=== PATIENT | female | born 1960 | race Caucasian/White ===

== ENCOUNTER 2021-04-11 20:21 | Inpatient (IN) | payer BC, SELFPAY ==
[2021-04-11] VITALS (7 sets, daily range): BP systolic 135–146; BP diastolic 85–90; PULSE 70–82; RESP 16–22; TEMP 37; O2SAT 97–98; BMI 22.7
--- NOTE | 2021-04-11 | ECG_ITS ---
Test Reason : BEHAVIROL Blood Pressure : / mmHG Vent. Rate : 076 BPM Atrial Rate : 076 BPM P-R Int : 172 ms QRS Dur : 066 ms QT Int : 392 ms P-R-T Axes : 068 -28 040 degrees QTc Int : 441 ms Normal sinus rhythm Minimal voltage criteria for LVH, may be normal variant Borderline ECG No previous ECGs available Referred By: Christian Jimenez Electronically Signed By:KEIRY MCKINNON
--- NOTE | ~2021-04-11 | XR_ITS ---
EXAMINATION: XR CHEST CLINICAL INFORMATION: Covid COMPARISON: None TECHNIQUE: Frontal view of the chest was obtained. FINDINGS: The right hemidiaphragm is mildly elevated and the lungs are hypoinflated. Degenerative changes present in the spine. No other significant abnormality is noted involving the heart, lungs, mediastinum, bony thorax or soft tissues. XR/XR chest 1V IMPRESSION: No acute intrathoracic disease
--- NOTE | ~2021-04-11 | XR_ITS ---
EXAMINATION: XR CHEST CLINICAL INFORMATION: Syncope COMPARISON: Chest x-ray 04/11/2021 TECHNIQUE: Frontal view of the chest was obtained. FINDINGS: No significant abnormality is noted involving the heart, lungs, mediastinum, bony thorax or soft tissues. XR/XR chest 1V IMPRESSION: Unremarkable chest exam.
--- NOTE | ~2021-04-11 | CT_ITS ---
EXAMINATION: CT BRAIN AND CT CERVICAL SPINE WITHOUT CONTRAST. CLINICAL INFORMATION: Fall. COMPARISON: None TECHNIQUE: 5 mm thin axial and reformatted 2 mm thin sagittal and coronal images of brain were obtained. Subsequently 3 mm thin axial and reformatted 2 mm thin sagittal and coronal images of cervical spine were obtained. DLP 1033. FINDINGS: Brain: There is no acute intra-axial, extra-axial bleed, masses, collection or midline shift. There is no acute infarction evolution. The lateral ventricles are symmetrical in size but enlarged. Bone windows reveal no calvarial abnormality. There is focal air collection the right frontoparietal scalp likely from fall. Minimal scalp hematoma with no underlying calvarial fracture seen. The paranasal sinuses and mastoid air cells are well-aerated. Cervical spine: There is normal cervical lordosis. The vertebral heights and alignment is normal. There is loss of C5-C6 disc height with moderate ventral and posterior spondylosis. There is mild ventral C6-C7 spondylosis well. The craniovertebral junction and the C1-C2 alignment is normal. There is mild C1-C2 superior spurring. The prevertebral soft tissues are normal. CT/CT head/brain wo con IMPRESSION: No acute intracranial process seen. Right frontal parietal scalp air collection likely overlying laceration and contusion. Minimal soft tissue swelling. No calvarial fracture. Mild degenerative disc changes C5-C6 disc level with mild ventral and posterior spondylosis. No visible acute fracture or dislocation seen.
--- NOTE | ~2021-04-11 | CT_ITS ---
EXAMINATION: NONCONTRAST HEAD CT NONCONTRAST CERVICAL SPINE CT INDICATION INFORMATION: Fall, seizure COMPARISON: 04/16/2021 TECHNIQUE: Separate noncontrast CT examinations of the head and cervical spine were performed. Coronal head CT images and coronal and sagittal cervical spine images were created at the technologist workstation. DLP: 929 mGy-cm DOSE LOWERING TECHNIQUES: This CT examination was performed using dose optimization techniques as appropriate, variously including the following: - Automated exposure control - Adjustment of mA and/or kV according to patient size (this includes techniques or standardized protocols for targeted exams were dose is matched to indication/reason for exam; i.e. extremities or head) - Use of iterative reconstruction technique FINDINGS: Head: Small focus of extra-axial hemorrhage is noted along the lateral right frontal lobe measuring 2 mm in thickness on image 84/172, likely subdural. There is no evidence of acute intracranial territorial infarction. No abnormal mass-effect or midline shift is seen. [place] to white matter differentiation is well preserved. The ventricles are normal in size. Mild volume loss is noted. No acute fracture is seen. There is a lateral left scalp soft tissue edema towards the vertex. Posterior right parietal skin marylu noted. The mastoid air cells and visualized portions of the paranasal sinuses are well-aerated. Cervical spine: There is anatomic alignment of the vertebral bodies and posterior elements. Vertebral body heights are maintained. There is mild disc space narrowing at C5-C6 with associated endplate osteophytes. No evidence of acute fracture. No prevertebral soft tissue swelling. Visualized portions of the lung apices are unremarkable. The thyroid gland is unremarkable. CT/CT cervical spine wo con IMPRESSION: 1. Small focus of subdural hematoma adjacent to the lateral right frontal lobe. 2. Mild lateral left scalp edema. Posterior parietal skin marylu. 3. No acute findings identified in the cervical spine. This critical result was discussed with Dr. Torres on 04/19/2021 5:52 AM, and it was ascertained that the content and urgency of the report was understood at the time of direct communication.
--- NOTE | ~2021-04-11 | CT_ITS ---
EXAMINATION: CT BRAIN AND CT CERVICAL SPINE WITHOUT CONTRAST. CLINICAL INFORMATION: Fall. COMPARISON: None TECHNIQUE: 5 mm thin axial and reformatted 2 mm thin sagittal and coronal images of brain were obtained. Subsequently 3 mm thin axial and reformatted 2 mm thin sagittal and coronal images of cervical spine were obtained. DLP 1033. FINDINGS: Brain: There is no acute intra-axial, extra-axial bleed, masses, collection or midline shift. There is no acute infarction evolution. The lateral ventricles are symmetrical in size but enlarged. Bone windows reveal no calvarial abnormality. There is focal air collection the right frontoparietal scalp likely from fall. Minimal scalp hematoma with no underlying calvarial fracture seen. The paranasal sinuses and mastoid air cells are well-aerated. Cervical spine: There is normal cervical lordosis. The vertebral heights and alignment is normal. There is loss of C5-C6 disc height with moderate ventral and posterior spondylosis. There is mild ventral C6-C7 spondylosis well. The craniovertebral junction and the C1-C2 alignment is normal. There is mild C1-C2 superior spurring. The prevertebral soft tissues are normal. CT/CT cervical spine wo con IMPRESSION: No acute intracranial process seen. Right frontal parietal scalp air collection likely overlying laceration and contusion. Minimal soft tissue swelling. No calvarial fracture. Mild degenerative disc changes C5-C6 disc level with mild ventral and posterior spondylosis. No visible acute fracture or dislocation seen.
--- NOTE | ~2021-04-11 | CT_ITS ---
EXAMINATION: CT HEAD WITHOUT CONTRAST CLINICAL INFORMATION: Head injury. Repeat seizure activity. COMPARISON: None TECHNIQUE: Contiguous axial imaging was performed from the skull base to vertex without intravenous administration of contrast. This CT examination was performed using dose optimization techniques as appropriate, variously including the following: *Automated exposure control *Adjustment of mA and/or kV according to patient size (this includes techniques or standardized protocols for targeted exams where dose is matched to indication/reason for exam; i.e. extremities or head) *Use of iterative reconstruction technique DLP: 653 mGy-cm FINDINGS: There is no evidence of acute intracranial hemorrhage or territorial infarction. No abnormal mass effect or midline shift is seen. [place] to white matter differentiation is well preserved. No extra-axial fluid collections are identified. The ventricles are normal in size. There is no abnormal attenuation within the brain parenchyma. The osseous structures and soft tissues are normal. The mastoid air cells and visualized portions of the paranasal sinuses are well aerated. CT/CT head/brain wo con IMPRESSION: No acute intracranial process seen.
--- NOTE | ~2021-04-11 | XR_ITS ---
EXAMINATION: XR WRIST, RIGHT CLINICAL INFORMATION: Pain. Fall. COMPARISON: None TECHNIQUE: PA, lateral, and oblique views of the right wrist. FINDINGS: Bone alignment is normal. No fracture or dislocation is seen. There is arthritis at the first ALF joint. Joint spaces are otherwise normal. Soft tissues are normal. XR/XR wrist RT 2V IMPRESSION: No fracture or dislocation seen.
--- NOTE | 2021-04-11 20:44 | ED.GENADULT ---
HPI - General Adult General Chief complaint: General Medical Stated complaint: AMS Time Seen by Provider: 04/11/21 20:44 Source: EMS and old records reviewed Mode of arrival: EMS History of Present Illness HPI narrative: Patient COVID positive 14 days ago came from senior care for increased agitation patient does have history of TBI, for last 2 days patient has been more agitated no fever no chills when she arrived she was saturating 97% on room air afebrile patient received 1 mg Ativan at nursing Related Data Allergies Allergy/AdvReac Type Severity Reaction Status Date / Time No Known Allergies Allergy Verified 04/11/21 20:47 Review of Systems Review of Systems: Yes Unobtainable due to mental status PMFSH Past Medical History Medical History TBI (traumatic brain injury) Social History Social History Advance Directives: No Advance Directives Information Provided: No Patient : No Physical Exam Vital Signs: Vital Signs: Last Vital Signs Temp 98.6 F 04/11/21 22:00 Pulse 65 04/12/21 00:08 Resp 15 04/12/21 00:08 BP 119/69 04/12/21 00:08 Pulse Ox 97 04/12/21 00:08 Body Mass Index 22.7 Appearance: Alert. Oriented X1-2. No acute distress. Agitated Eyes: PERRLA, no pallor icterus ENT: Pharynx normal. Oral Mucosa moist Neck: Normal inspection. Neck supple. CVS: Normal heart rate and rhythm. Pulses normal. Respiratory: No respiratory distress. Equal air entry bilateral, no wheezing/rales/rhonchi Abdomen: Soft and nontender. Bowel sounds are present, no mass palpable, no CVA tenderness Skin: Skin warm and dry. Normal skin color. Normal skin turgor. Extremities: No lower extremity edema. No calf tenderness Neuro: Oriented X1-2. No motor deficit. No sensory deficit.No cerebellar signs , cranial nerves II-XII intact Medical Decision Making MDM Narrative Medical decision making narrative: Patient workup negative for any acute symptoms from TBI with psychotic behavior no signs of COVID infection at this time saturating 97 % on room air repeat COVID test is negative patient was very agitated when arrived trying to tangle Otoscope cord over staff , [place] unable to manage , plan to place her in [facility] , case management and care team were consulted Lab Data Lab results reviewed: Yes I reviewed the patient's lab results. Result diagrams: 04/11/21 22:32 04/11/21 22:32 Labs: Lab Results 04/11/21 04/11/21 04/11/21 Range/Units 22:32 22:32 22:43 WBC 5.4 (4.8-10.8) X10*3/uL RBC 4.36 (4.20-5.50) X10*6/uL Hgb 13.1 (12.0-16.0) g/dl Hct 38.7 (37-47) % MCV 88.8 (80-98) fL MCH 30.0 (27.0-33.0) pg MCHC 33.9 (31.0-35.0) g/dl RDW 13.1 (11.0-16.0) % Plt Count 172 (160-400) X10*3/uL MPV 11.8 (9.4-12.3) fL Immature Gran % (Auto) 0.4 (0.0-0.4) % Neut % (Auto) 46.6 (45-73) % Lymph % (Auto) 43.9 H (20-40) % [place] % (Auto) 8.0 (2-11) % Eos % (Auto) 0.7 (0-4) % Baso % (Auto) 0.4 (0-2) % Lymph # (Auto) 2.4 (1.2-4.9) X10*3/uL [place] # (Auto) 0.4 (0.1-1.2) X10*3/uL Eos # (Auto) 0.0 (0.0-0.4) X10*3/uL Baso # (Auto) 0.0 (0.0-0.2) X10*3/uL Abs Immat Gran (auto) 0.02 (0.00-0.03) X10*3/uL Absolute Neuts (auto) 2.5 (2.0-8.3) X10*3/uL Absolute Nucleated RBC 0.000 (0.0-0.012) X10*3/uL Nucleated RBC % (auto) 0.0 (0.0-0.2) /100WBC Sodium 139 (135-145) mmol/L Potassium 4.5 (3.3-5.1) mmol/L Chloride 105 (96-108) mmol/L Carbon Dioxide 29 (22-29) mmol/L Anion Gap 10 L (12-20) BUN 8 L (9-16) mg/dL Creatinine 0.87 (0.5-1.4) mg/dL Estim Creat Clear Calc 65.2 Estimated GFR > 60 Random Glucose 102 (60-115) mg/dL Calcium 9.9 (8.4-10.2) mg/dL Total Bilirubin 0.9 (0.0-1.0) mg/dL AST 15 (5-31) U/L ALT 7 (0-31) U/L Alkaline Phosphatase 53 (39-117) U/L Total Protein 6.5 (6.5-8.0) g/dL Albumin 4.0 (3.5-5.0) g/dL Urine Color Urine Appearance Urine pH (5.0-8.0) Ur Specific [place] (1.005-1.025) Urine Protein (NEG-TRACE) MG/DL Urine Glucose (UA) (NEG) MG/DL Urine Ketones (NEG) MG/DL Urine Blood (NEG) Urine Nitrite (NEG) Ur Leukocyte Esterase (NEG) COVID-19 (ASAD) Negative (Negative) COVID-19 Clin Com See Note 04/11/21 Range/Units 22:43 WBC (4.8-10.8) X10*3/uL RBC (4.20-5.50) X10*6/uL Hgb (12.0-16.0) g/dl Hct (37-47) % MCV (80-98) fL MCH (27.0-33.0) pg MCHC (31.0-35.0) g/dl RDW (11.0-16.0) % Plt Count (160-400) X10*3/uL MPV (9.4-12.3) fL Immature Gran % (Auto) (0.0-0.4) % Neut % (Auto) (45-73) % Lymph % (Auto) (20-40) % [place] % (Auto) (2-11) % Eos % (Auto) (0-4) % Baso % (Auto) (0-2) % Lymph # (Auto) (1.2-4.9) X10*3/uL [place] # (Auto) (0.1-1.2) X10*3/uL Eos # (Auto) (0.0-0.4) X10*3/uL Baso # (Auto) (0.0-0.2) X10*3/uL Abs Immat Gran (auto) (0.00-0.03) X10*3/uL Absolute Neuts (auto) (2.0-8.3) X10*3/uL Absolute Nucleated RBC (0.0-0.012) X10*3/uL Nucleated RBC % (auto) (0.0-0.2) /100WBC Sodium (135-145) mmol/L Potassium (3.3-5.1) mmol/L Chloride (96-108) mmol/L Carbon Dioxide (22-29) mmol/L Anion Gap (12-20) BUN (9-16) mg/dL Creatinine (0.5-1.4) mg/dL Estim Creat Clear Calc Estimated GFR Random Glucose (60-115) mg/dL Calcium (8.4-10.2) mg/dL Total Bilirubin (0.0-1.0) mg/dL AST (5-31) U/L ALT (0-31) U/L Alkaline Phosphatase (39-117) U/L Total Protein (6.5-8.0) g/dL Albumin (3.5-5.0) g/dL Urine Color YELLOW Urine Appearance CLEAR Urine pH 6.5 (5.0-8.0) Ur Specific [place] <= 1.005 (1.005-1.025) Urine Protein NEG (NEG-TRACE) MG/DL Urine Glucose (UA) NEG (NEG) MG/DL Urine Ketones NEG (NEG) MG/DL Urine Blood NEG (NEG) Urine Nitrite NEG (NEG) Ur Leukocyte Esterase NEG (NEG) COVID-19 (ASAD) (Negative) COVID-19 Clin Com Discharge Plan Discharge Clinical Impression: Restlessness and agitation Instructions: Conduct Disorder (ED)
[2021-04-11] MEDS: Haloperidol Lactate 5 MG/ML VIAL 2 MG IM (21:12)
[2021-04-11] MEDS: LORazepam 2 MG/ML VIAL IM (21:13)
--- NOTE | 2021-04-11 21:45 | PC.NURSE ---
PATIENT IS AGITATED ON ARRIVAL, TAKING MEDICAL EQUIPMENT OFF THE WALL AND TARGETING STAFF MEMBERS ATTEMPTING TO HURT THEM. SWEARING AND YELLING AT STAFF MEMBERS. KICKING, SEVERLY AGITATED. MD ORDERS TO IM MEDIATIONS FOR BEHAVIORA SNA TO HELP GET PATIENT IN BEHAVIORAL CONTROL. PATIENTS DAUGHTER INT HE WAITING ROOM, INFORMING DAUGHTER OF PLAN OF CARE ONCE PATIENT IS ABLE TO FURTHER EXPRESS HERSELF. MEDICATED TO HAVE PATIENT BETTER PARTICIPATE IN HER PLAN OF CARE. PATIENT BECOMING MORE CALM AND TIRED, NOT FALLING ASLEEP BUT ABLE TO TALK CALMLY TO STAFF.
--- NOTE | 2021-04-11 22:03 | PC.NURSE ---
DAUGHTER'S NUMBER IS [phone]. DAUGHTER WOULD LIKE TO BE CONTACTED PRIOR TO ANY MEDICATION ADMINISTRATION AND WITH RESULTS.
[2021-04-11 22:38] LABS: MANUAL DIFF FLAG NO
[2021-04-11 22:39] LABS: Basophils Percent Auto 0.4 % (0-2); Eosinophils Percent Auto 0.7 % (0-4); Hematocrit 38.7 % (37-47); Hemoglobin 13.1 g/dl (12.0-16.0); Imm Gran Abs Auto 0.02 X10*3/uL (0.00-0.03); Imm Gran Pct Auto 0.4 % (0.0-0.4); Lymphocytes Absolute Auto 2.4 X10*3/uL (1.2-4.9); Lymphocytes Percent Auto 43.9 % (20-40); Mean Corpuscular HGB Conc 33.9 g/dl (31.0-35.0); Mean Corpuscular Volume 88.8 fL (80-98); Mean Platelet Volume 11.8 fL (9.4-12.3); Monocytes Absolute Auto 0.4 X10*3/uL (0.1-1.2); Neutrophils Absolute Auto 2.5 X10*3/uL (2.0-8.3); Neutrophils Percent Auto 46.6 % (45-73); Platelet Count 172 X10*3/uL (160-400); Red Blood Count 4.36 X10*6/uL (4.20-5.50); Red Cell Distribution Width 13.1 % (11.0-16.0); White Blood Count 5.4 X10*3/uL (4.8-10.8)
[2021-04-11 22:51] LABS: Appearance Urine CLEAR; Color Urine YELLOW; Glucose Urine UA NEG (NEG); Leukocyte Esterase Urine NEG (NEG); Nitrite Urine NEG (NEG); PH 6.5 (5.0-8.0); Specific Gravity - Urine <= 1.005 (1.005-1.025); Urine Blood NEG (NEG); Urine Ketones NEG (NEG); Urine Protein NEG (NEG-TRACE)
[2021-04-11 22:55] LABS: Alanine Aminotransferase 7 U/L (0-31); Alkaline Phosphatase 53 U/L (39-117); Anion Gap 10 (12-20); Aspartate Amino Transferase 15 U/L (5-31); Bilirubin Total 0.9 mg/dL (0.0-1.0); Blood Urea Nitrogen 8 mg/dL (9-16); Calcium 9.9 mg/dL (8.4-10.2); Carbon Dioxide 29 mmol/L (22-29); Chloride 105 mmol/L (96-108); Creatinine Clr Calc Pharmacy 65.2; Estimated Glomerular Filt Rate > 60; Glucose Random 102 mg/dL (60-115); Potassium 4.5 mmol/L (3.3-5.1); Sodium 139 mmol/L (135-145); Total Protein 6.5 g/dL (6.5-8.0)
[2021-04-11 23:05] LABS: COVID-19 Test Negative (Negative); IDNOW Serial# 9DD0AD1C
[2021-04-12] VITALS (11 sets, daily range): BP systolic 119–138; BP diastolic 69–86; PULSE 60–71; RESP 14–20; TEMP 36.4; O2SAT 95–98
--- NOTE | 2021-04-12 00:18 | PC.NURSE ---
This RN first encounter with pt. Pt is resting with eyes closed on stretcher, arousable to voice. Pt repositioning independently. Pt with sitter 1:1. Pt denies pain/discomfort. Pt without nonverbal indicators of pain/discomfort. Pt RR even and unlabored on RA, skin warm dry and normal in appearance for age and race. Dr Wilson made aware that pt has no PIV access and that NS bolus as ordered has not been administered. Per Dr Wilson she doesn't need it. Pt stretcher in low locked position, rails raised, call chiang within reach. Pt NSR on registered nurse cardiac telemetry, vss.
--- NOTE | 2021-04-12 00:25 | PC.NURSE ---
attempted a call to the [facility] in [place]. staff member on the phone stating that there will be no nurse in the building to discuss the patient at 8am in the morning. discussing plan of care with the provider, plan will be for care team consult and case management. patient was very confused and agitated on arrival which differs from patients baseline according to the daughter.
--- NOTE | 2021-04-12 01:29 | PC.NURSE ---
Med Rec performed by this RN with MAR sent by facility. Dr Kiser made aware, this RN requested that Dr Kiser continue home meds. Pt dispo is CM and CARE team stan/marni. Sitter remains at bedside. Pt stretcher low locked, rails raised, call chiang within reach.
--- NOTE | 2021-04-12 02:12 | MHC.CARE ---
T/W spoke with RN making her aware that pt will be seen in the morning. Pt was reportedly medicated and ED staff were unable to communicate plan of care with nursing facility. Pt will be seen by CARE team.
--- NOTE | 2021-04-12 06:12 | PC.NURSE ---
Cherri, daughter and HCP, wants to be updated before any medications or decisions are made regarding pt's care. [phone]
--- NOTE | 2021-04-12 09:05 | MHC.CM.ED ---
Per Ama of Care Team, looking for information about what assisted living facility to requesting before patient return to their facility. Patient is from the [facility] in [place]. T/W spoke with ROGERIO Mccormick. Patient has only been there for about a month. She has been exhibiting increased combative behavior. She is seen by Antonia Carrasquillo NP for psych. T/W left a voicemail at [phone] requesting Antonia call back. Continue to monitor for d/c needs.
--- NOTE | 2021-04-12 09:26 | PC.NURSE ---
Pt has been ambulatory to BR, steady with sitter. unlabored resp. oriented to person only. thinks this RN is a relative. pt unable to follow thread of conversation but can follow commands. skin pwd. crying at times. daughter has been on phone to advocate for a geripsych assessment.
[2021-04-12] MEDS: polyethylene glycoL 3350 17 GM POWD.PACK PO (09:30)
[2021-04-12] MEDS: Divalproex Sodium 250 MG TABLET.DR PO ×2 (09:30→20:34)
[2021-04-12] MEDS: LORazepam 0.5 MG TABLET PO ×3 (09:30→15:35)
--- NOTE | 2021-04-12 10:38 | PC.NURSE ---
pt taking sheets off bed, pacing, crying and asking that her father come visit. difficult to redirect. sitter in room with patient to maintain safety.
--- NOTE | 2021-04-12 11:36 | PC.NURSE ---
resting quietly in bed.
--- NOTE | 2021-04-12 14:17 | MHC.CM.ED ---
Spoke with patient's outpatient psych nurse, Antonia Carrasquillo via telephone at [phone].Antonia treated patient's mother for early dementia in the past. Antonia has been treating patient since move to the [facility] psych. Patient has a seizure disorder, early onsite dementia, ADD, and multiple TBI from falling off horses. Antonia has been adjusting medication as situations have come up. Antonia recommends starting Phenobarbital 10mg PO TID. If started today and patient's behaviors are improved, she can return to the [facility] tomorrow, Friday 04/13. Dr Jones aware. Continue to monitor for d/c needs.
--- NOTE | 2021-04-12 14:40 | ED_ITS ---
HPI - General Adult General Chief complaint: General Medical Stated complaint: AMS Time Seen by Provider: 04/11/21 20:44 Source: EMS and old records reviewed Mode of arrival: EMS Related Data Home Medications Medication Instructions Recorded Confirmed acetaminophen 325 mg tablet 650 mg PO Q6H PRN 04/12/21 04/12/21 (Tylenol) atomoxetine 10 mg capsule 10 mg PO DAILY 04/12/21 04/12/21 divalproex 125 mg tablet,delayed 1 tab PO BEDTIME 04/12/21 04/12/21 release divalproex 250 mg tablet,delayed 1 tab PO BID 04/12/21 04/12/21 release dronabinol 2.5 mg capsule 1 cap PO BID 04/12/21 04/12/21 lidocaine 5 % topical ointment 1 appl TOPICAL BID PRN 04/12/21 04/12/21 lorazepam 0.5 mg tablet (Ativan) 0.5 mg PO BID PRN 04/12/21 04/12/21 lorazepam 0.5 mg tablet (Ativan) 0.5 mg PO TID 04/12/21 04/12/21 lorazepam 1 mg tablet (Ativan) 0.5 mg PO BID PRN 04/12/21 04/12/21 polyethylene glycol 3350 17 17 g PO DAILY 04/12/21 04/12/21 gram/dose oral powder (Miralax) sennosides 8.6 mg tablet (senna) 8.6 mg PO BEDTIME 04/12/21 04/12/21 Allergies Allergy/AdvReac Type Severity Reaction Status Date / Time No Known Allergies Allergy Verified 04/11/21 20:47 [facility] Past Medical History Medical History TBI (traumatic brain injury) Social History Social History Advance Directives: No Advance Directives Information Provided: No Patient : No Physical Exam Vital Signs: Vital Signs: Last Vital Signs Temp 97.5 F 04/12/21 06:00 Pulse 71 04/12/21 13:56 Resp 18 04/12/21 13:56 BP 138/86 04/12/21 13:56 Pulse Ox 98 04/12/21 13:56 Body Mass Index 22.7 Medical Decision Making Lab Data Result diagrams: 04/11/21 22:32 04/11/21 22:32 Labs: Lab Results 04/11/21 04/11/21 04/11/21 Range/Units 22:32 22:32 22:43 WBC 5.4 (4.8-10.8) X10*3/uL RBC 4.36 (4.20-5.50) X10*6/uL Hgb 13.1 (12.0-16.0) g/dl Hct 38.7 (37-47) % MCV 88.8 (80-98) fL MCH 30.0 (27.0-33.0) pg MCHC 33.9 (31.0-35.0) g/dl RDW 13.1 (11.0-16.0) % Plt Count 172 (160-400) X10*3/uL MPV 11.8 (9.4-12.3) fL Immature Gran % (Auto) 0.4 (0.0-0.4) % Neut % (Auto) 46.6 (45-73) % Lymph % (Auto) 43.9 H (20-40) % [place] % (Auto) 8.0 (2-11) % Eos % (Auto) 0.7 (0-4) % Baso % (Auto) 0.4 (0-2) % Lymph # (Auto) 2.4 (1.2-4.9) X10*3/uL [place] # (Auto) 0.4 (0.1-1.2) X10*3/uL Eos # (Auto) 0.0 (0.0-0.4) X10*3/uL Baso # (Auto) 0.0 (0.0-0.2) X10*3/uL Abs Immat Gran (auto) 0.02 (0.00-0.03) X10*3/uL Absolute Neuts (auto) 2.5 (2.0-8.3) X10*3/uL Absolute Nucleated RBC 0.000 (0.0-0.012) X10*3/uL Nucleated RBC % (auto) 0.0 (0.0-0.2) /100WBC Sodium 139 (135-145) mmol/L Potassium 4.5 (3.3-5.1) mmol/L Chloride 105 (96-108) mmol/L Carbon Dioxide 29 (22-29) mmol/L Anion Gap 10 L (12-20) BUN 8 L (9-16) mg/dL Creatinine 0.87 (0.5-1.4) mg/dL Estim Creat Clear Calc 65.2 Estimated GFR > 60 Random Glucose 102 (60-115) mg/dL Calcium 9.9 (8.4-10.2) mg/dL Total Bilirubin 0.9 (0.0-1.0) mg/dL AST 15 (5-31) U/L ALT 7 (0-31) U/L Alkaline Phosphatase 53 (39-117) U/L Total Protein 6.5 (6.5-8.0) g/dL Albumin 4.0 (3.5-5.0) g/dL Urine Color Urine Appearance Urine pH (5.0-8.0) Ur Specific [place] (1.005-1.025) Urine Protein (NEG-TRACE) MG/DL Urine Glucose (UA) (NEG) MG/DL Urine Ketones (NEG) MG/DL Urine Blood (NEG) Urine Nitrite (NEG) Ur Leukocyte Esterase (NEG) COVID-19 (ASAD) Negative (Negative) COVID-19 Clin Com See Note 04/11/21 Range/Units 22:43 WBC (4.8-10.8) X10*3/uL RBC (4.20-5.50) X10*6/uL Hgb (12.0-16.0) g/dl Hct (37-47) % MCV (80-98) fL MCH (27.0-33.0) pg MCHC (31.0-35.0) g/dl RDW (11.0-16.0) % Plt Count (160-400) X10*3/uL MPV (9.4-12.3) fL Immature Gran % (Auto) (0.0-0.4) % Neut % (Auto) (45-73) % Lymph % (Auto) (20-40) % [place] % (Auto) (2-11) % Eos % (Auto) (0-4) % Baso % (Auto) (0-2) % Lymph # (Auto) (1.2-4.9) X10*3/uL [place] # (Auto) (0.1-1.2) X10*3/uL Eos # (Auto) (0.0-0.4) X10*3/uL Baso # (Auto) (0.0-0.2) X10*3/uL Abs Immat Gran (auto) (0.00-0.03) X10*3/uL Absolute Neuts (auto) (2.0-8.3) X10*3/uL Absolute Nucleated RBC (0.0-0.012) X10*3/uL Nucleated RBC % (auto) (0.0-0.2) /100WBC Sodium (135-145) mmol/L Potassium (3.3-5.1) mmol/L Chloride (96-108) mmol/L Carbon Dioxide (22-29) mmol/L Anion Gap (12-20) BUN (9-16) mg/dL Creatinine (0.5-1.4) mg/dL Estim Creat Clear Calc Estimated GFR Random Glucose (60-115) mg/dL Calcium (8.4-10.2) mg/dL Total Bilirubin (0.0-1.0) mg/dL AST (5-31) U/L ALT (0-31) U/L Alkaline Phosphatase (39-117) U/L Total Protein (6.5-8.0) g/dL Albumin (3.5-5.0) g/dL Urine Color YELLOW Urine Appearance CLEAR Urine pH 6.5 (5.0-8.0) Ur Specific [place] <= 1.005 (1.005-1.025) Urine Protein NEG (NEG-TRACE) MG/DL Urine Glucose (UA) NEG (NEG) MG/DL Urine Ketones NEG (NEG) MG/DL Urine Blood NEG (NEG) Urine Nitrite NEG (NEG) Ur Leukocyte Esterase NEG (NEG) COVID-19 (ASAD) (Negative) COVID-19 Clin Com Discharge Plan Discharge Clinical Impression: Restlessness and agitation Instructions: Conduct Disorder (ED) Prescriptions: No Action divalproex 250 mg tablet,delayed release (DR/EC) 1 tab PO BID RF: 0 divalproex 125 mg tablet,delayed release (DR/EC) 1 tab PO BEDTIME RF: 0 polyethylene glycol 3350 [Miralax] 17 gram/dose Powder 17 g PO DAILY RF: 0 sennosides [senna] 8.6 mg Tablet 8.6 mg PO BEDTIME RF: 0 dronabinol 2.5 mg capsule 1 cap PO BID RF: 0 lorazepam [Ativan] 0.5 mg Tablet 0.5 mg PO TID RF: 0 acetaminophen [Tylenol] 325 mg Tablet 650 mg PO Q6H PRN (Reason: Pain) RF: 0 lidocaine 5 % ointment 1 appl topical BID PRN (Reason: Pain) RF: 0 lorazepam [Ativan] 0.5 mg Tablet 0.5 mg PO BID PRN (Reason: Anxiety) RF: 0 lorazepam [Ativan] 1 mg Tablet 0.5 mg PO BID PRN (Reason: Seizures) RF: 0 atomoxetine 10 mg Capsule 10 mg PO DAILY RF: 0
--- NOTE | 2021-04-12 15:08 | PC.NURSE ---
Rn to RN benjamín Gibbons. Pt will be moved to the Pod.
--- NOTE | 2021-04-12 15:24 | MHC.CARE ---
CARE Team spoke with Pts HCP and POA who provided information regarding Pts psych history . CARE Team relayed information to CM and health care technician. CARE Team available as needed.
[2021-04-12] MEDS: PHENobarbitaL 15 MG TABLET 7.5 MG PO ×2 (15:34→19:53)
--- NOTE | 2021-04-12 16:33 | MHC.CM.ED ---
Elinor Psych N.P. spoke with Cm in regards to patients medication adjustments, stating that patient is now on phenobarbital. Pt has had one does. Elinor feels pt will need tomorrow for observation for medication effects (04/13) and then should be ready for d/c back to the [facility] on Friday, 04/14. Elinor also spoke with pt RN. CM will continue to follow for d/c needs.
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
--- NOTE | 2021-04-12 18:26 | PC.NURSE ---
pt remains needing 1:1 supervision. pt is very touchy, and needs constant redirection. pt pacing up and down the unit trying to enter other rooms. pt going between episodes of happiness and crying.
[2021-04-12] MEDS: Divalproex Sodium 250 MG TABLET.DR 125 MG PO (19:52)
[2021-04-12] MEDS: Sennosides 8.6 MG TABLET PO (19:52)
[2021-04-12] MEDS: OLANZapine 10 MG VIAL 5 MG IM (20:33)
[2021-04-12] MEDS: OLANZapine 10 MG TABLET PO (20:33)
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
--- NOTE | 2021-04-13 06:27 | PC.NURSE ---
Patient slept through the night, no distress observed/reported, patient is being watch on close observation, VSS, med compliant, elimination intact, will continue to monitor.
[2021-04-13 06:41] VITALS: BP 139/100; PULSE 70; RESP 14; O2SAT 100
--- NOTE | 2021-04-13 07:40 | PC.NURSE ---
pt active in department. in and out of room repeatedly, unable to maintain orientation to unit as far as bedroom, bathroom. attempts to enter other patient's rooms. MHTs keeping a close eye to maintain safety and privacy for unit. Pt is steady on her feet. oriented only to self.
[2021-04-13 07:53] VITALS: BP 124/81; PULSE 84; RESP 15
[2021-04-13] MEDS: OLANZapine 5 MG TABLET PO ×3 (08:04→20:03)
[2021-04-13] MEDS: polyethylene glycoL 3350 17 GM POWD.PACK PO (08:05)
[2021-04-13] MEDS: Divalproex Sodium 250 MG TABLET.DR PO ×2 (08:05→20:04)
[2021-04-13] MEDS: OLANZapine 10 MG VIAL 5 MG IM (08:35)
--- NOTE | 2021-04-13 08:52 | PC.NURSE ---
Pt given PO PRN olanzapine for escalating behaviors and increased difficulty redirecting. PO med had no notable effect. Pt was too disorganized to eat breakfast. Aproc 0815 pt began swinging at staff, unable to redirect to room, pushing against both pod doors. Security was unavailable at the time but Pod staff were able to pyscially escort pt back to bed and administer IM med. Pt continues to walk around in room, throwing linens etc but with less energy. Skin PWD. remains steady on feet.
--- NOTE | 2021-04-13 09:44 | PC.NURSE ---
Pt is starting to calm. MHT remains outside of bedroom.
[2021-04-13 10:31] LABS: Glucose, Whole Blood 97 mg/dL (60-115)
[2021-04-13 10:47] LABS: Ammonia 39 umol/L (13-55)
--- NOTE | 2021-04-13 10:59 | PC.NURSE ---
Remains awake, ambulating in department. Redirectable with some difficulty.
--- NOTE | 2021-04-13 12:13 | PC.NURSE ---
Cecilia from [facility] on [address], Juan Manuel calling for update.
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
[2021-04-13 14:00] VITALS: RESP 18
--- NOTE | 2021-04-13 14:59 | PC.NURSE ---
walking back and forth to bathroom, attempting to enter patient rooms, difficult to redirect. aggressive and aggitated at times.
--- NOTE | 2021-04-13 15:04 | PC.NURSE ---
offered lunch again. hasn't eaten all day.
[2021-04-13] MEDS: Haloperidol Lactate 5 MG/ML VIAL IM (15:52)
[2021-04-13 15:56] LABS: Glucose, Whole Blood 134 mg/dL (60-115)
--- NOTE | 2021-04-13 16:14 | PC.NURSE ---
late entry 1530 pt had been ambulatory back and forth to bathroom repeatedly. increasing aggitation then when being redirected from other patient rooms began to swing at staff. was physically guided into her room and attempts to calm patient didn't work. offered pudding with zyprexa which was not accepted. IM haldol administered with security presence for physical hold.
[2021-04-13] MEDS: LORazepam 1 MG TABLET 2 MG PO (17:06)
[2021-04-13 17:38] VITALS: RESP 16
--- NOTE | 2021-04-13 17:38 | MHC.CARE ---
CARE Team conducted an exhaustive bed-search for patient for today. CARE Team called all appropriate sha psych units including [facility], [facility], [facility], [facility], [facility], [facility], [facility] for [facility], [facility], [facility], [facility], [facility], [place], and [place] and no beds were available. CARE Team will continue bedsearch tomorrow.
--- NOTE | 2021-04-13 18:10 | PC.NURSE ---
resting quietly in back room
[2021-04-13] MEDS: Sennosides 8.6 MG TABLET PO (20:02)
[2021-04-13] MEDS: Lithium Carbonate 300 MG CAPSULE PO (20:03)
[2021-04-13] MEDS: Divalproex Sodium 250 MG TABLET.DR 125 MG PO (20:03)
--- NOTE | 2021-04-13 23:19 | MHC.CM.ED ---
Pt came to [facility] for medication stabilization for behaviors from the [facility]. Pt had been hospitalized at [facility] for 3 months for behaviors and medication management. Pt is highy manic, confused, and throwing feces in the pod. Elinor Oconnor has been caring for pt. Tried phenobarbital, but pt is having ;reactions and now they will try lithium. Return to [facility] is on hold. [facility] offered the family ECT, but they refused. Both Elinor Oconnor and [facility] are concerned this may be her baseline behavior. The family does not want the patient to return to the [facility] and the [facility] will not accept pt with these behaviors. Pt will need placement. Care team is conducting bed search. They are unsure if patient is appropriate patient for [facility] sha psych because she is only 61 and not appropriate for M3. Finding placement for patient with these behaviors will be very difficult. Emeli Santiago and Carolina Rascon aware of situation. Care team and Elinor Oconnor are following pt presently. CM will follow if services are needed.
--- NOTE | 2021-04-13 23:30 | MHC.CM.ED ---
Pt will remain in [facility] pod over the weekend and CARE team, Yu JESUS and Elinor Oconnor will follow up on Friday.
--- NOTE | 2021-04-14 06:49 | PC.NURSE ---
Patient slept through the night, no distress observed/reported during overnight shift, medication compliant, behavior unpredictable, mood labile, will continue to monitor.
[2021-04-14] MEDS: OLANZapine 5 MG TABLET PO ×3 (07:15→23:39)
[2021-04-14] MEDS: LORazepam 0.5 MG TABLET PO ×3 (07:15→16:35)
[2021-04-14] MEDS: Divalproex Sodium 250 MG TABLET.DR PO ×2 (08:01→21:09)
[2021-04-14] MEDS: Lithium Carbonate 300 MG CAPSULE PO ×2 (08:02→21:10)
--- NOTE | 2021-04-14 08:07 | PC.NURSE ---
patient in nearly constant motion, took prn medications easily, complaints of rudeness of people wanting to check in with job talk with her sister or friend takes liquids when offered most times, restless.
[2021-04-14] MEDS: polyethylene glycoL 3350 17 GM POWD.PACK PO (10:14)
--- NOTE | 2021-04-14 13:49 | PC.NURSE ---
awoke from nap about 1315 and became immediately exit seeking ands striking at staff, changing targets, going into peers rooms, needing constant attendance to keep her safe, going into peers rooms and swinging at staff.
--- NOTE | 2021-04-14 14:52 | PC.NURSE ---
staff from [facility] called to check in with staff. they report to t/w client is a vegetarian
[2021-04-14] MEDS: Divalproex Sodium 250 MG TABLET.DR 125 MG PO (21:09)
[2021-04-14] MEDS: Sennosides 8.6 MG TABLET PO (21:10)
--- NOTE | 2021-04-14 22:50 | PC.NURSE ---
Patient is currently in bed, was earlier pacing aimlessly in the POD, requires constant re-direction and observation, requires lot of prompting to take her medication, will continue to monitor
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
[2021-04-15] MEDS: LORazepam 0.5 MG TABLET PO ×3 (02:48→13:55)
--- NOTE | 2021-04-15 03:02 | PC.NURSE ---
Patient still pacing in the hallway, hitting staff member, patient combative when asked to have her hospital attire on however with staff help and support she had her attire finally on after struggle, staff reported patient had some redness on her wrist, ROM intact, prn Ativan 0.5 mg offered/refused first but eventually with ice cream, pending effect will continue to monitor.
--- NOTE | 2021-04-15 06:24 | PC.NURSE ---
Patient was mostly up whole night, pacing, restless, combative, physically abusive towards staff, minimally re-directable, patient is case management bed search, no update on bed search, will continue to monitor.
--- NOTE | 2021-04-15 07:14 | PC.NURSE ---
patient appears to remain at rest at present, appears in no distress
[2021-04-15] MEDS: Divalproex Sodium 250 MG TABLET.DR PO ×2 (09:22→20:33)
[2021-04-15] MEDS: Lithium Carbonate 300 MG CAPSULE PO ×2 (09:23→20:05)
[2021-04-15] MEDS: OLANZapine 5 MG TABLET PO ×2 (09:23→13:56)
--- NOTE | 2021-04-15 10:08 | PC.NURSE ---
patient appears to have been awake about one hour seemingly confused but less agitated than yesterday so far.
[2021-04-15] MEDS: polyethylene glycoL 3350 17 GM POWD.PACK PO (11:22)
--- NOTE | 2021-04-15 12:26 | PC.NURSE ---
patient who only slept 2 hours last night just settling down now for a nap
--- NOTE | 2021-04-15 13:21 | PC.NURSE ---
patient with only moderate prompting eating aaron de paz, and in talking to this program writer stated i havent eaten in days and also recalled an ice cream she had eaten earlier in day
[2021-04-15] MEDS: Acetaminophen 325 MG TABLET 650 MG PO (13:56)
--- NOTE | 2021-04-15 14:11 | PC.NURSE ---
patient brushed teeth with minimal prompting, also recognized that lockers were where her clothing was.
--- NOTE | 2021-04-15 14:12 | PC.NURSE ---
Addendum entered by Deborah Gutierrez 04/15/21 14:16: name and number for brother: Sid Costa [phone] Original Note: patients bother also in to visit
--- NOTE | 2021-04-15 15:42 | MHC.CARE ---
Spoke with Brother, Sid Costa and provided more history in regards to his sister. He stated that she lived in [place] from [id number] where she and had two children. Upon her divorce in 1999, she moved back to the [facility] with her two children. He continues to report that she has two Master's degree's and worked as a physical science teacher since 1999. He continues to report that she had to leave her position due to her declining mental faculties. He states that the family has noticed a decline since the Pt was 54, and that she was able to manage until recently. He also reported that 7-8 years ago she stopped taking her Depakote, as she thought she no longer needed it. She then had a seizure and has been on it since.
[2021-04-15] MEDS: Lithium Carbonate 300 MG TABLET 150 MG PO (20:05)
[2021-04-15] MEDS: Sennosides 8.6 MG TABLET PO (20:21)
[2021-04-15] MEDS: Divalproex Sodium 250 MG TABLET.DR 125 MG PO (20:21)
[2021-04-16] MEDS: OLANZapine 5 MG TABLET PO (00:41)
--- NOTE | 2021-04-16 06:07 | PC.NURSE ---
Patient slept through the night, no distress observed/reported, out of room for bathroom use and back, required redirection and prompting, patient needs lot prompting for medication administration/took all her medication, patient is case management bed search, behavior at base line, will continue to monitor.
--- NOTE | 2021-04-16 07:11 | PC.NURSE ---
patient appears to remains asleep at present with even regular respirations, patient appears in no distress.
[2021-04-16 09:02] VITALS: BP 176/135; PULSE 105; RESP 13; O2SAT 98
--- NOTE | 2021-04-16 09:02 | PC.NURSE ---
pt transfered from the pod s/p fall, pt has c-collar and boarded. moderate of blood noted from the back of pt's head. dr. lomeli at bedside.
--- NOTE | 2021-04-16 09:04 | PC.NURSE ---
in delivering clients medications patient seemed to want to be selective with meds, singled out one lithium pill, gave other meds to staff, dropped water which seemed to alarm and confuse her reached down for fallen water and client appeared to lose her balance fell over and hit rear of head on wall. patient seemed to respond to injury and assistance was called.
[2021-04-16 09:26] VITALS: BP 159/83; PULSE 91; RESP 18; O2SAT 98
--- NOTE | 2021-04-16 09:27 | PC.NURSE ---
pt's l pupil has a pear shape leaning to the right side and l pupil 2mm in size, md aware.
--- NOTE | 2021-04-16 09:29 | MHC.CM.ED ---
Patient remains in ER. Was in pod. Transferred to main ER after a fall. Work up pending. Continue to monitor for d/c needs.
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
--- NOTE | 2021-04-16 10:10 | PC.NURSE ---
pt's brother bertha raymond ([phone]) called [facility] ad was updaated.
[2021-04-16 10:39] LABS: Lithium 0.76 mmol/L (0.60-1.20)
[2021-04-16 10:55] VITALS: BP 138/72; PULSE 83; RESP 13; O2SAT 100
[2021-04-16 12:25] LABS: Basophils Percent Auto 0.3 % (0-2); Eosinophils Absolute Auto 0.2 X10*3/uL (0.0-0.4); Eosinophils Percent Auto 2.1 % (0-4); Hematocrit 45.9 % (37-47); Hemoglobin 14.6 g/dl (12.0-16.0); Imm Gran Abs Auto 0.04 X10*3/uL (0.00-0.03); Imm Gran Pct Auto 0.4 % (0.0-0.4); Lymphocytes Absolute Auto 5.9 X10*3/uL (1.2-4.9); Lymphocytes Percent Auto 62.6 % (20-40); MANUAL DIFF FLAG SCAN; Mean Corpuscular HGB Conc 31.8 g/dl (31.0-35.0); Mean Corpuscular Hemoglobin 30.2 pg (27.0-33.0); Mean Corpuscular Volume 94.8 fL (80-98); Mean Platelet Volume 12.6 fL (9.4-12.3); Monocytes Absolute Auto 0.6 X10*3/uL (0.1-1.2); Monocytes Percent Auto 6.3 % (2-11); Neutrophils Absolute Auto 2.7 X10*3/uL (2.0-8.3); Neutrophils Percent Auto 28.3 % (45-73); Platelet Count 237 X10*3/uL (160-400); Red Blood Count 4.84 X10*6/uL (4.20-5.50); Red Cell Distribution Width 13.8 % (11.0-16.0); SCAN SMEAR FLAG 1; White Blood Count 9.5 X10*3/uL (4.8-10.8)
[2021-04-16 12:39] LABS: Alanine Aminotransferase 9 U/L (0-31); Albumin Level 4.4 g/dL (3.5-5.0); Alkaline Phosphatase 49 U/L (39-117); Anion Gap 23 (12-20); Aspartate Amino Transferase 20 U/L (5-31); Bilirubin Direct 0.5 mg/dL (0.0-0.5); Bilirubin Total 1.5 mg/dL (0.0-1.0); Blood Urea Nitrogen 9 mg/dL (9-16); Calcium 10.2 mg/dL (8.4-10.2); Carbon Dioxide 20 mmol/L (22-29); Chloride 106 mmol/L (96-108); Estimated Glomerular Filt Rate 51; Glucose Random 116 mg/dL (60-115); Potassium 4.2 mmol/L (3.3-5.1); Sodium 145 mmol/L (135-145); Total Protein 7.1 g/dL (6.5-8.0)
[2021-04-16 13:09] LABS: SLIDE REVIEW VERIFIED
[2021-04-16] MEDS: LORazepam 2 MG/ML VIAL 1 MG IM (14:00)
--- NOTE | 2021-04-16 14:28 | PC.NURSE ---
liliane moseley) from the [facility] called [facility] and was updated on pt's status.
[2021-04-16 14:45] VITALS: BP 168/100; PULSE 101; RESP 14; TEMP 36.6; O2SAT 95
--- NOTE | 2021-04-16 14:59 | MHC.CM.ED ---
Copy of MLOST emailed from [facility] to T/W. Printed and put in chart.
--- NOTE | 2021-04-16 17:49 | MHC.CM.ED ---
Addendum entered by Charlene Horton 04/16/21 21:15: Correction:HCP/daughter Cherri Abdul [phone] Addendum entered by Charlene Horton 04/16/21 19:03: E-mail sent by Ania Hearn regarding MD conversations with brother, Sid and with CM to hospital administration. Message left with Terri Knight HCP to return call to discuss pt care. Original Note: CM met with Sid, pt brother, who is agreeable to psychiatric medications to control behaviors and is willing to consider ECT if offered to control behaviors if necessary. Sid does not want to treat pt if she develops a UTI or Pneumonia with antibiotics. Sid wants his sister kept comfortable, but he does not want to prolong her life. CM explained that [facility]ING MACHINE [employer]PER[employer] care is offered at the end of life, but that his sister is not at the end of life presently. Sid states he wants to work with hospital staff and is willing to sign any documents necessary. CM explained to Sid that I did not believe there was a document for him to sign that prohibits treatment for UTI or Pneumonia. At this point, the plan moving forward is to medicate as needed with psychiatric medications and transfer this??patient to [facility] at [facility] tomorrow when bed becomes available. Sid is agreeable and understands that pt will remain in the ED overnight. Dr. Jones is aware of the CM discussion and spoke to Sid regarding the above. Sid is adamant that he completed such a form for his mother. Sid is aware that hospital administration is aware of his concerns. CM contact card given. CM to follow for d/c needs.
[2021-04-16] MEDS: Divalproex Sodium 250 MG TABLET.DR PO (21:40)
[2021-04-16] MEDS: Divalproex Sodium 250 MG TABLET.DR 125 MG PO (21:46)
[2021-04-16] MEDS: Lithium Carbonate 300 MG TABLET 150 MG PO (21:47)
[2021-04-16] MEDS: Sennosides 8.6 MG TABLET PO (21:47)
--- NOTE | 2021-04-16 21:58 | MHC.CM.ED ---
CM spoke with Cherri Abdul, HCP and Daughter ([phone]), who tells CM that she and her family want the least amount of suffering for her mother. Cherri tells CM that she wants her mothers psych medications to continue in hopes of finding medication or medications that will decrease her mother's unmanageable behaviors and aggression so she can ideally return to the [facility]. Cherri is agreeable to pt being admitted to [facility] for medication management, as she feels her mother may be better in a quieter environment. Cherri is aware that admission to [facility] is the physicians/psychiatrist decision. Cherri is interested in exploring palliative care for her mother. Cherri states her mother is in end stage Alzheimer's and has had major declines in the past month. Cherri would like to be informed regarding her mother's care. CM to follow for d/c needs.
[2021-04-16 22:00] VITALS: BP 142/84; RESP 15; O2SAT 95
[2021-04-16] MEDS: Lithium Carbonate 300 MG CAPSULE PO (22:15)
[2021-04-16] MEDS: LORazepam 0.5 MG TABLET PO (22:15)
[2021-04-17] MEDS: LORazepam 2 MG/ML VIAL 0.5 MG IM (04:22)
--- NOTE | 2021-04-17 04:22 | PC.NURSE ---
Patient received 0.5 mg IM to enable patient to participate in her care plan.
[2021-04-17] MEDS: Divalproex Sodium 250 MG TABLET.DR PO ×2 (09:04→20:23)
[2021-04-17] MEDS: Lithium Carbonate 300 MG CAPSULE PO ×2 (09:04→20:22)
[2021-04-17] MEDS: polyethylene glycoL 3350 17 GM POWD.PACK PO (09:04)
[2021-04-17 09:06] VITALS: RESP 14
--- NOTE | 2021-04-17 09:06 | PC.NURSE ---
brother at bedside, pt took am meds with no issue. plan for [facility] today.
[2021-04-17] MEDS: OLANZapine 10 MG VIAL IM (12:40)
--- NOTE | 2021-04-17 12:55 | HO.PSYADMNOT ---
HPI Chief Complaint: PSYCHOSIS HPI Subjective Notes: Section 12B Healthcare Proxy: Yes Guardianship: No Medical Problems Affecting Mental Status: Yes (seizures) Narrative: The patient is a 61-year-old female, resident of an assisted living facility with a past history of seizure disorder, cognitive deterioration, referred from the [facility] for increased agitation and disorganized behavior. The patient was admitted in November to [facility] and later transferred to [facility] for nearly 3 months sayings her condition was deteriorated and her level agitation was worsen it in the last months. She was stabilized and later transferred to [facility] and she stayed there for over a month but she was referred to the emergency room due to unmanageable symptoms elicited by disorganized behavior, violence against caregivers and peers and inability to take care of herself. She was in the emergency room for several days but there were no beds available and finally she was admitted into this facility. During that intake, the patient was grossly agitated that she needed to be medicated IM with apex at 10 mg with limited improvement. We gather collateral information and her healthcare proxies will come tomorrow for a meeting. The patient does not have capacity to sign conditional voluntary paperwork and she was seen in the unit agitated and grossly disorganized, with poor ADL and knocking in all the doors. I signed a Section 12 B. Past Psychiatric History: Hx of being diagnosed with ADD -Recently discharged from [facility] after sustained admission (admitted 11/25/20-02/08/21) for concerns of worsening cognitive function/ decline, agitation, and delusional thinking. Per discharge summary, on admission Johanna was very confused, disoriented. Her daughter (Cherri) reported that the last several years she had noticed minor memory problems in her mom but earlier in the week there was a dramatic decline in her cognitive abilities, ?like night and day.? Sx included delusional thoughts, talking to the [place], seeing people, worsening memory.? Precipitating factors included that she had some new, abnormal signs on her EEG and her neurologist, Dr. Ortega Enriquez at [facility], added lamictal to her existing valproic acid (Depakote ER 500 mg QD and 250 mg QHS) on 11/13/20. Lamictal was discontinued and Johanna was brought to [facility] on 11/21-11/24/20 where she had an MRI, EEG, and lacosamide was initiated. She was also put on olanzapine 5 mg QHS for agitation and wandering with good effect. During the course of her hospitalization at [facility], she had a brief send out due to unwitnessed fall, sustained tibial fx. There was concern for overlying delirium due to fracture, pain. She had periods of mood lability, quick switches from euphoria to anger to tearfulness. She dad paranoid ideation towards staff, thought they were trying to hurt her. -Past med trials: During hospitalization at [facility], olanzapine was titrated off due to concerns of anticholinergic burden. Lacosamide 100 mg BID was also discontinued due to concerns for worsening behavioral sx. She was trialed on ativan 0.5 mg TID but this was discontinued due to concerns for disinhibition and continued as a PRN for agitation. Gabapentin was trialed at 400 mg TID but discontinued due to confusion, unclear benefit. She was trialed on risperidone 1.5 mg but discontinued due to lack of benefit, restlessness. She was trialed on seroquel 150 mg but discontinued due to similar reasons. She was then trialed on remeron 7.5 mg but discontinued quickly due to worsening sleep, activation. Ultimately, she was discharged on titration of depakote to DR formulation 500 mg BID and dronabinol 2.5 mg BID. She was sent to [facility] for assisted living/ memory care unit with VNA and PT/OT services. However, she eventually required 1:1 care at the facility due to worsening behaviors. [facility] VPA level of [address] 125 mg QHS and 250 mg BID. She was recently trialed on strattera 10 mg but per her prescriber, she got ?progressively worse? on this medication. Medical Evaluation Reviewed: Hospitalist Armen Pending [facility] Medical History TBI (traumatic brain injury) Family History: Unable to obtain by the patient. Her brother reported that their father had dementia. Social History: Living with her autistic son who is highly functional, she has adult children. The patient have neurocognitive symptoms issues and early 50s Substance History: . Denies Trauma History: Denies Diagnostics Vital Signs (24Hr): Vital Signs - 24 hr 04/16/21 14:45 04/16/21 22:00 04/17/21 09:06 Temperature 97.9 F Pulse Rate 101 H Respiratory Rate 14 15 14 Blood Pressure 168/100 H 142/84 H Pulse Oximetry 95 95 Body Mass Index 22.7 Labs Results: 04/16/21 09:05 04/16/21 09:05 Labs: Laboratory Results - last 48 hr 04/15/21 04/16/21 04/16/21 19:02 09:05 09:05 WBC 9.5 RBC 4.84 Hgb 14.6 Hct 45.9 MCV 94.8 D MCH 30.2 MCHC 31.8 RDW 13.8 Plt Count 237 D MPV 12.6 H Immature Gran % (Auto) 0.4 Neut % (Auto) 28.3 L Lymph % (Auto) 62.6 H [place] % (Auto) 6.3 Eos % (Auto) 2.1 Baso % (Auto) 0.3 Lymph # (Auto) 5.9 H [place] # (Auto) 0.6 Eos # (Auto) 0.2 Baso # (Auto) 0.0 Abs Immat Gran (auto) 0.04 H Absolute Neuts (auto) 2.7 Absolute Nucleated RBC 0.000 Nucleated RBC % (auto) 0.0 Smear Tech's Comments VERIFIED Sodium Potassium Chloride Carbon Dioxide Anion Gap BUN Creatinine Estim Creat Clear Calc Estimated GFR Random Glucose Calcium Total Bilirubin Direct Bilirubin AST ALT Alkaline Phosphatase Total Protein Albumin [place] Cancelled 0.76 04/16/21 09:05 WBC RBC Hgb Hct MCV MCH MCHC RDW Plt Count MPV Immature Gran % (Auto) Neut % (Auto) Lymph % (Auto) [place] % (Auto) Eos % (Auto) Baso % (Auto) Lymph # (Auto) [place] # (Auto) Eos # (Auto) Baso # (Auto) Abs Immat Gran (auto) Absolute Neuts (auto) Absolute Nucleated RBC Nucleated RBC % (auto) Smear Tech's Comments Sodium 145 Potassium 4.2 Chloride 106 Carbon Dioxide 20 L Anion Gap 23 H BUN 9 Creatinine 1.09 Estim Creat Clear Calc 52.0 Estimated GFR 51 Random Glucose 116 H Calcium 10.2 Total Bilirubin 1.5 H Direct Bilirubin 0.5 AST 20 ALT 9 Alkaline Phosphatase 49 Total Protein 7.1 Albumin 4.4 [place] Imaging Radiology Impressions: ITS Impressions Chest X-Ray 04/11/21 22:38 IMPRESSION: No acute intrathoracic disease Cervical Spine CT 04/16/21 09:27 IMPRESSION: No acute intracranial process seen. Right frontal parietal scalp air collection likely overlying laceration and contusion. Minimal soft tissue swelling. No calvarial fracture. Mild degenerative disc changes C5-C6 disc level with mild ventral and posterior spondylosis. No visible acute fracture or dislocation seen. Head CT 04/16/21 09:27 IMPRESSION: No acute intracranial process seen. Right frontal parietal scalp air collection likely overlying laceration and contusion. Minimal soft tissue swelling. No calvarial fracture. Mild degenerative disc changes C5-C6 disc level with mild ventral and posterior spondylosis. No visible acute fracture or dislocation seen. Wrist X-Ray 04/16/21 11:06 IMPRESSION: No fracture or dislocation seen. Head CT 04/16/21 13:34 IMPRESSION: No acute intracranial process seen. Meds/Allergies Meds Home Medications Acetaminophen (Acetaminophen 325 Mg Tablet) 650 mg PO Q6H PRN PRN Reason: Pain Last Admin: 04/15/21 13:56 Dose: 325 mg Documented by: Al Hydroxide/Mg Hydroxide (Magnesium Hydrox/Alum Hydrox 30 Ml Oral.Susp) 30 ml PO Q6H PRN PRN Reason: Heartburn/Nausea Divalproex Sodium (Divalproex Sodium 250 Mg Tablet.) 125 mg PO BEDTIME [facility] Last Admin: 04/17/21 20:23 Dose: 125 mg Documented by: Divalproex Sodium (Divalproex Sodium 250 Mg Tablet.) 250 mg PO BID [facility] Last Admin: 04/18/21 09:23 Dose: 250 mg Documented by: Lidocaine (Lidocaine 5 % Ointment 35 Gm) 1 appl TOPICAL BID PRN; Protocol PRN Reason: Pain [place] Carbonate ([place] Carbonate 300 Mg Capsule) 450 mg PO BID [facility] Magnesium Hydroxide (Milk Of Magnesia 30 Ml Oral.Susp) 30 ml PO DAILY PRN PRN Reason: Constipation Non-Formulary Medication (Dronabinol) 1 cap PO BID [facility] Olanzapine (Olanzapine 5 Mg Tablet) 5 mg PO TID PRN PRN Reason: agitation Last Admin: 04/18/21 09:24 Dose: 5 mg Documented by: Olanzapine (Olanzapine 2.5 Mg Tablet) 2.5 mg PO TID [facility] Polyethylene Glycol (Polyethylene Glycol 3350 17 Gm Powd.Pack) 17 gm PO DAILY [facility] Last Admin: 04/18/21 09:26 Dose: 17 gm Documented by: Senna (Sennosides 8.6 Mg Tablet) 8.6 mg PO BEDTIME VIKTORIYA Last Admin: 04/17/21 20:19 Dose: 8.6 mg Documented by: Trazodone HCl (Trazodone Hcl 50 Mg Tablet) 50 mg PO BEDTIME PRN PRN Reason: Insomnia Last Admin: 04/18/21 01:43 Dose: 50 mg Documented by: Allergies Allergies Allergy/AdvReac Type Severity Reaction Status Date / Time No Known Allergies Allergy Verified 04/11/21 20:47 Mental Status Exam Mental Status Exam Patient Appearance: Disheveled and Unkempt Patient Orientation: Person Level of Consciousness: Disoriented, Restless and Combative Patient Behavior: Aggressive and Restless Mood Description: Labile Affect Description: Constricted and Angry Patient Cognition Impaired: Yes Ability to Follow Directions: Poor Speech Pattern: Clear Hallucinations: None Delusions: Paranoid Ideation Thought Process: Slowed Thinking Thought Content: positive for Poverty of Content and positive for Thought Blocking Abnormal Motor Activity Signs and Symptoms: Restlessness Judgement: Poor Assessment & Plan Assessment & Plan (1) Seizure disorder: Status: Acute Code(s): G40.909 - Epilepsy, unspecified, not intractable, without status epilepticus (2) Major neurocognitive disorder as late effect of traumatic brain injury without behavioral disturbance: Status: Acute Code(s): S06.9X9S - Unspecified intracranial injury with loss of consciousness of unspecified duration, sequela; F02.80 - Dementia in other diseases classified elsewhere without behavioral disturbance (3) TBI (traumatic brain injury): Status: Acute Code(s): S06.9X9A - Unspecified intracranial injury with loss of consciousness of unspecified duration, initial encounter Assessment and Plan: The patient is a 61-year-old female with a long history of dementia vascular type, readmitted for aggressive behavior and very disorganized behavior. Plan 1. Start Zyprexa 2.5 mg p.o. t.i.d.. 2. Increase lithium up to 450 mg p.o. b.i.d.. 3. Family meeting as soon as possible. Reason for continued inpatient stay Substantial Risk for: harm to self, harm to others, inability to function, rapid decompensation and med/psych decompensation
--- NOTE | 2021-04-17 18:11 | P.CNNE_ITS ---
History of Present Illness Data of Consult Service Date: 04/17/21 Primary Care Provider: Dimitrios Munguia MD [facility] Reason for consult: Possible seizures, TBI This is a 61-year-old woman admitted from a care home where she resides because of traumatic brain injury. Limited cognitive abilities and possible seizures. She is on the divalproex twice a day, unknown dose, and appaarently may have had a seizure in the ER and fell and had a scalp laceration. However, the other version is that she dropped something and was getting out of her bed and fell. She is now admitted for agitation and psychosis to the psych [facility] and has been sedated with Zyprexa and is a relatively pleasant and cooperative but unable to give any meaningful history. Review of Systems Review of Systems: Yes Unobtainable due to mental status PMFSH Past Medical History Medical History (Updated 04/17/21 @ 18:13 by Sravan Najera MD) TBI (traumatic brain injury) Social History Social History Household Members: Other Housing: [facility] Do you presently have visiting nurse or other home services: No Unable to assess alcohol history related to: Unable to respond and Unknown Patient Tobacco Use Status: Never used Tobacco Use of substances other than those prescribed or required for medical reasons: Unable to respond Advance Directives: Yes Advance Directives Information Provided: No Advance Directives on File: Yes Healthcare Proxy: No Guardian: No Recently lost weight without trying: Unsure Nutrition Risks: No Nutritional Risk Patient : No : No service: No Sexual orientation: Straight/Heterosexual Meds Allergies Allergy/AdvReac Type Severity Reaction Status Date / Time No Known Allergies Allergy Verified 04/11/21 20:47 Active Medications: Current Medications Generic Name Dose Route Start Last Admin Trade Name Freq PRN Reason Stop Dose Admin Acetaminophen 650 mg 04/12/21 01:29 04/15/21 13:56 Acetaminophen 325 Mg Tablet PO 325 mg Q6H PRN Administration Pain Al Hydroxide/Mg Hydroxide 30 ml 04/17/21 11:35 Magnesium Hydrox/Alum Hydrox 30 Ml Oral.Susp PO Q6H PRN Heartburn/Nausea Divalproex Sodium 125 mg 04/12/21 21:00 04/16/21 21:46 Divalproex Sodium 250 Mg Tablet.Dr PO 125 mg BEDTIME VIKTORIYA Administration Divalproex Sodium 250 mg 04/12/21 09:00 04/17/21 09:04 Divalproex Sodium 250 Mg Tablet. PO 250 mg BID VIKTORIYA Administration Lidocaine 1 appl 04/12/21 01:29 Lidocaine 5 % Ointment 35 Gm TOPICAL BID PRN Pain Protocol [place] Carbonate 300 mg 04/13/21 21:00 04/17/21 09:04 [place] Carbonate 300 Mg Capsule PO 300 mg BID VIKTORIYA Administration [place] Carbonate 150 mg 04/15/21 21:00 04/16/21 21:47 [place] Carbonate 300 Mg Tablet PO 150 mg BEDTIME VIKTORIYA Administration Magnesium Hydroxide 30 ml 04/17/21 11:35 Milk Of Magnesia 30 Ml Oral.Susp PO DAILY PRN Constipation Non-Formulary Medication 1 cap 04/17/21 11:30 Dronabinol PO BID VIKTORIYA Olanzapine 5 mg 04/12/21 21:02 04/16/21 00:41 Olanzapine 5 Mg Tablet PO 5 mg TID PRN Administration agitation Polyethylene Glycol 17 gm 04/12/21 09:00 04/17/21 09:04 Polyethylene Glycol 3350 17 Gm Powd.Pack PO 17 gm DAILY VIKTORIYA Administration Senna 8.6 mg 04/12/21 21:00 04/16/21 21:47 Sennosides 8.6 Mg Tablet PO 8.6 mg BEDTIME VIKTORIYA Administration Trazodone HCl 50 mg 04/17/21 11:35 Trazodone Hcl 50 Mg Tablet PO BEDTIME PRN Insomnia Home Medications Medication Instructions Recorded Confirmed Last Taken Type acetaminophen 325 mg tablet 650 mg PO Q6H PRN 04/12/21 04/12/21 Unknown History (Tylenol) atomoxetine 10 mg capsule 10 mg PO DAILY 04/12/21 04/12/21 Unknown History divalproex 125 mg tablet,delayed 1 tab PO BEDTIME 04/12/21 04/12/21 Unknown History release divalproex 250 mg tablet,delayed 1 tab PO BID 04/12/21 04/12/21 Unknown History release dronabinol 2.5 mg capsule 1 cap PO BID 04/12/21 04/12/21 Unknown History lidocaine 5 % topical ointment 1 appl TOPICAL BID PRN 04/12/21 04/12/21 Unknown History lorazepam 0.5 mg tablet (Ativan) 0.5 mg PO BID PRN 04/12/21 04/12/21 Unknown History lorazepam 0.5 mg tablet (Ativan) 0.5 mg PO TID 04/12/21 04/12/21 Unknown History lorazepam 1 mg tablet (Ativan) 0.5 mg PO BID PRN 04/12/21 04/12/21 Unknown History polyethylene glycol 3350 17 17 g PO DAILY 04/12/21 04/12/21 Unknown History gram/dose oral powder (Miralax) sennosides 8.6 mg tablet (senna) 8.6 mg PO BEDTIME 04/12/21 04/12/21 Unknown History Physical Exam Vital Signs: Vital Signs: Last Vital Signs Temp 97.9 F 04/16/21 14:45 Pulse 101 H 04/16/21 14:45 Resp 14 04/17/21 09:06 BP 142/84 H 04/16/21 22:00 Pulse Ox 95 04/16/21 22:00 Body Mass Index 22.7 Neuro: Other: She is awake, smiling and pleasantly cooperative unable to provide any information. She will follow simple commands. Cranial nerves appear intact. She moves all 4 extremitiess with a nonfocal exam and her neck is supple. She has a scalp laceration. Results Labs CBC & Chem 7: 04/16/21 09:05 04/16/21 09:05 Assessment and Plan (1) Major neurocognitive disorder as late effect of traumatic brain injury without behavioral disturbance: Status: Acute (2) TBI (traumatic brain injury): Status: Acute CT sscan of the brain (3) Seizure disorder: Status: Acute Unable to obtain any information from the patient. There is some question of whether she has seizures. Recommend EEG when she is cooperative. Check valproic acid level. Patient is presenting with confusion, disorientation, combative behaviors, and is difficult to re-direct. Staff report she appears to have worsening behavi ors after initially responding to phenobarbital 7.5 mg QHS (helpful for about 2 hours). Recommend utilizing zyprexa, as per [facility] discharge this was helpful for behavioral control in the past. Plan: 1. start zyprexa 5 mg TID PRN 2. -Continue monitoring medically. Patient is currently medically cleared. -Patient cannot leave AGAINST MEDICAL ADVICE. -Care Team re-evaluation in the morning initial treatments ordered collateral history needed ? Procedures Date of Service Date of Service: 04/17/21
--- NOTE | 2021-04-17 18:21 | PC.NURSE ---
Pt given medication restraint at 1250 today, Zyprexa 10mg IM to left deltoid. Security was present to assist. Pt agitated for about 30-45 minutes afterwards, and then fell asleep.
[2021-04-17] MEDS: Sennosides 8.6 MG TABLET PO (20:19)
[2021-04-17] MEDS: Lithium Carbonate 300 MG TABLET 150 MG PO (20:22)
[2021-04-17] MEDS: Divalproex Sodium 250 MG TABLET.DR 125 MG PO (20:23)
[2021-04-17 20:39] VITALS: BP 119/87; PULSE 99; RESP 16; TEMP 36.1; O2SAT 99
[2021-04-18] MEDS: traZODone HCL 50 MG TABLET PO (01:43)
[2021-04-18] MEDS: OLANZapine 5 MG TABLET PO ×4 (01:44→20:32)
[2021-04-18 06:00] VITALS: BP 150/99; PULSE 92; RESP 18; TEMP 36.9; O2SAT 95
[2021-04-18] MEDS: Divalproex Sodium 250 MG TABLET.DR PO ×2 (09:23→20:28)
[2021-04-18] MEDS: Lithium Carbonate 300 MG CAPSULE PO (09:23)
[2021-04-18] MEDS: polyethylene glycoL 3350 17 GM POWD.PACK PO (09:26)
--- NOTE | 2021-04-18 12:00 | HO.PSYCHPN ---
Subjective Subjective Date of Service: 04/18/21 Reason For Visit: PSYCHOSIS Interim History: The nursing staff reported that the patient could not sleep last night even though that she was medicated with Zyprexa and trazodone. She remains grossly disorganized wandering in the unit, and she has tried to elope from the unit. The patient is still on one-to-one very confused. Review of Systems Acute medical concerns: No Medical Review of Systems: unchanged Mental Status Exam Mental Status Exam Patient Appearance: Disheveled and Unkempt Patient Orientation: Person Level of Consciousness: Disoriented and Restless Patient Behavior: Suspicious, Restless and Resistive to Care Mood Description: Fearful, Hostile, Anxious and Apprehensive Affect Description: Labile Patient Cognition Impaired: Yes Ability to Follow Directions: Poor Speech Pattern: Clear Hallucinations: None Delusions: Paranoid Ideation Thought Process: Illogical, Distracted and Confusion Thought Content: positive for Poverty of Content, positive for Loose Associations and positive for Thought Blocking Judgement: Poor Diagnostics Vital Signs (24Hr): Vital Signs - 24 hr 04/17/21 20:39 04/18/21 06:00 Temperature 97.0 F 98.5 F Pulse Rate 99 92 Respiratory Rate 16 18 Blood Pressure 119/87 150/99 H Pulse Oximetry 99 95 Body Mass Index 22.7 Labs Results: 04/16/21 09:05 04/16/21 09:05 Labs: Laboratory Results - last 48 hr 04/16/21 04/16/21 09:05 09:05 WBC 9.5 RBC 4.84 Hgb 14.6 Hct 45.9 MCV 94.8 D MCH 30.2 MCHC 31.8 RDW 13.8 Plt Count 237 D MPV 12.6 H Immature Gran % (Auto) 0.4 Neut % (Auto) 28.3 L Lymph % (Auto) 62.6 H Greene % (Auto) 6.3 Eos % (Auto) 2.1 Baso % (Auto) 0.3 Lymph # (Auto) 5.9 H Greene # (Auto) 0.6 Eos # (Auto) 0.2 Baso # (Auto) 0.0 Abs Immat Gran (auto) 0.04 H Absolute Neuts (auto) 2.7 Absolute Nucleated RBC 0.000 Nucleated RBC % (auto) 0.0 Smear Tech's Comments VERIFIED Sodium 145 Potassium 4.2 Chloride 106 Carbon Dioxide 20 L Anion Gap 23 H BUN 9 Creatinine 1.09 Estim Creat Clear Calc 52.0 Estimated GFR 51 Random Glucose 116 H Calcium 10.2 Total Bilirubin 1.5 H Direct Bilirubin 0.5 AST 20 ALT 9 Alkaline Phosphatase 49 Total Protein 7.1 Albumin 4.4 Imaging Radiology Impressions: ITS Impressions Chest X-Ray 04/11/21 22:38 IMPRESSION: No acute intrathoracic disease Cervical Spine CT 04/16/21 09:27 IMPRESSION: No acute intracranial process seen. Right frontal parietal scalp air collection likely overlying laceration and contusion. Minimal soft tissue swelling. No calvarial fracture. Mild degenerative disc changes C5-C6 disc level with mild ventral and posterior spondylosis. No visible acute fracture or dislocation seen. Head CT 04/16/21 09:27 IMPRESSION: No acute intracranial process seen. Right frontal parietal scalp air collection likely overlying laceration and contusion. Minimal soft tissue swelling. No calvarial fracture. Mild degenerative disc changes C5-C6 disc level with mild ventral and posterior spondylosis. No visible acute fracture or dislocation seen. Wrist X-Ray 04/16/21 11:06 IMPRESSION: No fracture or dislocation seen. Head CT 04/16/21 13:34 IMPRESSION: No acute intracranial process seen. Medications Medications Current Medications Generic Name Dose Route Start Last Admin Trade Name Freq PRN Reason Stop Dose Admin Acetaminophen 650 mg 04/12/21 01:29 04/15/21 13:56 Acetaminophen 325 Mg Tablet PO 325 mg Q6H PRN Administration Pain Al Hydroxide/Mg Hydroxide 30 ml 04/17/21 11:35 Magnesium Hydrox/Alum Hydrox 30 Ml Oral.Susp PO Q6H PRN Heartburn/Nausea Divalproex Sodium 125 mg 04/12/21 21:00 04/17/21 20:23 Divalproex Sodium 250 Mg Tablet. PO 125 mg BEDTIME VIKTORIYA Administration Divalproex Sodium 250 mg 04/12/21 09:00 04/18/21 09:23 Divalproex Sodium 250 Mg Tablet. PO 250 mg BID VIKTORIYA Administration Lidocaine 1 appl 04/12/21 01:29 Lidocaine 5 % Ointment 35 Gm TOPICAL BID PRN Pain Protocol Draper Carbonate 300 mg 04/13/21 21:00 04/18/21 09:23 Draper Carbonate 300 Mg Capsule PO 300 mg BID VIKTORIYA Administration Draper Carbonate 150 mg 04/15/21 21:00 04/17/21 20:22 Draper Carbonate 300 Mg Tablet PO 150 mg BEDTIME VIKTORIYA Administration Magnesium Hydroxide 30 ml 04/17/21 11:35 Milk Of Magnesia 30 Ml Oral.Susp PO DAILY PRN Constipation Non-Formulary Medication 1 cap 04/17/21 11:30 Dronabinol PO BID VIKTORIYA Olanzapine 5 mg 04/12/21 21:02 04/18/21 09:24 Olanzapine 5 Mg Tablet PO 5 mg TID PRN Administration agitation Polyethylene Glycol 17 gm 04/12/21 09:00 04/18/21 09:26 Polyethylene Glycol 3350 17 Gm Powd.Pack PO 17 gm DAILY VIKTORIYA Administration Senna 8.6 mg 04/12/21 21:00 04/17/21 20:19 Sennosides 8.6 Mg Tablet PO 8.6 mg BEDTIME VIKTORIYA Administration Trazodone HCl 50 mg 04/17/21 11:35 04/18/21 01:43 Trazodone Hcl 50 Mg Tablet PO 50 mg BEDTIME PRN Administration Insomnia Allergies Allergies Allergy/AdvReac Type Severity Reaction Status Date / Time No Known Allergies Allergy Verified 04/11/21 20:47 Assessment & Plan Assessment & Plan (1) Major neurocognitive disorder as late effect of traumatic brain injury without behavioral disturbance: Status: Acute Code(s): S06.9X9S - Unspecified intracranial injury with loss of consciousness of unspecified duration, sequela; F02.80 - Dementia in other diseases classified elsewhere without behavioral disturbance (2) TBI (traumatic brain injury): Status: Acute Code(s): S06.9X9A - Unspecified intracranial injury with loss of consciousness of unspecified duration, initial encounter Assessment and Plan: CT sscan of the brain (3) Seizure disorder: Status: Acute Code(s): G40.909 - Epilepsy, unspecified, not intractable, without status epilepticus Assessment and Plan: Unable to obtain any information from the patient. There is some question of whether she has seizures. Recommend EEG when she is cooperative. Check valproic acid level. Assessment and Plan: Patient is presenting with confusion, disorientation, combative behaviors, and is difficult to re-direct. Staff report she appears to have worsening behaviors after initially responding to phenobarbital 7.5 mg QHS (helpful for about 2 hours). Recommend utilizing zyprexa, as per [facility] discharge this was helpful for behavioral control in the past. Plan: 1. start zyprexa 5 mg TID PRN 2. -Continue monitoring medically. Patient is currently medically cleared. -Patient cannot leave AGAINST MEDICAL ADVICE. -Care Team re-evaluation in the morning initial treatments ordered collateral history needed 3. Start Zyprexa 2.5 mg p.o. t.i.d. scheduled. 4. Increase lithium up to 400 mg p.o. b.i.d.. 5. Family meeting today at 12:13 ? Greater than 50% of the session was spent on counseling and/or coordination of care Reason for contiued inpatient stay Substantial Risk for: harm to self, harm to others and inability to function
[2021-04-18 18:00] VITALS: BP 151/65; PULSE 79; RESP 20; TEMP 36.4; O2SAT 99
[2021-04-18] MEDS: Divalproex Sodium 250 MG TABLET.DR 125 MG PO (20:29)
[2021-04-18] MEDS: Sennosides 8.6 MG TABLET PO (20:30)
[2021-04-18] MEDS: traZODone HCL 100 MG TABLET PO (21:26)
--- NOTE | 2021-04-19 | ECG_ITS ---
Test Reason : SYNCOPE Blood Pressure : / mmHG Vent. Rate : 067 BPM Atrial Rate : 067 BPM P-R Int : 104 ms QRS Dur : 072 ms QT Int : 438 ms P-R-T Axes : -13 -21 174 degrees QTc Int : 462 ms Sinus rhythm with short NE Minimal voltage criteria for LVH, may be normal variant ( R in aVL ) Nonspecific T wave abnormality Abnormal ECG When compared with ECG of 11-APR-2021 22:24, NE interval has decreased Nonspecific T wave abnormality, worse in Inferior leads Nonspecific T wave abnormality, worse in Anterolateral leads Referred By: Pedro Pablo Torres Electronically Signed By:KEIRY MCKINNON
--- NOTE | 2021-04-19 05:14 | P.EN_ITS ---
Event Note Date of Service: 04/19/21 Event Note: Seizure: BINDING CEMENTER FRENCH CORD was called neural 5:00 a.m. mentioned that patient had a seizure episode. As reported by the nurse and 1 on 1 observation staff-patient wandered around the hallway came back to the bed; subsequently she stood up and wanted to go to the bathroom; when she stood up he suddenly felt dizzy lightheaded and tried to hold on to something and subsequently fell down on the floor, hitting her head; and then she had a seizure with whole body shaking and fainted followed by noted to have urinary, stool incontinence and drooling from the mouth; I saw the patient patient is already on the floor; drowsy lethargic-postictal. Patient's pupils noted to be asymmetric with left pupil bigger and open into the medial side of the sclera-patient's RN mentioned that that is her baseline from prior TBI. Patient sent for stat CT head and CT C-spine; and requested transfer to the medical floors on tele bed for further management. Brief history patient has prior history of seizures and on Depakote. Patient currently presented to the hospital after a fall with head strike and sutures on the scalp and admitted to the [facility] psych unit.
[2021-04-19 05:46] LABS: MANUAL DIFF FLAG NO
[2021-04-19 05:51] LABS: Basophils Percent Auto 0.4 % (0-2); Eosinophils Absolute Auto 0.1 X10*3/uL (0.0-0.4); Eosinophils Percent Auto 1.5 % (0-4); Hematocrit 35.6 % (37-47); Hemoglobin 11.7 g/dl (12.0-16.0); Imm Gran Abs Auto 0.01 X10*3/uL (0.00-0.03); Imm Gran Pct Auto 0.2 % (0.0-0.4); Lymphocytes Absolute Auto 1.6 X10*3/uL (1.2-4.9); Lymphocytes Percent Auto 33.8 % (20-40); Mean Corpuscular HGB Conc 32.9 g/dl (31.0-35.0); Mean Corpuscular Hemoglobin 29.8 pg (27.0-33.0); Mean Corpuscular Volume 90.6 fL (80-98); Mean Platelet Volume 12.4 fL (9.4-12.3); Monocytes Absolute Auto 0.4 X10*3/uL (0.1-1.2); Neutrophils Absolute Auto 2.6 X10*3/uL (2.0-8.3); Neutrophils Percent Auto 55.1 % (45-73); Platelet Count 152 X10*3/uL (160-400); Red Blood Count 3.93 X10*6/uL (4.20-5.50); Red Cell Distribution Width 13.3 % (11.0-16.0); White Blood Count 4.7 X10*3/uL (4.8-10.8)
--- NOTE | 2021-04-19 05:57 | PC.NURSE ---
Patient walking with one to one at 0430 in [place] went into another patients room, Patient escorted back to her room to bathroom to void. Patient disoriented and was standing with her one to one staff and started to seize and hit her head had tonic clonic seizure for 30 seconds and was incontinent of urine. BP 130/78. MAINTENANCE PERSON called neck collar placed on patient and pt transferred to CT scan. Text to MD for notification and to discharge pt to [facility] [place].
[2021-04-19 06:10] VITALS: BP 133/71
[2021-04-19 06:15] LABS: Lactic Acid 3.7 mmol/L (0.5-2.0)
[2021-04-19 06:19] LABS: Troponin-I High Sensitivity 4.3 ng/L (<3.5-17.0)
[2021-04-19 06:24] LABS: Anion Gap 14 (12-20); Blood Urea Nitrogen 20 mg/dL (9-16); Calcium 9.5 mg/dL (8.4-10.2); Carbon Dioxide 25 mmol/L (22-29); Chloride 102 mmol/L (96-108); Creatinine Clr Calc Pharmacy 42.3; Estimated Glomerular Filt Rate 40; Glucose Random 108 mg/dL (60-115); Potassium 4.7 mmol/L (3.3-5.1); Sodium 136 mmol/L (135-145)
[2021-04-19 07:42] LABS: Reflex Lactate? Lactic Acid Added
[2021-04-19 09:06] LABS: ~Lactic Acid-LAB USE ONLY 0.9 mmol/L (0.5-2.0)
--- NOTE | 2021-04-19 09:52 | P.DS_ITS ---
DS: Providers Provider Date of Service: 04/19/21 Date of admission: 04/17/21 11:24 Date of discharge: 04/19/21 Primary care physician: Dimitrios Munguia MD Consults: 04/14/21 21:25 Consult to Neurology Stat Consulting Provider: Sravan Najera Reason for consultation: AMS 04/17/21 15:37 Consult to Neurology Routine Consulting Provider: [facility] Reason for consultation: seizure disorder, very unusual dementia Has provider been notified: No Attending physician on discharge: Graeme Ly DS: Diagnosis Discharge Diagnosis (1) Subdural hematoma: Status: Acute (2) Major neurocognitive disorder as late effect of traumatic brain injury without behavioral disturbance: Status: Acute (3) Seizure disorder: Status: Acute (4) TBI (traumatic brain injury): Status: Acute DS: Medications Discharge Medications Home Medications: Home Medications Medication Instructions Recorded Confirmed divalproex 125 mg tablet,delayed 1 tab PO BEDTIME 04/12/21 04/12/21 release divalproex 250 mg tablet,delayed 1 tab PO BID 04/12/21 04/12/21 release lidocaine 5 % topical ointment 1 appl TOPICAL BID PRN 04/12/21 04/12/21 Previous Rx's Medication Instructions Recorded divalproex 250 mg tablet,delayed 250 mg PO BID 10 Days #20 tab 04/19/21 release lithium carbonate 300 mg tablet 450 mg PO BID 10 Days #30 tab 04/19/21 olanzapine 5 mg tablet 5 mg PO TID PRN 10 Days tab 04/19/21 Mental Status Exam Mental Status Exam Narrative: The patient was on medical grounds, she was unconscious, sedated. Thought process and thought content unable to assess due to change in mental status. Insight judgment impulse control unable to assess Data Data Completed and Pending Completed studies during hospitalization [Text1]: 04/13/21 04/13/21 04/13/21 10:26 10:28 10:28 WBC RBC Hgb Hct MCV MCH MCHC RDW Plt Count MPV Immature Gran % (Auto) Neut % (Auto) Lymph % (Auto) [place] % (Auto) Eos % (Auto) Baso % (Auto) Lymph # (Auto) [place] # (Auto) Eos # (Auto) Baso # (Auto) Abs Immat Gran (auto) Absolute Neuts (auto) Absolute Nucleated RBC Nucleated RBC % (auto) Smear Tech's Comments Sodium Potassium Chloride Carbon Dioxide Anion Gap BUN Creatinine Estim Creat Clear Calc Estimated GFR POC Glucose 97 Random Glucose Lactic Acid Lactic Acid Fup @ 2Hr Calcium Total Bilirubin Direct Bilirubin AST ALT Alkaline Phosphatase Ammonia 39 Total Creatine Kinase Troponin I High Sens Total Protein Albumin Valproic Acid 79.0 [place] 04/13/21 04/15/21 04/16/21 15:35 19:02 09:05 WBC RBC Hgb Hct MCV MCH MCHC RDW Plt Count MPV Immature Gran % (Auto) Neut % (Auto) Lymph % (Auto) [place] % (Auto) Eos % (Auto) Baso % (Auto) Lymph # (Auto) [place] # (Auto) Eos # (Auto) Baso # (Auto) Abs Immat Gran (auto) Absolute Neuts (auto) Absolute Nucleated RBC Nucleated RBC % (auto) Smear Tech's Comments Sodium Potassium Chloride Carbon Dioxide Anion Gap BUN Creatinine Estim Creat Clear Calc Estimated GFR POC Glucose 134 H Random Glucose Lactic Acid Lactic Acid Fup @ 2Hr Calcium Total Bilirubin Direct Bilirubin AST ALT Alkaline Phosphatase Ammonia Total Creatine Kinase Troponin I High Sens Total Protein Albumin Valproic Acid [place] Cancelled 0.76 04/16/21 04/16/21 04/19/21 09:05 09:05 05:35 WBC 9.5 4.7 L RBC 4.84 3.93 L Hgb 14.6 11.7 L Hct 45.9 35.6 L D MCV 94.8 D 90.6 MCH 30.2 29.8 MCHC 31.8 32.9 RDW 13.8 13.3 Plt Count 237 D 152 L D MPV 12.6 H 12.4 H Immature Gran % (Auto) 0.4 0.2 Neut % (Auto) 28.3 L 55.1 Lymph % (Auto) 62.6 H 33.8 [place] % (Auto) 6.3 9.0 Eos % (Auto) 2.1 1.5 Baso % (Auto) 0.3 0.4 Lymph # (Auto) 5.9 H 1.6 [place] # (Auto) 0.6 0.4 Eos # (Auto) 0.2 0.1 Baso # (Auto) 0.0 0.0 Abs Immat Gran (auto) 0.04 H 0.01 Absolute Neuts (auto) 2.7 2.6 Absolute Nucleated RBC 0.000 0.000 Nucleated RBC % (auto) 0.0 0.0 Smear Tech's Comments VERIFIED Sodium 145 Potassium 4.2 Chloride 106 Carbon Dioxide 20 L Anion Gap 23 H BUN 9 Creatinine 1.09 Estim Creat Clear Calc 52.0 Estimated GFR 51 POC Glucose Random Glucose 116 H Lactic Acid Lactic Acid Fup @ 2Hr Calcium 10.2 Total Bilirubin 1.5 H Direct Bilirubin 0.5 AST 20 ALT 9 Alkaline Phosphatase 49 Ammonia Total Creatine Kinase Troponin I High Sens Total Protein 7.1 Albumin 4.4 Valproic Acid [place] 04/19/21 04/19/21 04/19/21 05:35 05:35 05:35 WBC RBC Hgb Hct MCV MCH MCHC RDW Plt Count MPV Immature Gran % (Auto) Neut % (Auto) Lymph % (Auto) [place] % (Auto) Eos % (Auto) Baso % (Auto) Lymph # (Auto) [place] # (Auto) Eos # (Auto) Baso # (Auto) Abs Immat Gran (auto) Absolute Neuts (auto) Absolute Nucleated RBC Nucleated RBC % (auto) Smear Tech's Comments Sodium 136 Potassium 4.7 Chloride 102 Carbon Dioxide 25 Anion Gap 14 BUN 20 H D Creatinine 1.34 Estim Creat Clear Calc 42.3 Estimated GFR 40 POC Glucose Random Glucose 108 Lactic Acid 3.7 H* Lactic Acid Fup @ 2Hr Calcium 9.5 D Total Bilirubin Direct Bilirubin AST ALT Alkaline Phosphatase Ammonia Total Creatine Kinase 128 Troponin I High Sens 4.3 Total Protein Albumin Valproic Acid [place] 04/19/21 08:34 WBC RBC Hgb Hct MCV MCH MCHC RDW Plt Count MPV Immature Gran % (Auto) Neut % (Auto) Lymph % (Auto) [place] % (Auto) Eos % (Auto) Baso % (Auto) Lymph # (Auto) [place] # (Auto) Eos # (Auto) Baso # (Auto) Abs Immat Gran (auto) Absolute Neuts (auto) Absolute Nucleated RBC Nucleated RBC % (auto) Smear Tech's Comments Sodium Potassium Chloride Carbon Dioxide Anion Gap BUN Creatinine Estim Creat Clear Calc Estimated GFR POC Glucose Random Glucose Lactic Acid Lactic Acid Fup @ 2Hr 0.9 Calcium Total Bilirubin Direct Bilirubin AST ALT Alkaline Phosphatase [place] Total Creatine Kinase Troponin I High Sens Total Protein Albumin Valproic Acid [place] Imaging Diagnostic Imaging Impressions Chest X-Ray 04/11/21 22:38 IMPRESSION: No acute intrathoracic disease Cervical Spine CT 04/16/21 09:27 IMPRESSION: No acute intracranial process seen. Right frontal parietal scalp air collection likely overlying laceration and contusion. Minimal soft tissue swelling. No calvarial fracture. Mild degenerative disc changes C5-C6 disc level with mild ventral and posterior spondylosis. No visible acute fracture or dislocation seen. Head CT 04/16/21 09:27 IMPRESSION: No acute intracranial process seen. Right frontal parietal scalp air collection likely overlying laceration and contusion. Minimal soft tissue swelling. No calvarial fracture. Mild degenerative disc changes C5-C6 disc level with mild ventral and posterior spondylosis. No visible acute fracture or dislocation seen. Wrist X-Ray 04/16/21 11:06 IMPRESSION: No fracture or dislocation seen. Head CT 04/16/21 13:34 IMPRESSION: No acute intracranial process seen. Cervical Spine CT 04/19/21 05:23 IMPRESSION: 1. Small focus of subdural hematoma adjacent to the lateral right frontal lobe. 2. Mild lateral left scalp edema. Posterior parietal skin marylu. 3. No acute findings identified in the cervical spine. This critical result was discussed with Dr. Torres on 04/19/2021 5:52 AM, and it was ascertained that the content and urgency of the report was understood at the time of direct communication. Head CT 04/19/21 05:23 IMPRESSION: 1. Small focus of subdural hematoma adjacent to the lateral right frontal lobe. 2. Mild lateral left scalp edema. Posterior parietal skin marylu. 3. No acute findings identified in the cervical spine. This critical result was discussed with Dr. Torres on 04/19/2021 5:52 AM, and it was ascertained that the content and urgency of the report was understood at the time of direct communication. Chest X-Ray 04/19/21 07:50 IMPRESSION: Unremarkable chest exam. DS: Summary Hospital Course Hospital Course: Please see admission note for more details. Yesterday, we had a family meeting with her healthcare proxy (daughter and sibling) and the family reported that the patient's anus her care proxy with the wishes of being DNR DNI if her psychiatric condition worsened and her condition was very impaired. Yesterday, the patient was disorganized and pleasant in the community, she was on one-to-one observation for safety. To the in the facilities maintenance supervisor, the patient had a seizure, she fell and hit her head and had a subdural hematoma with change of her mental status so she was rushed out of the unit to the medical floor. The discharge summary was dictated since the patient is not under our current EMR Time spent discussing smoking cessation with patient: 3 to 10 minutes Status at Discharge Cognitive/behavioral status at discharge: Unconscious Overall status at discharge: other (The patient is medically compromised) Time Spent with Patient Time attestation: Total time spent providing and/or coordinating discharge services: Time spent: Less than 30 minutes Discharge Plan Discharge Patient Disposition: [facility] Discharge Diagnosis: Seizure. Hx fall. Neurocognitive disorder Referrals: Dimitrios Munguia MD [Primary Care Provider] - 1 Week Discharge Medications: New divalproex 250 mg Tablet,Delayed Release (Dr/Ec) 250 mg PO BID 10 Days Qty: 20 RF: 0 olanzapine 5 mg Tablet 5 mg PO TID PRN (Reason: agitation) 10 Days RF: 0 lithium carbonate 300 mg Tablet 450 mg PO BID 10 Days Qty: 30 RF: 0 Continued divalproex 250 mg tablet,delayed release (DR/EC) 1 tab PO BID RF: 0 divalproex 125 mg tablet,delayed release (DR/EC) 1 tab PO BEDTIME RF: 0 lidocaine 5 % ointment 1 appl topical BID PRN (Reason: Pain) RF: 0 Discontinued lorazepam [Ativan] 0.5 mg Tablet 0.5 mg PO TID RF: 0 lorazepam [Ativan] 0.5 mg Tablet 0.5 mg PO BID PRN (Reason: Anxiety) RF: 0 lorazepam [Ativan] 1 mg Tablet 0.5 mg PO BID PRN (Reason: Seizures) RF: 0 atomoxetine 10 mg Capsule 10 mg PO DAILY RF: 0 Discharge Orders: Discharge Order (Routine); Ordered 04/19/21 Ordered By: Rosas Lopes Diet: regular diet Activity on Discharge: As tolerated Stand Alone Forms: Patient Portal Discharge page Care Plan Goals: Transfer to [facility] [place] after fall Health Concerns: Fall Dementia Plan of Treatment: Transfer to [facility] [place] Assessment: Evaluate TBI after fall Patient Instructions: Conduct Disorder (ED) Discharge Date/Time: 04/19/21 06:35
== END 2021-04-19 06:35 | disposition short-term general hospital (02) | DRG 55 ==
LOC: HO.ED 04-17 11:25 → HO.PGERI 04-17 11:35 → HO.IMC 04-19 05:56 → HO.PGERI 04-19 07:13
PROVIDERS: Hospitalist; Internal Medicine; Admitting Provider Psychiatry & Neurology Psychiatry; Emergency Provider Emergency Medicine; PCP Internal Medicine; Visit Provider Psychiatry & Neurology Psychiatry
DX: S06.5X9A Traumatic subdural hemorrhage with loss of consciousness of unspecified duration, initial encounter (principal); F03.91 Unspecified dementia, unspecified severity, with behavioral disturbance; G40.909 Epilepsy, unspecified, not intractable, without status epilepticus; S01.01XA Laceration without foreign body of scalp, initial encounter; W18.30XA Fall on same level, unspecified, initial encounter; Y93.9 Activity, unspecified; Y92.230 Patient room in hospital as the place of occurrence of the external cause; Z87.820 Personal history of traumatic brain injury; Z20.822 Contact with and (suspected) exposure to COVID-19; Z79.899 Other long term (current) drug therapy
CPT/HCPCS: 36415; 70450; 70551; 71045; 72125; 73100; 80048; 80053; 80076; 80164; 80178; 81001; 81003; 82140; 82550; 82947; 83605; 84484; 85025; 87635; 93005; 96361; 96372; 96374; 99285; J0515; J2060; J2270

== ENCOUNTER 2021-04-19 06:45 | Inpatient (IN) | payer BC, SELFPAY ==
--- NOTE | ~2021-04-19 | CT_ITS ---
EXAMINATION: CT HEAD WITHOUT CONTRAST CLINICAL INFORMATION: Follow-up SDH. COMPARISON: Head CT performed earlier today. TECHNIQUE: Contiguous axial imaging was performed from the skull base to vertex without intravenous administration of contrast. This CT examination was performed using dose optimization techniques as appropriate, variously including the following: *Automated exposure control *Adjustment of mA and/or kV according to patient size (this includes techniques or standardized protocols for targeted exams where dose is matched to indication/reason for exam; i.e. extremities or head) *Use of iterative reconstruction technique DLP: 711 mGy-cm. FINDINGS: A small predominantly low attenuating subdural hematoma is seen along the right cerebral convexity. A small hyperdense component is unchanged from prior. No midline shift is seen. No new areas of hemorrhage. The ventricles are stable in size without hydrocephalus. There is no evidence of acute infarction. The calvarium is intact. The extracranial structures are within normal limits. Small amount of stranding is seen at the high right parietal scalp with skin marylu in place. CT/CT head/brain wo con IMPRESSION: Stable exam. Stable small right-sided low attenuating subdural hematoma with small hyperdense component. No significant mass effect.
--- NOTE | 2021-04-19 06:54 | P.HPHOSP_ITS ---
History of Present Illness Date of Service: 04/19/21 Chief Complaint: Seizure 61-year-old female with a past medical history of dementia, traumatic brain injury, history of seizures presented to the hospital after a fall; subsequently admitted to the [facility] psych unit. On 04/19/2021 around 5:00 a.m. STOPPERER ASSEMBLER was called in because patient had a seizure and fall; the follow-up CT head showed small subdural hematoma. Subsequently transferred to the medical floors for further management. Patient had a generalized tonic-clonic seizure; had drooling from his mouth; also noted stool and urinary incontinence. Patient was postictal and drowsy. Gradually becoming more alert. Spoke to the patient's daughter Cherri who is the healthcare proxy who mentioned the does not want any aggressive intervention as patient was willing to keep her comfortable. Review of the system is limited as the patient is drowsy. [facility] Medical History TBI (traumatic brain injury) Social History Household Members: Other Housing: Shelter Do you presently have visiting nurse or other home services: No Unable to assess alcohol history related to: Unable to respond and Unknown Patient Tobacco Use Status: Never used Tobacco Advance Directives: No Advance Directives Information Provided: No service: No Sexual orientation: Straight/Heterosexual Meds Allergies Allergy/AdvReac Type Severity Reaction Status Date / Time No Known Allergies Allergy Verified 04/11/21 20:47 Active Medications: Current Medications Generic Name Dose Route Start Last Admin Trade Name Freq PRN Reason Stop Dose Admin Acetaminophen 650 mg 04/19/21 06:51 Acetaminophen Supp 650 Mg Supp.Rect FL Q6H PRN Pain, Mild (Pain Scale 1-3) Dextrose/Sodium Chloride 1,000 mls @ 50 mls/hr 04/19/21 07:00 D51/2ns IVCONT .Q20H VIKTORIYA Sodium Chloride 3 ml 04/19/21 08:00 0.9 % Sodium Chloride Flush 3 Ml Syringe IVFLUSH QSHIFT [facility] Home Medications Medication Instructions Recorded Confirmed Last Taken Type acetaminophen 325 mg tablet 650 mg PO Q6H PRN 04/12/21 04/12/21 Unknown History (Tylenol) divalproex 125 mg tablet,delayed 1 tab PO BEDTIME 04/12/21 04/12/21 Unknown History release divalproex 250 mg tablet,delayed 1 tab PO BID 04/12/21 04/12/21 Unknown History release dronabinol 2.5 mg capsule 1 cap PO BID 04/12/21 04/12/21 Unknown History lidocaine 5 % topical ointment 1 appl TOPICAL BID PRN 04/12/21 04/12/21 Unknown History polyethylene glycol 3350 17 17 g PO DAILY 04/12/21 04/12/21 Unknown History gram/dose oral powder (Miralax) sennosides 8.6 mg tablet (senna) 8.6 mg PO BEDTIME 04/12/21 04/12/21 Unknown History Physical Exam Vital Signs and Narrative: Gen: Appears be in no acute distress HEENT: NCAT, Moist mucosa. Pupils are asymmetric-reportedly chronic. Pulmonary: Vesicular breath sounds, fair air entry CVS: Normal S1-S2 Abdomen: BS+, Soft, Nontender Extremities: Warm well perfused Neuro: Patient was in lethargic; postictal; gradually becoming more alert; Assessment and Plan (1) Seizure disorder: Status: Acute (2) Major neurocognitive disorder as late effect of traumatic brain injury without behavioral disturbance: Status: Acute (3) Subdural hematoma: Status: Acute (4) Fall: Status: Acute 61-year-old female with a past medical history of dementia, TBI, seizure disorder, presented to the hospital after a fall and subsequently attended to the surgery psych unit. Patient transferred to [address] today after a seizure and fall. Seizure episode: Patient was on Depakote at baseline. Patient still had another episode of seizure this morning. Tonic-clonic, generalized. Seizure precautions Aspiration precautions Neurology consult. Will hold the p.o. Depakote. Will keep the patient on valproic acid 250 mg IV t.i.d.. History of bipolar/dementia/history of TBI: Continue home lithium and tolerate d. Subdural hematoma: Patient noted to have 2 mm subdural hematoma on the CT head which is new from the CT scan from 04/16. Discussed with at [facility] who accepted the patient. Spoke to the patient's healthcare proxy line who mentioned that patient which showed to have no aggressive interventions and wanted to keep her comfortable if clinically deteriorates. Willing to observe the patient as DNR DNI and if the patient is not improving clinically inclined towards comfort measures only. Patient's healthcare proxy denied transfer to the [facility]. Patient be monitored on telemetry. Supportive care. Lactic acidosis: Likely in the setting of seizure episode. Supportive care. Code status: DNR/DNI Quality Stroke Does the patient have a stroke diagnosis?: No VTE Prior VTE?: No VTE Risk Level:: Medical - moderate - high VTE Device Contraindication: N/A - Device Ordered VTE Drug Contraindication: Treatment Not Indicated
[2021-04-19 07:23] VITALS: BP 130/78; PULSE 73; RESP 20; TEMP 36.6; O2SAT 100
[2021-04-19] MEDS: 0.9 % Sodium Chloride Flush 3 ML SYRINGE IVFLUSH ×3 (09:08→19:59)
[2021-04-19] MEDS: Valproic Acid (as Sodium Salt) 250 MG in Dextrose 5 % 50 ML 52.5 MG IV ×2 (09:08→16:36)
--- NOTE | 2021-04-19 09:10 | MHC.CM.PN ---
CM met with Patient and Daughter/HCP/Cherri @ [phone] at bedside. Patient originally lived alone in a condo in [place]. Patient has been at [facility] in [place], on a Memory Care Unit. From the [facility], Patient was admitted to [facility] Psych Unit and the goal is for Patient to return to when medically cleared for dc. Patient presently has a 1:1 Sitter. Patient is functionally independent and her PCP is from [facility]. [facility] has initiated and will follow for dc planning.
--- NOTE | 2021-04-19 09:25 | PM.PSYDC ---
DS: Providers Provider Date of Service: 04/19/21 Date of admission: 04/19/21 06:45 Date of discharge: 04/19/21 Primary care physician: Unknown Physician Consults: 04/19/21 06:53 Consult to Neurology Routine Consulting Provider: [facility] Reason for consultation: seizure; subdural hematoma Attending physician on discharge: Graeme Ly DS: Diagnosis Discharge Diagnosis (1) Subdural hematoma: Status: Acute (2) Fall: Status: Acute (3) Seizure disorder: Status: Acute (4) Major neurocognitive disorder as late effect of traumatic brain injury without behavioral disturbance: Status: Acute DS: Medications Discharge Medications Home Medications: Home Medications Medication Instructions Recorded Confirmed acetaminophen 325 mg tablet 650 mg PO Q6H PRN 04/12/21 04/12/21 (Tylenol) divalproex 125 mg tablet,delayed 1 tab PO BEDTIME 04/12/21 04/12/21 release divalproex 250 mg tablet,delayed 1 tab PO BID 04/12/21 04/12/21 release dronabinol 2.5 mg capsule 1 cap PO BID 04/12/21 04/12/21 lidocaine 5 % topical ointment 1 appl TOPICAL BID PRN 04/12/21 04/12/21 polyethylene glycol 3350 17 17 g PO DAILY 04/12/21 04/12/21 gram/dose oral powder (Miralax) sennosides 8.6 mg tablet (senna) 8.6 mg PO BEDTIME 04/12/21 04/12/21 Previous Rx's Medication Instructions Recorded Dronabinol 1 cap PO BID 10 Days 04/19/21 acetaminophen 325 mg tablet 650 mg PO Q6H PRN 10 Days tab 04/19/21 divalproex 250 mg tablet,delayed 250 mg PO BID 10 Days #20 tab 04/19/21 release lidocaine 5 % topical ointment 1 appl TOPICAL BID PRN 10 Days g 04/19/21 lithium carbonate 300 mg tablet 450 mg PO BID 10 Days #30 tab 04/19/21 olanzapine 5 mg tablet 5 mg PO TID 10 Days #30 tab 04/19/21 olanzapine 5 mg tablet 5 mg PO TID PRN 10 Days tab 04/19/21 polyethylene glycol 3350 17 gram 17 g PO DAILY 10 Days ea 04/19/21 oral powder packet sennosides 8.6 mg tablet (Senna 8.6 mg PO BEDTIME 10 Days #10 tab 04/19/21 Lax) trazodone 100 mg tablet 100 mg PO BEDTIME PRN 10 Days tab 04/19/21 Mental Status Exam Mental Status Exam Narrative: On hospital gowns, she is fairly groomed, sedated and drowsy, unable to respond to verbal stimuli. Thought process and thought content unable to assess. Insight judgment and impulse control unable to assess due to change of mental status DS: Summary Hospital Course Hospital Course: See admission note for details. The patient was admitted into the facility and we had a family meeting with her daughter, brother and sister over the phone and the family was very clear to the patient has DNR and DNI and her wishes, in case that her cognition would be deteriorated, would be comfort care. During the family meeting we discussed treatment options and the family agreed to go in an aggressive titration of Zyprexa to control her behavior. The patient was on one-to-one observation for safety and apparently in the early childhood education coordinator of today she was up and awake and she had a seizure. She fell and hit her head and had a tonic clonic seizure. CT scan was ordered and he showed a subdural hematoma so she was transferred to Medicine. Time spent discussing smoking cessation with patient: 3 to 10 minutes Status at Discharge Cognitive/behavioral status at discharge: The patient was unconscious when she was transferred Overall status at discharge: other (The patient is medically compromised) Time Spent with Patient Time attestation: Total time spent providing and/or coordinating discharge services: Time spent: Less than 30 minutes Discharge Plan Discharge Patient Disposition: Xfer Critical Access Hosp Discharge Diagnosis: Subdural hematoma Referrals: Physician,Unknown [Primary Care Provider] - 1 Week Discharge Medications: Continued divalproex 250 mg tablet,delayed release (DR/EC) 1 tab PO BID RF: 0 divalproex 125 mg tablet,delayed release (DR/EC) 1 tab PO BEDTIME RF: 0 lidocaine 5 % ointment 1 appl topical BID PRN (Reason: Pain) RF: 0 divalproex 250 mg Tablet,Delayed Release (Dr/Ec) 250 mg PO BID 10 Days Qty: 20 RF: 0 olanzapine 5 mg Tablet 5 mg PO TID PRN (Reason: agitation) 10 Days RF: 0 lithium carbonate 300 mg Tablet 450 mg PO BID 10 Days Qty: 30 RF: 0 Discontinued polyethylene glycol 3350 [Miralax] 17 gram/dose Powder 17 g PO DAILY RF: 0 sennosides [senna] 8.6 mg Tablet 8.6 mg PO BEDTIME RF: 0 dronabinol 2.5 mg capsule 1 cap PO BID RF: 0 acetaminophen [Tylenol] 325 mg Tablet 650 mg PO Q6H PRN (Reason: Pain) RF: 0 Hold Instructions: Resume on 04/21/21. sennosides [Senna Lax] 8.6 mg Tablet 8.6 mg PO BEDTIME 10 Days Qty: 10 RF: 0 polyethylene glycol 3350 17 gram Powder In Packet 17 g PO DAILY 10 Days RF: 0 olanzapine 5 mg Tablet 5 mg PO TID 10 Days Qty: 30 RF: 0 trazodone 100 mg Tablet 100 mg PO BEDTIME PRN (Reason: Insomnia) 10 Days RF: 0 Dronabinol 1 cap PO BID 10 Days RF: 0 acetaminophen 325 mg Tablet 650 mg PO Q6H PRN (Reason: Pain) 10 Days RF: 0 lidocaine 5 % Ointment 1 appl topical BID PRN (Reason: Pain) 10 Days RF: 0 Stand Alone Forms: Patient Portal Discharge page
--- NOTE | 2021-04-19 10:35 | MHC.SL.SWA ---
Speech Pathologist Impression: Within Functional Limits Dysphasia Diet Status: Upgrade Liquid Consistency and Strategies for Safe Swallow: Liquid Intake Recommendation: Thin Liquid Intake Strategies: Small Sips Solid Food Consistency: Dietary Recommendations: Regular Additional Modifications to Solid Foods: No overt s/s of aspiration. Recommend regular solids, thin liquids, and pills whole in liquid or puree depending on patient's tolerance. 1:1 assistance. Patient is confused and may need assistance during meals. Recommend continue aspiration precautions. Further ST intervention is no longer warranted as swallow function is deemed WFL. Please re-refer if there are any changes or if LEAD DATABASE DEVELOPER can be of further assistance. Oral Medication Intake: Whole with Puree Compensatory Strategies and Precautions to be Taken for Safe Swallow: Sitting Upright (90 deg) Small Bites and Sips Alternate Liquids/Solids Rate of Ingestion Change Oral Check Supervision While Eating and Drinking for Safe Swallow: Total Assistance Recommendation for Speech: NA:Typical Evaluation Charge Account Identification Clerk Clinican/Clinical Fellow: No Supervisory Statement: I have reviewed and agree with the student/clinical fellow's documentation: N/A Speech Language Pathologist: Jaylin Villasenor M.A., CCC-LEAD DATABASE DEVELOPER
[2021-04-19 11:37] VITALS: BP 125/65; PULSE 68; RESP 20; TEMP 36; O2SAT 99
--- NOTE | 2021-04-19 13:19 | P.CNNE_ITS ---
History of Present Illness Data of Consult Service Date: 04/19/21 Primary Care Provider: Unknown Physician HPI Reason for consult: Subdural hemorrhage 61 years old woman with underlying history of dementia and epilepsy who was on psychiatric floor when she fell and hit her head. She was taken to emergency room last night had a head CT that revealed a small subdural hemorrhage and then she was admitted on the floor. She was not having any seizures or any distress or pain or any focal weakness. [facility] Past Medical History Medical History TBI (traumatic brain injury) Social History Social History Household Members: Unknown / Unable to assess Housing: Unknown / Unable to assess Do you presently have visiting nurse or other home services: No Unable to assess alcohol history related to: Unknown Patient Tobacco Use Status: Never used Tobacco Use of substances other than those prescribed or required for medical reasons: Unknown Currently Displaying Signs/Symptoms of Drug Intoxication Withdrawal: No Advance Directives: No Advance Directives Information Provided: No Do you have thoughts of harming others: None Do you have a plan to hurt others: No Plan Recently lost weight without trying: Unsure How much weight loss: Unsure service: No Current occupational status: disabled Sexual orientation: Straight/Heterosexual Meds Allergies Allergy/AdvReac Type Severity Reaction Status Date / Time No Known Allergies Allergy Verified 04/11/21 20:47 Active Medications: Current Medications Generic Name Dose Route Start Last Admin Trade Name Freq PRN Reason Stop Dose Admin Acetaminophen 650 mg 04/19/21 06:51 Acetaminophen Supp 650 Mg Supp.Rect [place] Q6H PRN Pain, Mild (Pain Scale 1-3) Valproic Acid 250 mg/ Dextrose 52.5 mls @ 52.5 mls/hr 04/19/21 08:00 04/19/21 10:57 IV Infused Q8H VIKTORIYA Infusion Lorazepam 2 mg 04/19/21 08:15 Lorazepam 2 Mg/Ml Vial IVPUSH Q6H PRN seizure Sodium Chloride 3 ml 04/19/21 08:00 04/19/21 09:08 0.9 % Sodium Chloride Flush 3 Ml Syringe IVFLUSH 3 ml QSHIFT VIKTORIYA Administration Home Medications Medication Instructions Recorded Confirmed Last Taken Type divalproex 125 mg tablet,delayed 1 tab PO BEDTIME 04/12/21 04/12/21 Unknown History release divalproex 250 mg tablet,delayed 1 tab PO BID 04/12/21 04/12/21 Unknown History release lidocaine 5 % topical ointment 1 appl TOPICAL BID PRN 04/12/21 04/12/21 Unknown History Physical Exam Vital Signs: Vital Signs: Last Vital Signs Temp 96.8 F 04/19/21 11:37 Pulse 68 04/19/21 11:37 Resp 20 04/19/21 11:37 BP 125/65 04/19/21 11:37 Pulse Ox 99 04/19/21 11:37 Neuro: Other: She was alert and awake with wake affect. Sometime she would follow commands. There was no focal arm or leg weakness. Face was symmetrical. Visual marquez seem to be full. Results Labs Labs: Her head CT revealed moderate to severe diffuse cerebral atrophy involving frontoparietal temporal areas more than others and a right frontal tiny subdural bleed. Assessment and Plan (1) Subdural hematoma: Status: Acute 61 years old woman with significant underlying degenerative brain disease resulting in multiple areas of atrophy with clinical diagnosis of dementia and epilepsy had a fall. After that she was noted to have a tiny right frontal area subdural bleed on CT scan of brain. It was asymptomatic and I do not suspected to get worsen. At this time other than caution no significant intervention was needed. Procedures Date of Service Date of Service: 04/19/21
--- NOTE | 2021-04-19 18:15 | HO.PM.IMPN ---
Subjective Subjective Date of Service: 04/19/21 Interval History: History obtained from pt's daughter/HCP Cherri due to pt's confusion/disorganized thought. Pt appears medically well/stable and passed ELECTRONICS DESIGN ENGINEER evaluation. Per Cherri, the pt is DNR/DNI and no artificial hydration is desired, either. If CTH is stable and she is likely to survive this SDH, plan is for discharge back to inpt psychiatry Review of Systems Review of Systems: Yes Unobtainable due to mental status Physical Exam Vital Signs: Vital Signs: Last Vital Signs Temp 96.8 F 04/19/21 11:37 Pulse 68 04/19/21 11:37 Resp 20 04/19/21 11:37 BP 125/65 04/19/21 11:37 Pulse Ox 99 04/19/21 11:37 Gen: in no acute distress HEENT: sclera anicteric, moist mucus membranes Neck: supple Lungs: clear to auscultation bilaterally Heart: regular rate and rhythm, no murmurs Abd: soft, non-tender, non-distended Ext: no edema Skin: warm/well-perfused Neuro: disorganized thought, uncooperative with exam Psych: labile affect Objective Data Active Medications Acetaminophen (Acetaminophen Supp 650 Mg Supp.Rect) 650 mg [place] Q6H PRN PRN Reason: Pain, Mild (Pain Scale 1-3) Valproic Acid 250 mg/ Dextrose 52.5 mls @ 52.5 mls/hr IV Q8H [facility] Last Infusion: 04/19/21 17:54 Dose: 0 mls/hr Documented by: ANNA Lorazepam (Lorazepam 2 Mg/Ml Vial) 2 mg IVPUSH Q6H PRN PRN Reason: seizure Sodium Chloride (0.9 % Sodium Chloride Flush 3 Ml Syringe) 3 ml IVFLUSH QSHIFT [facility] Last Admin: 04/19/21 16:37 Dose: 3 ml Documented by: ANNA Labs Labs: Impressions Head CT 04/19/21 14:00 IMPRESSION: Stable exam. Stable small right-sided low attenuating subdural hematoma with small hyperdense component. No significant mass effect. Assessment and Plan (1) Subdural hematoma: Status: Acute (2) Seizure disorder: Status: Acute Assessment and Plan: hospital d#1 61yo F with vascular dementia, TBI, epilepsy admitted to [facility] psych 9/14/21 for management of behavioral disturbance had grand mal seizure/fall and was found to have small SDH, so was transferred to [facility] [place] # SDH - stable, small; per Neuro, unlikely to cause any symptoms and prognosis is good; stable for transfer back to psych # seizure disorder - switch IV to PO VPA # dementia with behavioral disturbance - continue lithium, prn olanzapine as per psychiatry # VTE ppx - SCDs Quality Stroke Does the patient have a stroke diagnosis?: No VTE Prior VTE?: No VTE Risk Level:: Medical - moderate - high VTE Device Contraindication: N/A - Device Ordered VTE Drug Contraindication: Treatment Not Indicated
--- NOTE | 2021-04-19 18:19 | PC.NURSE ---
At 1630 in to see pt. Assisted 1:1 sitter Vanna walk pt to bathroom. Pt requires an assist of 2 as requires a significant amount of redirection to complete simple tasks. Pt able to communicate needs but pauses mid sentence and loses track of what she is trying to say. Report given to Vanna and patient observers in camera room as pt can be very impulsive and unpredictable with movements. Advised staff use gait belt as a matter of routine when ambulating patient. Vanna verbalized (+) understanding. Pt voided. Required assistance to use toilet paper. When handed paper pt put it back on roll instead of using it to wipe. Needed direction to wipe self. Pt assisted back to bed with assist of 2. Pt pleasant.
--- NOTE | 2021-04-19 18:44 | MHC.CARE ---
CARE Team receives a consult, siting that patient is medically cleared and able to return to [facility]. There are no beds available on S[facility] this evening. CARE Team will coordinate with [facility] and will coordinate assessment and admission as needed tomorrow.
[2021-04-19] MEDS: Lithium Carbonate 300 MG TABLET 450 MG PO (19:58)
[2021-04-19] MEDS: Divalproex Sodium ER 250 MG TAB.ER.24H 125 MG PO (19:58)
[2021-04-19] MEDS: Divalproex Sodium ER 250 MG TAB.ER.24H PO (19:58)
[2021-04-19 23:51] VITALS: BP 152/78; PULSE 59; RESP 18; TEMP 36.1; O2SAT 98
[2021-04-20 04:00] VITALS: BP 146/81; PULSE 72; RESP 18; TEMP 36.1; O2SAT 98
[2021-04-20 07:32] VITALS: BP 131/66; PULSE 57; RESP 18; TEMP 36.1; O2SAT 99
[2021-04-20 08:36] VITALS: BP 130/79; PULSE 98; RESP 20; TEMP 36.5; O2SAT 20
[2021-04-20] MEDS: Lithium Carbonate 300 MG TABLET 450 MG PO (09:02)
[2021-04-20] MEDS: Divalproex Sodium ER 250 MG TAB.ER.24H 125 MG PO (09:03)
[2021-04-20] MEDS: 0.9 % Sodium Chloride Flush 3 ML SYRINGE IVFLUSH (09:04)
[2021-04-20] MEDS: Divalproex Sodium ER 250 MG TAB.ER.24H PO (09:05)
[2021-04-20 09:30] VITALS: BMI 26.6
--- NOTE | 2021-04-20 10:14 | PM.DS ---
DS: Providers Provider Date of Service: 04/20/21 Date of admission: 04/19/21 06:45 Date of discharge: 04/20/21 Primary care physician: Unknown Physician Admitting clinician: Pedro Pablo Torres Attending physician on admission: Pedro Pablo Torres Consults: 04/19/21 06:53 Consult to Neurology Routine Consulting Provider: [facility] Reason for consultation: seizure; subdural hematoma 04/19/21 18:18 Consult to Care Team Routine Comment: Reason for consultation: medically cleared for d/c back to [facility] psych Attending physician on discharge: Teresa Mcmahon Discharging clinician: Teresa Mcmahon DS: Diagnosis Discharge Diagnosis (1) Subdural hematoma: Status: Acute (2) Seizure disorder: Status: Acute (3) Major neurocognitive disorder as late effect of traumatic brain injury without behavioral disturbance: Status: Acute (4) Fall: Status: Acute DS: Summary Hospital Course Hospital Course: From H+P by admitting hospitalist Pedro Pablo Torres, 04/19/21: 61-year-old female with a past medical history of dementia, traumatic brain injury, history of seizures presented to the hospital after a fall; subsequently admitted to the [facility] unit. On 04/19/2021 around 5:00 a.m. TRIPLE VALVE TESTER was called in because patient had a seizure and fall; the follow-up CT head showed small subdural hematoma.? Subsequently transferred to the medical floors for further management. Patient had a generalized tonic-clonic seizure; had drooling from his mouth; also noted stool and urinary incontinence. Patient was postictal and drowsy.? Gradually becoming more alert. Spoke to the patient's daughter Cherri who is the healthcare proxy who mentioned the does not want any aggressive intervention as patient was willing to keep her comfortable. Review of the system is limited as the patient is drowsy. This 61yo F with vascular dementia, TBI, and epilepsy was admitted to [facility] 04/17/21 for management of behavioral disturbance. She had a grand mal seizure/fall and was found to have small SDH, so was transferred [place] [facility] Neurology was consulted. The SDH was small and did not change on repeat imaging. Per the neurologist, this SDH was unlikely to cause any symptoms and her prognosis is good. Per her daughter/healthcare proxy, the patient is DNR/DNI and is not to receive IV hydration, but laboratory monitoring is fine. She was seen by GLASS DEPOSITION TENDER and cleared for regular diet consistencies. She was switched from IV to PO valproate and lithium was continued, with as-needed olanzapine. She is stable for transfer back to psych Time Spent with Patient Time attestation: Total time spent providing and/or coordinating discharge services: Discharge coordination time: Greater than 30 minutes Quality: Stroke Does the patient have a stroke diagnosis?: No Physical Exam Vital Signs: Vital Signs: Last Vital Signs Temp 97.7 F 04/20/21 08:36 Pulse 98 04/20/21 08:36 Resp 20 04/20/21 08:36 BP 130/79 04/20/21 08:36 Pulse Ox 20 L 04/20/21 08:36 Body Mass Index 26.6 Gen: in no acute distress HEENT: sclera anicteric, moist mucus membranes Neck: supple Lungs: clear to auscultation bilaterally Heart: regular rate and rhythm, no murmurs Abd: soft, non-tender, non-distended Ext: no edema Skin: warm/well-perfused Neuro: disorganized thought, uncooperative with exam Psych: labile affect, no insight DS: Data Data Completed and Pending Completed studies during hospitalization [Text1]: Impressions Head CT 04/19/21 14:00 IMPRESSION: Stable exam. Stable small right-sided low attenuating subdural hematoma with small hyperdense component. No significant mass effect. Discharge Plan Discharge Patient Disposition: Xfer Psychiatric Hosp Discharge Diagnosis: Subdural hematoma Referrals: Physician,Unknown [Primary Care Provider] - 1 Week Discharge Medications: Continued divalproex 250 mg tablet,delayed release (DR/EC) 1 tab PO BID RF: 0 divalproex 125 mg tablet,delayed release (DR/EC) 1 tab PO BEDTIME RF: 0 lidocaine 5 % ointment 1 appl topical BID PRN (Reason: Pain) RF: 0 divalproex 250 mg Tablet,Delayed Release (Dr/Ec) 250 mg PO BID 10 Days Qty: 20 RF: 0 olanzapine 5 mg Tablet 5 mg PO TID PRN (Reason: agitation) 10 Days RF: 0 lithium carbonate 300 mg Tablet 450 mg PO BID 10 Days Qty: 30 RF: 0 Discontinued polyethylene glycol 3350 [Miralax] 17 gram/dose Powder 17 g PO DAILY RF: 0 sennosides [senna] 8.6 mg Tablet 8.6 mg PO BEDTIME RF: 0 dronabinol 2.5 mg capsule 1 cap PO BID RF: 0 acetaminophen [Tylenol] 325 mg Tablet 650 mg PO Q6H PRN (Reason: Pain) RF: 0 Hold Instructions: Resume on 04/21/21. sennosides [Senna Lax] 8.6 mg Tablet 8.6 mg PO BEDTIME 10 Days Qty: 10 RF: 0 polyethylene glycol 3350 17 gram Powder In Packet 17 g PO DAILY 10 Days RF: 0 olanzapine 5 mg Tablet 5 mg PO TID 10 Days Qty: 30 RF: 0 trazodone 100 mg Tablet 100 mg PO BEDTIME PRN (Reason: Insomnia) 10 Days RF: 0 Dronabinol 1 cap PO BID 10 Days RF: 0 acetaminophen 325 mg Tablet 650 mg PO Q6H PRN (Reason: Pain) 10 Days RF: 0 lidocaine 5 % Ointment 1 appl topical BID PRN (Reason: Pain) 10 Days RF: 0 Discharge Orders: Discharge Order (Routine); Ordered 04/20/21 Ordered By: Teresa Mcmahon Diet: advance to usual diet Activity on Discharge: As tolerated Stand Alone Forms: Patient Portal Discharge page Care Plan Goals: behavioral control Health Concerns: dementia with behavioral disturbance subdural hematoma, asymptomatic Plan of Treatment: transfer to psychiatry Assessment: as above Patient Instructions: Epilepsy (IP)
[2021-04-20 11:51] VITALS: BP 118/65; PULSE 70; RESP 18; TEMP 36.4; O2SAT 96
== END 2021-04-20 14:09 | DRG 55 ==
PROVIDERS: Admitting Provider Hospitalist; PCP Internal Medicine; Visit Provider Family Medicine
DX: S06.5X9A Traumatic subdural hemorrhage with loss of consciousness of unspecified duration, initial encounter (principal); F03.91 Unspecified dementia, unspecified severity, with behavioral disturbance; F31.9 Bipolar disorder, unspecified; W18.30XA Fall on same level, unspecified, initial encounter; Z87.820 Personal history of traumatic brain injury; G40.909 Epilepsy, unspecified, not intractable, without status epilepticus; R29.6 Repeated falls; Z91.81 History of falling; Z79.899 Other long term (current) drug therapy; Z66 Do not resuscitate
CPT/HCPCS: 70450; 92610; 99219

== ENCOUNTER 2021-04-20 13:47 | Inpatient (IN) | payer BC, SELFPAY ==
[2021-04-20] VITALS (7 sets, daily range): BP systolic 144–190; BP diastolic 69–95; PULSE 63–120; RESP 14–24; TEMP 36.6–36.8; O2SAT 96–100
--- NOTE | ~2021-04-20 | CT_ITS ---
EXAMINATION: CT HEAD WITHOUT CONTRAST CLINICAL INFORMATION: recent subdural ms change non verbal gait disturbance COMPARISON: CT head April 19, 2021, April 16, 2021 TECHNIQUE: Contiguous axial imaging was performed from the skull base to vertex without intravenous administration of contrast. Coronal and sagittal reformatted images are performed at CT scanner This CT examination was performed using dose optimization techniques as appropriate, variously including the following: *Automated exposure control *Adjustment of mA and/or kV according to patient size (this includes techniques or standardized protocols for targeted exams where dose is matched to indication/reason for exam; i.e. extremities or head) *Use of iterative reconstruction technique DLP: 655. mGy-cm FINDINGS: Expected evolution of the small right-sided low attenuating subdural hematoma. The hyperdense component is diminishing in density. Coronal image 64/29 series 7. No new intracranial hemorrhage. There is no evidence of acute territorial infarction. No abnormal mass effect or midline shift is seen. [place] to white matter differentiation is well preserved. No extra-axial fluid collections are identified. There is generalized global volume loss. There is moderate prominence of the ventricles and the sulci . There is mild hypodensity of the periventricular white matter due to chronic small vessel ischemic disease. There are vascular calcifications of the internal carotid arteries bilaterally. The osseous structures and soft tissues are normal. The mastoid air cells and visualized portions of the paranasal sinuses are well aerated. CT/CT head/brain wo con IMPRESSION: Expected evolution of small right-sided low attenuating subdural hematoma. No new intracranial hemorrhage and no mass effect.
--- NOTE | ~2021-04-20 | MR_ITS ---
EXAMINATION: MR BRAIN WITHOUT CONTRAST CLINICAL INFORMATION: Change in mental status. History of stroke. COMPARISON: CT head from 04/25/2021 and 04/16/2021. TECHNIQUE: MRI of the brain was obtained using routine sequences without contrast. FINDINGS: No focal restricted diffusion is demonstrated to suggest acute or subacute cerebral ischemia. No evidence of acute or chronic hemorrhagic products on heme-sensitive imaging. Scattered periventricular, deep white matter, and brainstem T2 FLAIR hyperintensities consistent with mild to moderate underlying microangiopathy. There is a degree of generalized cerebral volume loss with prominence of both the ventricles and sulcal spaces. However, there may be mildly disproportionate prominence of the ventricles. This may be due to disproportionate central volume loss; however, correlation with symptoms of potentially superimposed normal pressure hydrocephalus is recommended. The posterior callosal angle is borderline decreased (90 degrees) when measured on a corrected coronal image, orthogonal to the anterior commissure-posterior commissure line. The previously noted trace right convexity hygroma was better demonstrated on recent CT. No abnormal mass effect. No midline shift. The sella turcica is mildly expanded with flattening of the pituitary gland. Normal positioning of the cerebellar tonsils. Normal arterial and venous vascular flow voids are present. Normal, homogeneous marrow signal. Mild mucosal thickening of the paranasal sinuses. No signal abnormalities within the mastoids. MR/MR head/brain wo con IMPRESSION: 1. No acute intracranial abnormalities. 2. Mild to moderate underlying microangiopathy. 3. There is a degree of generalized cerebral volume loss with prominence of both the ventricles and sulcal spaces. However, there may be mildly disproportionate prominence of the ventricles. This may be due to disproportionate central volume loss; however, correlation with symptoms of potentially superimposed normal pressure hydrocephalus is recommended.
--- NOTE | 2021-04-20 14:49 | HO.PSYADMNOT ---
HPI Chief Complaint: Psychosis Sources of Information: patient interviewed and chart reviewed HPI Subjective Notes: Section 12B Narrative: The patient is a 61-year-old female, mother of 2 children, with a diagnosis of dementia who was admitted at [facility] for nearly 2 months recently this year. She was initially admitted a few days ago but she was discharged and transferred to Medicine after she had the seizure, hit her head and had a subdural hematoma. She was transferred to Medicine, treated and transferred back to Psychiatry. For more details of the admission please see the 1st admission note. On interview, the patient had a lower mood, she was disoriented confused but pleasant. She denies new symptoms Past Psychiatric History: Hx of being diagnosed with ADD -Recently discharged from [facility] after sustained admission (admitted 11/25/20-02/08/21) for concerns of worsening cognitive function/ decline, agitation, and delusional thinking. Per discharge summary, on admission Johanna was very confused, disoriented. Her daughter (Cherri) reported that the last several years she had noticed minor memory problems in her mom but earlier in the week there was a dramatic decline in her cognitive abilities, ?like night and day.? Sx included delusional thoughts, talking to the glasgow, seeing people, worsening memory.? Precipitating factors included that she had some new, abnormal signs on her EEG and her neurologist, Dr. Ortega Enriquez at [facility], added lamictal to her existing valproic acid (Depakote ER 500 mg QD and 250 mg QHS) on 11/13/20. Lamictal was discontinued and Johanna was brought to [facility] on 11/21-11/24/20 where she had an MRI, EEG, and lacosamide was initiated. She was also put on olanzapine 5 mg QHS for agitation and wandering with good effect. During the course of her hospitalization at [place], she had a brief send out due to unwitnessed fall, sustained tibial fx. There was concern for overlying delirium due to fracture, pain. She had periods of mood lability, quick switches from euphoria to anger to tearfulness. She dad paranoid ideation towards staff, thought they were trying to hurt her. -Past med trials: During hospitalization at [place], olanzapine was titrated off due to concerns of anticholinergic burden. Lacosamide 100 mg BID was also discontinued due to concerns for worsening behavioral sx. She was trialed on ativan 0.5 mg TID but this was discontinued due to concerns for disinhibition and continued as a PRN for agitation. Gabapentin was trialed at 400 mg TID but discontinued due to confusion, unclear benefit. She was trialed on risperidone 1.5 mg but discontinued due to lack of benefit, restlessness. She was trialed on seroquel 150 mg but discontinued due to similar reasons. She was then trialed on remeron 7.5 mg but discontinued quickly due to worsening sleep, activation. Ultimately, she was discharged on titration of depakote to DR formulation 500 mg BID and dronabinol 2.5 mg BID. She was sent to [facility] for assisted living/ memory care unit with VNA and PT/OT services. However, she eventually required 1:1 care at the facility due to worsening behaviors. Her valproic acid was decreased at the counts include 234 beds at the [facility] due to elevated VPA level of [address] 125 mg QHS and 250 mg BID. She was recently trialed on strattera 10 mg but per her prescriber, she got ?progressively worse? on this medication. Medical Evaluation Reviewed: Yes [facility] Medical History TBI (traumatic brain injury) Family History: Her brother reported that their father had dementia. Social History: Living with her autistic son who is highly functional, she has adult children. The patient have neurocognitive symptoms issues and early 50s Substance History: Denies Trauma History: Denies Meds/Allergies Allergies Allergies Allergy/AdvReac Type Severity Reaction Status Date / Time No Known Allergies Allergy Verified 04/11/21 20:47 Mental Status Exam Mental Status Exam Patient Appearance: Well Grooomed (Of hospital gowns) Patient Orientation: Person Level of Consciousness: Awake, Disoriented and Restless Patient Behavior: Restless and Anxious Mood Description: Depressed Affect Description: Labile Patient Cognition Impaired: Yes Ability to Follow Directions: Fair Speech Pattern: Impoverished Hallucinations: None Delusions: Not Present Thought Process: Incoherent and Racing Thought Content: positive for Poverty of Content and positive for Tangential Judgement: Poor Assessment & Plan Assessment & Plan (1) Subdural hematoma: Status: Acute Code(s): S06.5X9A - Traumatic subdural hemorrhage with loss of consciousness of unspecified duration, initial encounter (2) Seizure disorder: Status: Acute Code(s): G40.909 - Epilepsy, unspecified, not intractable, without status epilepticus (3) Major neurocognitive disorder as late effect of traumatic brain injury without behavioral disturbance: Status: Acute Code(s): S06.9X9S - Unspecified intracranial injury with loss of consciousness of unspecified duration, sequela; F02.80 - Dementia in other diseases classified elsewhere without behavioral disturbance (4) TBI (traumatic brain injury): Status: Acute Code(s): S06.9X9A - Unspecified intracranial injury with loss of consciousness of unspecified duration, initial encounter Assessment and Plan: The patient is a middle-aged female with a long history of dementia, most likely vascular as [facility], referred from her [facility] for violent behavior. She was admitted initially to this facility and later she had to be transferred to Medicine due to a subdural hematoma after seizure. Currently, she is medically cleared as per medical team. Plan 1. Continue with same treatment Informed Consent: does not understand Reason for continued inpatient stay Substantial Risk for: harm to self, harm to others, inability to function, rapid decompensation and med/psych decompensation
[2021-04-20] MEDS: OLANZapine 5 MG TABLET PO (15:32)
[2021-04-20] MEDS: Valproic Acid (as Sodium Salt) 250 MG in Dextrose 5 % 50 ML 52.5 MG IV (20:02)
[2021-04-20] MEDS: 0.9 % Sodium Chloride 1,000 ML 75 ML IVCONT (20:15)
--- NOTE | 2021-04-20 20:24 | PC.NURSE ---
At Approximately 19:43pm Patient began seizing in standing position at bedside and was assisted to bed safely. An CHILD WELFARE COUNSELOR was called by patient's assigned primary nurse. CHILD WELFARE COUNSELOR arrived to unit to assess patient and provide care; senior portfolio manager: Bryant Gomez and Anant Torres. Patient actively seizing for 6 minutes. 3L O2 applied via nasal cannula. IV started in Right Forearm, Normal Saline administered at 75 ml/hr and 250 mg Depakote IV administered over an hour. Vitals assessed. Anant Torres instructed all 21:00 PO medications held due to Post-Ictal phase; patient not able to take anything PO at this time. Per Anant Torres reassess patient in 8 hours for continued care/medication orders.
--- NOTE | 2021-04-20 20:30 | PM.EVENT ---
Event Note Date of Service: 04/20/21 Event Note: Seizure episode: At around 8:00 p.m. on 04/20/2021; patient had an episode of seizure. Generalized tonic colonic. Did not have any fall per RN at bedside. Patient was forms to loud verbal stimuli/pain stimuli and goes back to sleep. Postictal. Protecting airways; Supplemental oxygen p.r.n. Seizure precautions, aspiration precautions. Fall precautions. Patient is being given Depakote 250 mg IV x1; will also start the patient on gentle fluids. Discussed with the patient's psychiatric nurse practitioner as well. Recommended Depakote 250 mg t.i.d. Notified family Cherri; family inclined towards comfort measures, did not want any aggressive measures. Around 11:00 p.m. patient had another episode of seizure. Given extra dose of Depakote 250 mg IV. Spoke to the RN for seizure precautions Patient was placed on Ativan IV p.r.n. for seizure. . Postop showed patient is alert and trying to get out of bed; RN patient the patient on wrist restraints as patient was trying to pull out the lines. Updated the patient's healthcare proxy Neurology follow-up given recurrent seizures.
--- NOTE | 2021-04-20 21:37 | P.PNPSI_ITS ---
Subjective Subjective Date of Service: 04/21/21 Reason For Visit: Psychosis Subjective Notes: Conditional Voluntary Healthcare Proxy: Yes Guardianship: No Medical Problems Affecting Mental Status: Yes Interim History: Patient seen as per protocol of mechanical restraint, soft restraint on bilateral wrists. Reason for restraint is pt attempting to remove IV in context of TBI, dementia, and recent tonic clonic seizure. Johanna was lying down in bed with a 1:1 sitter, eyes open and listening to pleasant music, lights dimmed. I did not attempt to speak with pt as she was in a restful state and it was deemed that this was more therapeutic than attempting interview. Discussed with team. Medication Compliance: Yes Side effects from medications: No Attending Groups: No Review of Systems Acute medical concerns: Yes recent rapid response called due to tonic clonic seizure Diagnostics Vital Signs (24Hr): Vital Signs - 24 hr 04/20/21 15:02 04/20/21 19:55 04/20/21 20:07 Temperature 97.9 F 97.9 F 97.9 F Pulse Rate 63 83 83 Respiratory Rate 18 18 18 Blood Pressure 144/69 H 190/94 H 190/94 H Pulse Oximetry 97 100 100 04/20/21 20:20 Temperature Pulse Rate 76 Respiratory Rate Blood Pressure 155/95 H Pulse Oximetry 100 Medications Medications Current Medications Acetaminophen (Acetaminophen Supp 650 Mg Supp.Rect) 650 mg AL Q6H PRN PRN Reason: Pain, Mild (Pain Scale 1-3) Al Hydroxide/Mg Hydroxide (Magnesium Hydrox/Alum Hydrox 30 Ml Oral.Susp) 30 ml PO Q6H PRN PRN Reason: Heartburn/Nausea Divalproex Sodium (Divalproex Sodium Er 250 Mg Tab.Er.24h) 250 mg PO BID [facility] Last Admin: 04/20/21 20:52 Dose: Not Given Documented by: Divalproex Sodium (Divalproex Sodium Er 250 Mg Tab.Er.24h) 125 mg PO BEDTIME [facility] Last Admin: 04/20/21 20:54 Dose: Not Given Documented by: Hydroxyzine HCl (Hydroxyzine Hcl 25 Mg Tablet) 25 mg PO BEDTIME PRN PRN Reason: Anxiety Sodium Chloride (Ns) 1,000 mls @ 75 mls/hr IVCONT .[id number] [facility] Moquino Carbonate (Moquino Carbonate 300 Mg Tablet) 450 mg PO BID [facility] Last Admin: 04/20/21 20:50 Dose: Not Given Documented by: Lorazepam (Lorazepam 2 Mg/Ml Vial) 2 mg IVPUSH Q6H PRN PRN Reason: seizure Magnesium Hydroxide (Milk Of Magnesia 30 Ml Oral.Susp) 30 ml PO DAILY PRN PRN Reason: Constipation Olanzapine (Olanzapine 5 Mg Tablet) 5 mg PO Q4H PRN PRN Reason: agitation Last Admin: 04/20/21 15:32 Dose: 5 mg Documented by: Sodium Chloride (0.9 % Sodium Chloride Flush 3 Ml Syringe) 3 ml IVFLUSH QSHIFT VIKTORIYA Last Admin: 04/20/21 19:26 Dose: Not Given Documented by: Trazodone HCl (Trazodone Hcl 50 Mg Tablet) 50 mg PO BEDTIME PRN PRN Reason: Insomnia Allergies Allergies Allergy/AdvReac Type Severity Reaction Status Date / Time No Known Allergies Allergy Verified 04/11/21 20:47 Assessment & Plan Assessment & Plan (1) Subdural hematoma: Status: Acute Code(s): S06.5X9A - Traumatic subdural hemorrhage with loss of consciousness of unspecified duration, initial encounter (2) Seizure disorder: Status: Acute Code(s): G40.909 - Epilepsy, unspecified, not intractable, without status epilepticus (3) Major neurocognitive disorder as late effect of traumatic brain injury without behavioral disturbance: Status: Acute Code(s): S06.9X9S - Unspecified intracranial injury with loss of consciousness of unspecified duration, sequela; F02.80 - Dementia in other diseases classified elsewhere without behavioral disturbance (4) TBI (traumatic brain injury): Status: Acute Code(s): S06.9X9A - Unspecified intracranial injury with loss of consciousness of unspecified duration, initial encounter Assessment and Plan: The patient is a middle-aged female with a long history of dementia, most likely vascular as [facility], referred from her [facility] for violent behavior. She was admitted initially to this facility and later she had to be transferred to Medicine due to a subdural hematoma after seizure. Currently, she is medically cleared as per medical team. Plan 1. Continue with same treatment Greater than 50% of the session was spent on counseling and/or coordination of care Reason for contiued inpatient stay Substantial Risk for: inability to function, rapid decompensation and med/psych decompensation
[2021-04-21] MEDS: Valproic Acid (as Sodium Salt) 250 MG in Dextrose 5 % 50 ML 52.5 MG IV (00:03)
[2021-04-21 00:45] VITALS: PULSE 81; RESP 18; O2SAT 100
[2021-04-21 02:45] VITALS: BP 119/60; PULSE 69; RESP 15; TEMP 36.7; O2SAT 97
--- NOTE | 2021-04-21 03:50 | PC.NURSE ---
Upon start of shift at 1929, this RN was alerted patient is on the go , impulsively OOB and ambulated into hallway with 2 assist and gait belt; patient unable to communicate, would smile and make eye contact, minimal ability to follow directions as we attempted to coax her back to her room. Patient urinated while standing in hallway. After several minutes of coaxing, able to get patient back to bedroom, noted to start having small tics while standing next to bed, unwilling to sit on bed; within minutes patient began seizing while standing and Primary RN and PO who were by her sides were able to transfer patient into bed onto side without injury while actively seizing. FOREST ECONOMICS PROFESSOR was called@[phone]. See other RN note regarding medications and FOREST ECONOMICS PROFESSOR. Patient remained on 1:1 with PO also camera video observation in place for further safety measures. At 2039 patient was attempting to remove IV; Covering Psychiatric Provider was notified and TO was placed for soft wrist restraints; Psychiatric Provider came to unit within 15 minutes and assessed patient at bedside, protocol Restraint paperwork was not yet available on the unit for Provider to sign. Restraint Protocol was followed including vitals q2h. Patient remained with small twitching over next few hours; intermittent dozing and startling awake, confused restless; yelling ow during in care or anytime extremities were repositioned. Per Hospitalists verbal order patient was kept strict NPO after initial seizure due to aspiration risks. At 2254, PO notified Primary RN that patient was having increase of tics; RN assessed patient and notified Hospitalist at 2255 via text of start of seizure activity; @2300 patient began seizing (tonic clonic) and rolled on side in bed, FOREST ECONOMICS PROFESSOR was called again; Hospitalist and Nursing Forensic Photographer came to bedside. Seizure activity lasted approx 3 minutes and patient came out quicker than previous seizure. A second dose of Valproic Acid was ordered and administered via IV. Patient went into deep sleep <45minutes after seizure, and remained in deep sleep state until shortly after 4am when moderate twitches began, eyes opened making eye contact with PO at bedside: PO alerted RN of change of status; PRN Lorazapam IVP administered with effect. Tics noted to subside and patient returned to sleep state. At this time patient asleep, responsive to pain; nonverbal; unable to follow commands or make needs known. Remains in soft wrist restraints d/t confusion/disorientation when awake. 1:1 observation with PO at bedside and secondary observation with camera video observation active. Will continue to monitor closely an alert covering MD with any necessary updates.
[2021-04-21] MEDS: LORazepam 2 MG/ML VIAL 1 MG IVPUSH (04:06)
[2021-04-21 04:35] VITALS: BP 115/55; PULSE 74; RESP 18; TEMP 36.4; O2SAT 95
[2021-04-21 06:14] VITALS: BP 124/64; PULSE 68; RESP 16; TEMP 36.4; O2SAT 98
--- NOTE | 2021-04-21 06:18 | PC.NURSE ---
0610 trial of restraint removal; patient remains in sleep state with occasional purposeful movements of extremities. VSS. Remains with 1:1 PO at bedside and camera video observation in place for secondary safety measures.
[2021-04-21] MEDS: LORazepam 2 MG/ML VIAL IVPUSH ×2 (09:02→19:30)
--- NOTE | 2021-04-21 09:51 | HO.PSYCHPN ---
Subjective Subjective Date of Service: 04/22/21 Reason For Visit: Psychosis Interim History: Neuro:The patient offers no complaints. She has had 2 generalized seizures in the last 24 hours and was given 500 mg total dose of valproic acid intravenously. Her last drug level was 79 about a week ago and has not since being checked. She has had no further seizures in the last 18 hours. She is alert pleasant and will occasionally follow one-step commands. She does not verbalize much. She has a background off TBI, dementia, and recent tonic clonic seizure. Johanna was lying down in bed with a 1:1 sitter, eyes open and listening to pleasant music, lights dimmed. 04/21: H and P reviewed. Case DW RN and Parts Administrator. : Had 2 Sz in past 24 hours. IV VPA given. I added liquid VPA and asked for Neuro F/U. Appreciate Neuro feedback. HCP wants a few more days of observation for her to stabilize. Defer OUTBOARD TECHNICIAN/Hospice. Later was agitated and c/o Rt shoulder pain. Hospitalist ordered IV Morphine as PO not possible.Pt was resting comfortably Medication Compliance: Intermittent Review of Systems Medical Review of Systems: changed (as above) Mental Status Exam Mental Status Exam Patient Appearance: Well Grooomed (Of hospital gowns) Patient Orientation: Person Level of Consciousness: Awake, Disoriented and Restless Patient Behavior: Restless and Anxious Mood Description: Depressed Affect Description: Labile Patient Cognition Impaired: Yes Ability to Follow Directions: Fair Speech Pattern: Impoverished Diagnostics Vital Signs (24Hr): Vital Signs - 24 hr 04/20/21 15:02 04/20/21 19:55 04/20/21 20:07 Temperature 97.9 F 97.9 F 97.9 F Pulse Rate 63 83 83 Respiratory Rate 18 18 18 Blood Pressure 144/69 H 190/94 H 190/94 H Pulse Oximetry 97 100 100 04/20/21 20:20 04/20/21 22:35 04/20/21 23:00 Temperature 98.2 F Pulse Rate 76 65 120 H Respiratory Rate 14 24 H Blood Pressure 155/95 H 156/85 H 161/86 H Pulse Oximetry 100 100 96 04/20/21 23:35 04/21/21 00:45 04/21/21 02:45 Temperature 98.2 F 98.1 F Pulse Rate 120 H 81 69 Respiratory Rate 24 H 18 15 Blood Pressure 161/86 H 119/60 Pulse Oximetry 96 100 97 04/21/21 04:35 04/21/21 06:14 Temperature 97.6 F 97.5 F Pulse Rate 74 68 Respiratory Rate 18 16 Blood Pressure 115/55 L 124/64 Pulse Oximetry 95 98 Medications Medications Current Medications Acetaminophen (Acetaminophen Supp 650 Mg Supp.Rect) 650 mg [place] Q6H PRN PRN Reason: Pain, Mild (Pain Scale 1-3) Al Hydroxide/Mg Hydroxide (Magnesium Hydrox/Alum Hydrox 30 Ml Oral.Susp) 30 ml PO Q6H PRN PRN Reason: Heartburn/Nausea Divalproex Sodium (Divalproex Sodium Er 250 Mg Tab.Er.24h) 250 mg PO BID [facility] Last Admin: 04/20/21 20:52 Dose: Not Given Documented by: Divalproex Sodium (Divalproex Sodium Er 250 Mg Tab.Er.24h) 125 mg PO BEDTIME [facility] Last Admin: 04/20/21 20:54 Dose: Not Given Documented by: Hydroxyzine HCl (Hydroxyzine Hcl 25 Mg Tablet) 25 mg PO BEDTIME PRN PRN Reason: Anxiety Sodium Chloride (Ns) 1,000 mls @ 75 mls/hr IVCONT .[id number] [facility] Last Admin: 04/20/21 20:15 Dose: 75 mls/hr Documented by: [place] Carbonate ([place] Carbonate 300 Mg Tablet) 450 mg PO BID [facility] Last Admin: 04/20/21 20:50 Dose: Not Given Documented by: Lorazepam (Lorazepam 2 Mg/Ml Vial) 2 mg IVPUSH Q6H PRN PRN Reason: seizure Last Admin: 04/21/21 09:02 Dose: 2 mg Documented by: Lorazepam (Lorazepam 2 Mg/Ml Vial) 1 mg IVPUSH Q2H PRN PRN Reason: Seizures Last Admin: 04/21/21 04:06 Dose: 1 mg Documented by: Magnesium Hydroxide (Milk Of Magnesia 30 Ml Oral.Susp) 30 ml PO DAILY PRN PRN Reason: Constipation Olanzapine (Olanzapine 5 Mg Tablet) 5 mg PO Q4H PRN PRN Reason: agitation Last Admin: 04/20/21 15:32 Dose: 5 mg Documented by: Sodium Chloride (0.9 % Sodium Chloride Flush 3 Ml Syringe) 3 ml IVFLUSH QSHIFT [facility] Last Admin: 04/21/21 07:56 Dose: Not Given Documented by: Trazodone HCl (Trazodone Hcl 50 Mg Tablet) 50 mg PO BEDTIME PRN PRN Reason: Insomnia Allergies Allergies Allergy/AdvReac Type Severity Reaction Status Date / Time No Known Allergies Allergy Verified 04/11/21 20:47 Assessment & Plan Assessment & Plan (1) Subdural hematoma: Status: Acute Code(s): S06.5X9A - Traumatic subdural hemorrhage with loss of consciousness of unspecified duration, initial encounter (2) Seizure disorder: Status: Acute Code(s): G40.909 - Epilepsy, unspecified, not intractable, without status epilepticus (3) Major neurocognitive disorder as late effect of traumatic brain injury without behavioral disturbance: Status: Acute Code(s): S06.9X9S - Unspecified intracranial injury with loss of consciousness of unspecified duration, sequela; F02.80 - Dementia in other diseases classified elsewhere without behavioral disturbance (4) TBI (traumatic brain injury): Status: Acute Code(s): S06.9X9A - Unspecified intracranial injury with loss of consciousness of unspecified duration, initial encounter Assessment and Plan: The patient is a middle-aged female with a long history of dementia, most likely vascular as [facility], referred from her [facility] for violent behavior. She was admitted initially to this facility and later she had to be transferred to Medicine due to a subdural hematoma after seizure. Currently, she is medically cleared as per medical team. Plan 1. Continue with same treatment . No OUTBOARD TECHNICIAN for now. Ct liason with HCP and Case Mgmt. Hospitalist PRN. Greater than 50% of the session was spent on counseling and/or coordination of care Reason for contiued inpatient stay Substantial Risk for: med/psych decompensation
--- NOTE | 2021-04-21 10:19 | MHC.CM.PN ---
i spoke c nurse(s) caring for patient and pt's daughter - shawn (hcp). at this time pt was resting quiety in bed, looked comfortable. there was concern that patient would be better served for ongoing medical problems and treatment on the med/surg or IMC floor. in speaking c pt's hcp, she said she preferred to have patient stay on M1 as it is quieter c dim lighting and is conducive to rest which patient needs. she would like to see how the patient does over the next 24-48 hrs before considering fish skinning machine feeder/hospice or other options, she believes patient is overly tired and needs rest to recover. the plan at this time is to keep patient on M1 and reevaluate as needed to meet patient needs. this was shared c Nicola.N. caring for patient today. cm to cont. to follow.
[2021-04-21] MEDS: 0.9 % Sodium Chloride 1,000 ML 75 ML IVCONT (10:36)
[2021-04-21] MEDS: Valproic Acid 250 MG CAPSULE PO (11:41)
[2021-04-21 18:00] VITALS: BP 152/89; PULSE 78; RESP 16; TEMP 37.2; O2SAT 94
--- NOTE | 2021-04-21 18:21 | PC.NURSE ---
Pt asleep for most of the day, no seizure activity noted. The pt had a bedding/brief change around 1700, pt subsequently woke and ate some vanilla ice cream and drank about 6oz of water via straw, no choking/coughing noted. Sitter in place at bedside during the day. Pt safety maintained. Pt noted to have bruising to right hand, and slight bruising to left shoulder.
--- NOTE | 2021-04-21 18:49 | PM.NEUROPN ---
Subjective Subjective Date of Service: 04/21/21 Interval History: The patient offers no complaints. She has had 2 generalized seizures in the last 24 hours and was given 500 mg total dose of valproic acid intravenously. Her last drug level was 79 about a week ago and has not since being checked. She has had no further seizures in the last 18 hours. She is alert pleasant and will occasionally follow one-step commands. She does not verbalize much. She has a background off TBI, dementia, and recent tonic clonic seizure. Johanna was lying down in bed with a 1:1 sitter, eyes open and listening to pleasant music, lights dimmed. Critical Care Time (minutes): 0 Physical Exam Vital Signs: Vital Signs: Last Vital Signs Temp 97.5 F 04/21/21 06:14 Pulse 68 04/21/21 06:14 Resp 16 04/21/21 06:14 BP 124/64 04/21/21 06:14 Pulse Ox 98 04/21/21 06:14 Oxygen Flow Rate 2 04/20/21 23:00 Neuro: Other: She is awake and alert will occasionally follow one-step commands. She does not verbalize. She will sometimes smile and sometimes she will cry. She moves all 4 extremities against gravity and her neck is supple. She has a flattening of the right nasolabial fold. Tongue protrudes in the midline. There are no obvious visual field deficits. Progress Note: A&P Assessment and plan (1) Subdural hematoma: Status: Acute Assessment and Plan: Stable 2 mm right subdural hematoma with some fresh blood and some layering because of pre-existing small chronic subdural. No mass effect. No intervention necessary. (2) Seizure disorder: Status: Acute Assessment and Plan: Two breakthrough seizures. Recommendation: Check valproic acid level today. If seizures recur in spite of a high therapeutic level of valproic acid in excess of 80 micrograms/mL, then I would add Keppra IV 1 g b.i.d.. To be switched to p.o. when the patient is able to take it. (3) Major neurocognitive disorder as late effect of traumatic brain injury without behavioral disturbance: Status: Acute (4) TBI (traumatic brain injury): Status: Acute Assessment and Plan: The patient is a middle-aged female with a long history of dementia, most likely vascular as [facility], referred from her [facility] for violent behavior. She was admitted initially to this facility and later she had to be transferred to Medicine due to a subdural hematoma after seizure. Currently, she is medically cleared as per medical team. Plan 1. Continue with same treatment Fall Risk Details Current Medications: Current Medications Acetaminophen (Acetaminophen Supp 650 Mg Supp.Rect) 650 mg [place] Q6H PRN PRN Reason: Pain, Mild (Pain Scale 1-3) Al Hydroxide/Mg Hydroxide (Magnesium Hydrox/Alum Hydrox 30 Ml Oral.Susp) 30 ml PO Q6H PRN PRN Reason: Heartburn/Nausea Hydroxyzine HCl (Hydroxyzine Hcl 25 Mg Tablet) 25 mg PO BEDTIME PRN PRN Reason: Anxiety Sodium Chloride (Ns) 1,000 mls @ 75 mls/hr IVCONT .[id number] [facility] Last Admin: 04/21/21 10:36 Dose: 75 mls/hr Documented by: [place] Carbonate ([place] Carbonate 300 Mg Tablet) 450 mg PO BID [facility] Last Admin: 04/21/21 10:34 Dose: Not Given Documented by: Lorazepam (Lorazepam 2 Mg/Ml Vial) 2 mg IVPUSH Q6H PRN PRN Reason: seizure Last Admin: 04/21/21 09:02 Dose: 2 mg Documented by: Lorazepam (Lorazepam 2 Mg/Ml Vial) 1 mg IVPUSH Q2H PRN PRN Reason: Seizures Last Admin: 04/21/21 04:06 Dose: 1 mg Documented by: Magnesium Hydroxide (Milk Of Magnesia 30 Ml Oral.Susp) 30 ml PO DAILY PRN PRN Reason: Constipation Olanzapine (Olanzapine 5 Mg Tablet) 5 mg PO Q4H PRN PRN Reason: agitation Last Admin: 04/20/21 15:32 Dose: 5 mg Documented by: Sodium Chloride (0.9 % Sodium Chloride Flush 3 Ml Syringe) 3 ml IVFLUSH QSHIFT [facility] Last Admin: 04/21/21 07:56 Dose: Not Given Documented by: Trazodone HCl (Trazodone Hcl 50 Mg Tablet) 50 mg PO BEDTIME PRN PRN Reason: Insomnia Valproic Acid (Valproic Acid (As Sodium Salt) 250 Mg/5 Ml Solution) 250 mg PO DAILY [facility] Valproic Acid (Valproic Acid (As Sodium Salt) 250 Mg/5 Ml Solution) 375 mg PO BEDTIME [facility] Time Spent With Patient Time: Total time spent is greater than 50% in coordination of care (as documented) at patient's floor/unit and/or counseling patient: Time with patient: 15 - 24 minutes Procedures Date of Service Date of Service: 04/21/21 Quality Stroke Does the patient have a stroke diagnosis?: No VTE Prior VTE?: No VTE Risk Level:: Medical - moderate - high VTE Device Contraindication: Treatment Not Indicated VTE Drug Contraindication: Treatment Not Indicated
--- NOTE | 2021-04-21 19:57 | PC.NURSE ---
This assembly instructions writer paged hospitalist due to order for stat consult due to PT unable to take pills po, PT appears to be agitated and in pain at times. PT having tic like seizure activity at 7:30 pm ativan 2mg given by IV push, tolerated well. Nursing sewing department supervisor notified as well.
[2021-04-21 22:31] VITALS: RESP 16
[2021-04-21] MEDS: Morphine Sulfate 2 MG/ML CARTRIDGE 1 MG IVPUSH (22:31)
[2021-04-21 22:44] LABS: Valproate 87.6 mcg/mL (50.0-100.0)
[2021-04-22] MEDS: 0.9 % Sodium Chloride 1,000 ML 75 ML IVCONT ×2 (00:32→15:51)
[2021-04-22 06:00] VITALS: BP 120/60; PULSE 60; TEMP 37.1; O2SAT 98
[2021-04-22] MEDS: Morphine Sulfate 2 MG/ML CARTRIDGE 1 MG IVPUSH (06:46)
--- NOTE | 2021-04-22 07:26 | HO.PSYCHPN ---
Subjective Subjective Date of Service: 04/22/21 Reason For Visit: Psychosis Interim History: 04/21:Neuro:The patient offers no complaints. She has had 2 generalized seizures in the last 24 hours and was given 500 mg total dose of valproic acid intravenously. Her last drug level was 79 about a week ago and has not since being checked. She has had no further seizures in the last 18 hours. She is alert pleasant and will occasionally follow one-step commands. She does not verbalize much. She has a background off TBI, dementia, and recent tonic clonic seizure. Johanna was lying down in bed with a 1:1 sitter, eyes open and listening to pleasant music, lights dimmed. 04/21: H and P reviewed. Case DW RN and Bell Hole Digger. : Had 2 Sz in past 24 hours. IV VPA given. I added liquid VPA and asked for Neuro F/U. Appreciate Neuro feedback. HCP wants a few more days of observation for her to stabilize. Defer EQUINE VET/Hospice. Later was agitated and c/o Rt shoulder pain. Hospitalist ordered IV Morphine as PO not possible.Pt was resting comfortably 04/22: Better 24 hours. No Sz. Less troubled by pain. No shoulder asymmetry. Also raised Rt arm over shoulder. On OV Morphine PRN. PO intake better. Will check VPA level tomorrow though premature. Ensure TID Medication Compliance: Yes Side effects from medications: No Attending Groups: No Review of Systems Acute medical concerns: Yes Sz Mental Status Exam Mental Status Exam Patient Appearance: Well Grooomed (Of hospital gowns) Patient Orientation: Person Level of Consciousness: Awake, Disoriented and Restless Patient Behavior: Restless and Anxious Mood Description: Depressed Affect Description: Labile Patient Cognition Impaired: Yes Ability to Follow Directions: Fair Speech Pattern: Impoverished Diagnostics Vital Signs (24Hr): Vital Signs - 24 hr 04/21/21 18:00 04/21/21 22:31 Temperature 99 F Pulse Rate 78 Respiratory Rate 16 16 Blood Pressure 152/89 H Pulse Oximetry 94 Labs Labs: Laboratory Results - last 48 hr 04/21/21 22:10 Valproic Acid 87.6 Medications Medications Current Medications Acetaminophen (Acetaminophen Supp 650 Mg Supp.Rect) 650 mg [place] Q6H PRN PRN Reason: Pain, Mild (Pain Scale 1-3) Al Hydroxide/Mg Hydroxide (Magnesium Hydrox/Alum Hydrox 30 Ml Oral.Susp) 30 ml PO Q6H PRN PRN Reason: Heartburn/Nausea Hydroxyzine HCl (Hydroxyzine Hcl 25 Mg Tablet) 25 mg PO BEDTIME PRN PRN Reason: Anxiety Sodium Chloride (Ns) 1,000 mls @ 75 mls/hr IVCONT .[id number] [facility] Last Admin: 04/22/21 00:32 Dose: 75 mls/hr Documented by: [place] Carbonate ([place] Carbonate 300 Mg Tablet) 450 mg PO BID [facility] Last Admin: 04/21/21 21:57 Dose: Not Given Documented by: Lorazepam (Lorazepam 2 Mg/Ml Vial) 2 mg IVPUSH Q6H PRN PRN Reason: seizure Last Admin: 04/21/21 19:30 Dose: 2 mg Documented by: Lorazepam (Lorazepam 2 Mg/Ml Vial) 1 mg IVPUSH Q2H PRN PRN Reason: Seizures Last Admin: 04/21/21 04:06 Dose: 1 mg Documented by: Magnesium Hydroxide (Milk Of Magnesia 30 Ml Oral.Susp) 30 ml PO DAILY PRN PRN Reason: Constipation Morphine Sulfate (Morphine Sulfate 2 Mg/Ml Cartridge) 1 mg IVPUSH Q6H PRN; Protocol PRN Reason: Breakthrough Pain Last Admin: 04/22/21 06:46 Dose: 1 mg Documented by: Olanzapine (Olanzapine 5 Mg Tablet) 5 mg PO Q4H PRN PRN Reason: agitation Last Admin: 04/20/21 15:32 Dose: 5 mg Documented by: Sodium Chloride (0.9 % Sodium Chloride Flush 3 Ml Syringe) 3 ml IVFLUSH QSHIFT [facility] Last Admin: 04/22/21 00:36 Dose: Not Given Documented by: Trazodone HCl (Trazodone Hcl 50 Mg Tablet) 50 mg PO BEDTIME PRN PRN Reason: Insomnia Valproic Acid (Valproic Acid (As Sodium Salt) 250 Mg/5 Ml Solution) 250 mg PO DAILY [facility] Valproic Acid (Valproic Acid (As Sodium Salt) 250 Mg/5 Ml Solution) 375 mg PO BEDTIME [facility] Last Admin: 04/21/21 19:28 Dose: 375 mg Documented by: Allergies Allergies Allergy/AdvReac Type Severity Reaction Status Date / Time No Known Allergies Allergy Verified 04/11/21 20:47 Assessment & Plan Assessment & Plan (1) Subdural hematoma: Status: Acute Code(s): S06.5X9A - Traumatic subdural hemorrhage with loss of consciousness of unspecified duration, initial encounter (2) Seizure disorder: Status: Acute Code(s): G40.909 - Epilepsy, unspecified, not intractable, without status epilepticus (3) Major neurocognitive disorder as late effect of traumatic brain injury without behavioral disturbance: Status: Acute Code(s): S06.9X9S - Unspecified intracranial injury with loss of consciousness of unspecified duration, sequela; F02.80 - Dementia in other diseases classified elsewhere without behavioral disturbance (4) TBI (traumatic brain injury): Status: Acute Code(s): S06.9X9A - Unspecified intracranial injury with loss of consciousness of unspecified duration, initial encounter Assessment and Plan: The patient is a middle-aged female with a long history of dementia, most likely vascular as [facility], referred from her [facility] for violent behavior. She was admitted initially to this facility and later she had to be transferred to Medicine due to a subdural hematoma after seizure. Currently, she is medically cleared as per medical team. Plan 1. Continue with same treatment . No EQUINE VET for now. Ct liason with HCP and Case Mgmt. Hospitalist PRN. Greater than 50% of the session was spent on counseling and/or coordination of care Reason for contiued inpatient stay Substantial Risk for: med/psych decompensation
[2021-04-22] MEDS: LORazepam 2 MG/ML VIAL IVPUSH (10:39)
[2021-04-22 16:20] VITALS: BP 146/84; PULSE 75; RESP 14; TEMP 36.4; O2SAT 98
[2021-04-22] MEDS: LORazepam 2 MG/ML VIAL 1 MG IVPUSH ×2 (17:26→22:11)
--- NOTE | 2021-04-22 17:26 | PC.NURSE ---
Patient loss IV access at 1600. Nursing supervisor boatbuilders wood reestablished IV access at 1710 in left upper inner arm. 0.9% Normal Saline running at 75ml/hr.
[2021-04-22 18:00] VITALS: BP 146/97; PULSE 80; RESP 16; TEMP 36.6; O2SAT 97
[2021-04-22] MEDS: Lithium Carbonate 300 MG TABLET 450 MG PO (20:48)
[2021-04-23 08:03] VITALS: BP 137/75; PULSE 68; RESP 18; TEMP 36.1; O2SAT 97
[2021-04-23] MEDS: Lithium Carbonate 300 MG TABLET 450 MG PO ×2 (08:13→20:11)
[2021-04-23] MEDS: OLANZapine 5 MG TABLET PO (08:14)
[2021-04-23] MEDS: LORazepam 2 MG/ML VIAL 1 MG IVPUSH (08:15)
[2021-04-23 09:00] LABS: Valproate 72.2 mcg/mL (50.0-100.0)
[2021-04-23] MEDS: 0.9 % Sodium Chloride Flush 3 ML SYRINGE IVFLUSH (09:05)
[2021-04-23] MEDS: Lidocaine 4 % Patch ADH..PATCH 1 PATCH TRANSDERMA (11:12)
--- NOTE | 2021-04-23 11:36 | PC.NURSE ---
Skin assessment completed. Patient has marylu in head from a fall, intact and clean. Patient has small areas of blanchable redness to bilateral buttocks. EPC cream applied.
--- NOTE | 2021-04-23 11:41 | PM.NEUROPN ---
Subjective Subjective Date of Service: 04/23/21 Interval History: 04/21:Neuro:The patient offers no complaints. She has had 2 generalized seizures in the last 24 hours and was given 500 mg total dose of valproic acid intravenously. Her last drug level was 79 about a week ago and has not since being checked. She has had no further seizures in the last 18 hours. She is alert pleasant and will occasionally follow one-step commands. She does not verbalize much. She has a background off TBI, dementia, and recent tonic clonic seizure. Johanna was lying down in bed with a 1:1 sitter, eyes open and listening to pleasant music, lights dimmed. 04/21: H and P reviewed. Case DW RN and Aircraft Magneto Mechanic. : Had 2 Sz in past 24 hours. IV VPA given. I added liquid VPA and asked for Neuro F/U. Appreciate Neuro feedback. HCP wants a few more days of observation for her to stabilize. 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 Later was agitated and c/o Rt shoulder pain. Hospitalist ordered IV Morphine as PO not possible.Pt was resting comfortably 04/22: Better 24 hours. No Sz. Less troubled by pain. No shoulder asymmetry. Also raised Rt arm over shoulder. On OV Morphine PRN. PO intake better. Will check VPA level tomorrow though premature. Ensure TID Critical Care Time (minutes): 0 Physical Exam Vital Signs: Vital Signs: Last Vital Signs Temp 97.0 F 04/23/21 08:03 Pulse 68 04/23/21 08:03 Resp 18 04/23/21 08:03 BP 137/75 04/23/21 08:03 Pulse Ox 97 04/23/21 08:03 Oxygen Flow Rate 2 04/20/21 23:00 Neuro: Other: She is awake and alert will occasionally follow one-step commands. She does not verbalize. She will sometimes smile and sometimes she will cry. She moves all 4 extremities against gravity and her neck is supple. She has a flattening of the right nasolabial fold. Tongue protrudes in the midline. There are no obvious visual field deficits. Objective Data Labs Labs: Laboratory Results - last 24 hr 04/23/21 07:55 Valproic Acid 72.2 Progress Note: A&P Assessment and plan (1) Subdural hematoma: Status: Acute Assessment and Plan: observe. No intervention (2) Seizure disorder: Status: Acute Assessment and Plan: Valproic acid level mid to high therapeutic. If she has any more Sz, would add Keppra 1gm bid . If patient is unable to take her meds po the depakote can be switched to the same dose Depacon IV and so also if there is need to add Keppr a, it can be given IV. (3) Major neurocognitive disorder as late effect of traumatic brain injury without behavioral disturbance: Status: Acute (4) TBI (traumatic brain injury): Status: Acute Assessment and Plan: The patient is a middle-aged female with a long history of dementia, most likely vascular as [facility], referred from her [facility] for violent behavior. She was admitted initially to this facility and later she had to be transferred to Medicine due to a subdural hematoma after seizure. Currently, she is medically cleared as per medical team. Plan 1. Continue with same treatment . No SENIOR BOILER OPERATOR for now. Ct liason with HCP and Case Mgmt. Hospitalist PRN. Fall Risk Details Current Medications: Current Medications Acetaminophen (Acetaminophen Supp 650 Mg Supp.Rect) 650 mg [place] Q6H PRN PRN Reason: Pain, Mild (Pain Scale 1-3) Al Hydroxide/Mg Hydroxide (Magnesium Hydrox/Alum Hydrox 30 Ml Oral.Susp) 30 ml PO Q6H PRN PRN Reason: Heartburn/Nausea Hydroxyzine HCl (Hydroxyzine Hcl 25 Mg Tablet) 25 mg PO BEDTIME PRN PRN Reason: Anxiety Sodium Chloride (Ns) 1,000 mls @ 75 mls/hr IVCONT .[id number] [facility] Last Infusion: 04/23/21 07:45 Dose: Infused Documented by: Lidocaine (Lidocaine 4 % Patch Adh..Patch) 1 patch TRANSDERMA DAILY [facility]; Protocol Last Admin: 04/23/21 11:12 Dose: 1 patch Documented by: [place] Carbonate ([place] Carbonate 300 Mg Tablet) 450 mg PO BID [facility] Last Admin: 04/23/21 08:13 Dose: 450 mg Documented by: Lorazepam (Lorazepam 2 Mg/Ml Vial) 1 mg IVPUSH Q2H PRN PRN Reason: Seizures Last Admin: 04/23/21 08:15 Dose: 1 mg Documented by: Lorazepam (Lorazepam 2 Mg/Ml Vial) 1 mg IVPUSH Q6H PRN PRN Reason: agitation. Use sparingly Last Admin: 04/22/21 22:11 Dose: 1 mg Documented by: Magnesium Hydroxide (Milk Of Magnesia 30 Ml Oral.Susp) 30 ml PO DAILY PRN PRN Reason: Constipation Morphine Sulfate (Morphine Sulfate 2 Mg/Ml Cartridge) 1 mg IVPUSH Q6H PRN; Protocol PRN Reason: Breakthrough Pain Last Admin: 04/22/21 06:46 Dose: 1 mg Documented by: Olanzapine (Olanzapine 5 Mg Tablet) 5 mg PO Q4H PRN PRN Reason: agitation Last Admin: 04/23/21 08:14 Dose: 5 mg Documented by: Sodium Chloride (0.9 % Sodium Chloride Flush 3 Ml Syringe) [facility] Last Admin: 04/23/21 09:05 Dose: 3 ml Documented by: Trazodone HCl (Trazodone Hcl 50 Mg Tablet) 50 mg PO BEDTIME PRN PRN Reason: Insomnia Valproic Acid (Valproic Acid (As Sodium Salt) 250 Mg/5 Ml Solution) 250 mg PO DAILY [facility] Last Admin: 04/23/21 08:14 Dose: 250 mg Documented by: Valproic Acid (Valproic Acid (As Sodium Salt) 250 Mg/5 Ml Solution) 375 mg PO BEDTIME [facility] Last Admin: 04/22/21 20:48 Dose: 375 mg Documented by: Time Spent With Patient Time: Total time spent is greater than 50% in coordination of care (as documented) at patient's floor/unit and/or counseling patient: Time with patient: less than 15 minutes Procedures Date of Service Date of Service: 04/23/21 Quality Stroke Does the patient have a stroke diagnosis?: No VTE Prior VTE?: No VTE Risk Level:: Medical - moderate - high VTE Device Contraindication: Treatment Not Indicated VTE Drug Contraindication: Treatment Not Indicated
--- NOTE | 2021-04-23 12:06 | P.EN_ITS ---
Event Note Date of Service: 04/23/21 Event Note: Patient has a laceration to the back of the scalp repaired with st aples 04/16/21. Hospitalist was consulted for staple removal. Raquel removed, wound well-approximated, no signs of infection.
--- NOTE | 2021-04-23 12:24 | MHC.CM.PN ---
Addendum entered by Trisha Traore 04/23/21 16:31: [facility] PALLIATIVE CARE TEAM IS REVIEWING PTS RECORDS TO DETERMINE IF THEY CAN PROVIDE SERVICES. CM DID LEAVE A MESSAGE FOR PTS DAUGHTER EXPLAINING WHAT PALLIATIVE CARE WOULD PROVIDE AND REQUESTING A RETURN CALL TO DISCUSS HER INTEREST IN THE SERVICES. CM HAS NOT RECEIVED A RETURN CALL OF YET. Addendum entered by Trisha Traore 04/23/21 14:37: VM MESSAGE LEFT FOR PTS DAUGHTER OTTO INFORMING HER OF NEW REFERRAL TO [facility] PALLIATIVE AND EXPLAINING EXACTLY WHAT WOULD BE OFFERED. CM CONTACT INFO LEFT WITH REQUEST FOR RETURN CALL. Addendum entered by Trisha Traore 04/23/21 14:22: CM SPOKE TO [facility] LIAISON WHO REPORTS AFTER SPEAKING WITH THE DIRECTOR, THEY WOULD BE UNABLE TO ACCEPT THE PT INTO THEIR PALLIATIVE PROGRAM THEY ARE ONLY TAKING METASTATIC [place] PTS AT THIS TIME. SHE ALSO PROVIDED MORE DETAIL REGARDING WHAT SERVICES ARE OFFERED WITH PALLIATIVE CARE. CM SENT A REFERRAL TO [facility] PALLIAITIVE BUT WILL ALSO CALL PTS DAUGHTER TO EXPLORE IF THIS IS SOMETHING SHE IS INTERESTED IN PT WOULD NEED A 24/02 CAREGIVER. Original Note: CM INFORMED PTS DAUGHTER WAS INTERESTED IN EXPLORING PALLIATIVE CARE SERVICES. CM CALLED PTS DAUGHTER/HCP, OTTO ([phone]). OTTO REPORTS THE HOPE IS THAT THE PT CAN RETURN TO THE [facility] UPON DISCHARGE AND SHE WAS HOPING FOR A BEDSIDE EVAL FOR PALLIATIVE CARE SERVICES. CM EXPLAINED PALLIATIVE CARE IS USUALLY LIKE A [facility] REFERRAL AND THEREFORE, THEY DO NOT TYPICALLY DO A BEDSIDE EVAL. OTTO ASKED IF THE SERVICES WOULD OFFER A 1:1. CM EXPLAINED THEY DO NOT OFFER SITTERS, COMPANIONS, OR PERSONAL CARE, THEY ARE TYPICALLY LIKE [facility] SERVICES EXCEPT WITH A LEVEL OF COMFORT CARE. CM OFFERED TO HAVE SOMEONE FROM THE [facility] CONTACT HER TO EXPLAIN EXACTLY WHAT PALLIATIVE CARE LOOKS LIKE AND OTTO WAS HAPPY WITH THIS. CM DID AGREE TO MAKE A REFERRAL FOR THE SERVICES IN THE EVENT SHE DECIDES TO ACCEPT THEM. OTTO ASKED FOR A REFERRAL TO [facility]. REFERRAL TO [facility], NOT YET ACCEPTED. CM WILL FOLLOW AND MAKE OTHER PALLIATIVE CARE REFERRALS IF NEEDED. ONCE AN AGENCY IS SECURED, CM WILL ADD IT TO PTS DC.
--- NOTE | 2021-04-23 13:30 | HO.PSYCHPN ---
Subjective Subjective Date of Service: 04/23/21 Reason For Visit: Psychosis Subjective Notes: Conditional Voluntary Interim History: The nurses staff reported that today the morning and she looked much better, the last 48 hours she had have seizures and she had being very sedated. Over the weekend, she got an IV line to get Depakote IV and Ativan IV. We have a family meeting with his daughter who signed the conditional voluntary papers and the healthcare proxy was invoked. We discussed about her prognosis and we have called palliative care to take care of her. On interview, the patient was sleeping, according to one-to-one staff she has been sleeping most of the time. Mental Status Exam Mental Status Exam Patient Appearance: Fatigued Level of Consciousness: Drowsy Patient Behavior: Passive Mood Description: Suspicious and Withdrawn Affect Description: Withdrawn Patient Cognition Impaired: Yes Ability to Follow Directions: Fair Speech Pattern: Slurred Hallucinations: None Thought Process: Confusion Thought Content: positive for Preoccupation Judgement: Poor Diagnostics Vital Signs (24Hr): Vital Signs - 24 hr 04/22/21 16:20 04/22/21 18:00 04/23/21 08:03 Temperature 97.5 F 97.8 F 97.0 F Pulse Rate 75 80 68 Respiratory Rate 14 16 18 Blood Pressure 146/84 H 146/97 H 137/75 Pulse Oximetry 98 97 97 Labs Labs: Laboratory Results - last 48 hr 04/21/21 04/23/21 22:10 07:55 Valproic Acid 87.6 72.2 Medications Medications Current Medications Acetaminophen (Acetaminophen Supp 650 Mg Supp.Rect) 650 mg [place] Q6H PRN PRN Reason: Pain, Mild (Pain Scale 1-3) Acetaminophen (Acetaminophen 325 Mg Tablet) 650 mg PO Q4H PRN PRN Reason: Pain, Moderate (Pain Scale 4-6 Al Hydroxide/Mg Hydroxide (Magnesium Hydrox/Alum Hydrox 30 Ml Oral.Susp) 30 ml PO Q6H PRN PRN Reason: Heartburn/Nausea Hydroxyzine HCl (Hydroxyzine Hcl 25 Mg Tablet) 25 mg PO BEDTIME PRN PRN Reason: Anxiety Sodium Chloride (Ns) 1,000 mls @ 75 mls/hr IVCONT .[id number] Last Infusion: 04/23/21 07:45 Dose: Infused Documented by: Lidocaine (Lidocaine 4 % Patch Adh..Patch) 1 patch TRANSDERMA DAILY [facility]; Protocol Last Admin: 04/23/21 11:12 Dose: 1 patch Documented by: [place] Carbonate ([place] Carbonate 300 Mg Tablet) 450 mg PO BID [facility] Last Admin: 04/23/21 08:13 Dose: 450 mg Documented by: Lorazepam (Lorazepam 2 Mg/Ml Vial) 1 mg IVPUSH Q2H PRN PRN Reason: Seizures Last Admin: 04/23/21 08:15 Dose: 1 mg Documented by: Lorazepam (Lorazepam 2 Mg/Ml Vial) 1 mg IVPUSH Q6H PRN PRN Reason: agitation. Use sparingly Last Admin: 04/22/21 22:11 Dose: 1 mg Documented by: Magnesium Hydroxide (Milk Of Magnesia 30 Ml Oral.Susp) 30 ml PO DAILY PRN PRN Reason: Constipation Morphine Sulfate (Morphine Sulfate 2 Mg/Ml Cartridge) 1 mg IVPUSH Q6H PRN; Protocol PRN Reason: Breakthrough Pain Last Admin: 04/22/21 06:46 Dose: 1 mg Documented by: Olanzapine (Olanzapine 5 Mg Tablet) 5 mg PO Q4H PRN PRN Reason: agitation Last Admin: 04/23/21 08:14 Dose: 5 mg Documented by: Sodium Chloride (0.9 % Sodium Chloride Flush 3 Ml Syringe) 3 ml IVFLUSH [facility] Last Admin: 04/23/21 09:05 Dose: 3 ml Documented by: Trazodone HCl (Trazodone Hcl 50 Mg Tablet) 50 mg PO BEDTIME PRN PRN Reason: Insomnia Valproic Acid (Valproic Acid (As Sodium Salt) 250 Mg/5 Ml Solution) 250 mg PO DAILY [facility] Last Admin: 04/23/21 08:14 Dose: 250 mg Documented by: Valproic Acid (Valproic Acid (As Sodium Salt) 250 Mg/5 Ml Solution) 375 mg PO BEDTIME [facility] Last Admin: 04/22/21 20:48 Dose: 375 mg Documented by: Allergies Allergies Allergy/AdvReac Type Severity Reaction Status Date / Time No Known Allergies Allergy Verified 04/11/21 20:47 Assessment & Plan Assessment & Plan (1) Subdural hematoma: Status: Acute Code(s): S06.5X9A - Traumatic subdural hemorrhage with loss of consciousness of unspecified duration, initial encounter Assessment and Plan: observe. No intervention (2) Seizure disorder: Status: Acute Code(s): G40.909 - Epilepsy, unspecified, not intractable, without status epilepticus Assessment and Plan: Valproic acid level mid to high therapeutic. If she has any more Sz, would add Keppra 1gm bid . If patient is unable to take her meds po the depakote can be switched to the same dose Depacon IV and so also if there is need to add Keppr a, it can be given IV. (3) Major neurocognitive disorder as late effect of traumatic brain injury without behavioral disturbance: Status: Acute Code(s): S06.9X9S - Unspecified intracranial injury with loss of consciousness of unspecified duration, sequela; F02.80 - Dementia in other diseases classified elsewhere without behavioral disturbance (4) TBI (traumatic brain injury): Status: Acute Code(s): S06.9X9A - Unspecified intracranial injury with loss of consciousness of unspecified duration, initial encounter Assessment and Plan: The patient is a middle-aged female with a long history of dementia, most likely vascular as [facility], referred from her [facility] for violent behavior. She was admitted initially to this facility and later she had to be transferred to Medicine due to a subdural hematoma after seizure. Currently, she is medically cleared as per medical team. Plan 1. Continue with same treatment . No MAMMOGRAPHY TECHNOLOGIST for now. Ct liason with HCP and Case Mgmt. Hospitalist PRN. 2. CT scan for tomorrow. 3. . Palliative care consult Greater than 50% of the session was spent on counseling and/or coordination of care Reason for contiued inpatient stay Substantial Risk for: inability to function, rapid decompensation and med/psych decompensation
[2021-04-23 13:55] VITALS: BMI 22.7
[2021-04-23] MEDS: Acetaminophen 325 MG TABLET 650 MG PO (16:31)
[2021-04-23 17:56] LABS: Appearance Urine CLEAR; Color Urine YELLOW; Glucose Urine UA NEG (NEG); Leukocyte Esterase Urine NEG (NEG); Nitrite Urine NEG (NEG); Specific Gravity - Urine 1.015 (1.005-1.025); Urine Blood NEG (NEG); Urine Ketones 15 MG/DL (NEG); Urine Protein NEG (NEG-TRACE)
[2021-04-23 18:28] LABS: Bacteria Urine 1+ /LPF; RBC Urine 0 /HPF (0); Squamous Epithelial Cell Urine 1+ /LPF; WBC Urine 0 /HPF (0-4)
[2021-04-23 19:55] VITALS: BP 123/76; PULSE 86; RESP 16; TEMP 36.8; O2SAT 96
[2021-04-24] MEDS: Acetaminophen 325 MG TABLET 650 MG PO ×3 (02:51→16:01)
[2021-04-24 07:02] LABS: Valproate 69.7 mcg/mL (50.0-100.0)
[2021-04-24] MEDS: Lithium Carbonate 300 MG TABLET 450 MG PO (07:52)
[2021-04-24] MEDS: OLANZapine 5 MG TABLET PO (07:52)
[2021-04-24] MEDS: Lidocaine 4 % Patch ADH..PATCH 1 PATCH TRANSDERMA (07:53)
[2021-04-24 12:21] VITALS: BP 145/75; PULSE 67; RESP 16; TEMP 36.4; O2SAT 98
--- NOTE | 2021-04-24 13:18 | MHC.CM.PN ---
when i visited patient today she was sitting at table in common area eating breakfast c staff at her side. the r.n. said she had an uneventful night. staff is aware that i am available at x [phone] for any dc needs. dc plan at this time is to return to [facility] possibly c palliative care via [facility] home health and hospice. cm to cont. to follow.
--- NOTE | 2021-04-24 14:07 | PC.NURSE ---
Addendum entered by Fabienne Dugan RN 04/24/21 18:10: Patient is strong two staff assist for brief changes and personal care. Requires verbal and physical prompting for changing positions and ambulating. Patient provided personal care and position changes q2H. Rash to buttocks improved with EPC cream application, almost non-existent at this time. Patient utilizing Tylenol for continued Right Shoulder Pain; patient grimacing and saying Ow during repositioning. Patient ate full Vanilla Pudding cup. Patient awake and ambulated to dayroom at 4:30pm. Patient engaging with Peers: waving and smiling, saying Hi. Patient sat at table in Dayroom with staff and daughter Cherri during meal time; did not eat any dinner. Completed Range of motion exercise with Right arm; Full Range of motion noted. Patient stated she needed to use toilet, ambulated to toilet and voided without incontinence. Original Note: Patient is on S1 Geriatric Psych on CV signed by Health Care Proxy. Patient is a 2 staff assist with gait belt while changing positions and ambulating. Patient is taking medications crushed in applesauce or pudding. Patient spends majority of shift resting in bed. Patient is repositioned and provided with personal care q2h. On 04/23/20 patient was resting in deep sleep throughout the day. She was awake/up and pleasant with staff from 4pm-6pm; ambulated to Dayroom, ate less than 25% of peanut butter and Jelly sandwich, yogurt, juice. She sat up for brief period of time to watch television and then returned to bed to rest. [place] were removed from back of patient's head by Anant Mcmahon. Patient mildly agitated throughout procedure but recovered well. Patient noted to have Dark Tea Colored urine; sample obtained and sent to lab for U/A. Results came back Negative. On 04/24/21 Patient was awakened by staff at 7:30am for personal care and toileting. Patient was assisted to Dayroom for breakfast, again consuming less than 25% of yogurt and juice. Patient was assisted back to room to rest after she fell asleep sitting up in dayroom chair. Patient mildly agitated with staff during personal care routine; brief change. Yelling at staff Stop and God Damn It
--- NOTE | 2021-04-24 14:50 | P.PNPSI_ITS ---
Subjective Subjective Date of Service: 04/24/21 Reason For Visit: Psychosis Subjective Notes: Conditional Voluntary Interim History: The nursing staff reported the patient slept well. Today in the morning she was ambulatory, she was a little ?grumpy? but able to be directed. On interview, the patient was pleasantly confused she denied new symptoms. Blood work showed a lithium with therapeutic levels and Depakote the same. Medication Compliance: Yes Review of Systems Medical Review of Systems: unchanged Mental Status Exam Mental Status Exam Patient Appearance: Well Grooomed (On hospital gowns) Patient Orientation: Person Level of Consciousness: Awake, Drowsy and Sedated Patient Behavior: Cooperative Mood Description: Constricted Affect Description: Depressed Patient Cognition Impaired: Yes Ability to Follow Directions: Fair Speech Pattern: Clear Hallucinations: None Delusions: Not Present Thought Process: Illogical and Evasive Thought Content: positive for Poverty of Content Judgement: Poor Diagnostics Vital Signs (24Hr): Vital Signs - 24 hr 04/23/21 19:55 04/24/21 12:21 Temperature 98.3 F 97.5 F Pulse Rate 86 67 Respiratory Rate 16 16 Blood Pressure 123/76 145/75 H Pulse Oximetry 96 98 Body Mass Index 22.7 Labs Labs: Laboratory Results - last 48 hr 04/23/21 04/23/21 04/24/21 07:55 17:35 06:22 Urine Color YELLOW Urine Appearance CLEAR Urine pH 6.0 Ur Specific [place] 1.015 Urine Protein NEG Urine Glucose (UA) NEG Urine Ketones 15 Urine Blood NEG Urine Nitrite NEG Ur Leukocyte Esterase NEG Urine RBC 0 Urine WBC 0 Ur Squamous Epith Cells 1+ Urine Bacteria 1+ Valproic Acid 72.2 69.7 [place] 04/24/21 06:22 Urine Color Urine Appearance Urine pH Ur Specific [place] Urine Protein Urine Glucose (UA) Urine Ketones Urine Blood Urine Nitrite Ur Leukocyte Esterase Urine RBC Urine WBC Ur Squamous Epith Cells Urine Bacteria Valproic Acid [place] 1.00 Medications Medications Current Medications Acetaminophen (Acetaminophen Supp 650 Mg Supp.Rect) 650 mg [place] Q6H PRN PRN Reason: Pain, Mild (Pain Scale 1-3) Acetaminophen (Acetaminophen 325 Mg Tablet) 650 mg PO Q4H PRN PRN Reason: Pain, Moderate (Pain Scale 4-6 Last Admin: 04/24/21 07:53 Dose: 650 mg Documented by: Al Hydroxide/Mg Hydroxide (Magnesium Hydrox/Alum Hydrox 30 Ml Oral.Susp) 30 ml PO Q6H PRN PRN Reason: Heartburn/Nausea Hydroxyzine HCl (Hydroxyzine Hcl 25 Mg Tablet) 25 mg PO BEDTIME PRN PRN Reason: Anxiety Lidocaine (Lidocaine 4 % Patch Adh..Patch) 1 patch TRANSDERMA DAILY [facility]; Protocol Last Admin: 04/24/21 07:53 Dose: 1 patch Documented by: [place] Carbonate ([place] Carbonate 300 Mg Tablet) 450 mg PO BID [facility] Last Admin: 04/24/21 07:52 Dose: 450 mg Documented by: Lorazepam (Lorazepam 2 Mg/Ml Vial) 1 mg IVPUSH Q2H PRN PRN Reason: Seizures Last Admin: 04/23/21 08:15 Dose: 1 mg Documented by: Lorazepam (Lorazepam 2 Mg/Ml Vial) 1 mg IVPUSH Q6H PRN PRN Reason: agitation. Use sparingly Last Admin: 04/22/21 22:11 Dose: 1 mg Documented by: Magnesium Hydroxide (Milk Of Magnesia 30 Ml Oral.Susp) 30 ml PO DAILY PRN PRN Reason: Constipation Morphine Sulfate (Morphine Sulfate 2 Mg/Ml Cartridge) 1 mg IVPUSH Q6H PRN; Protocol PRN Reason: Breakthrough Pain Last Admin: 04/22/21 06:46 Dose: 1 mg Documented by: Olanzapine (Olanzapine 5 Mg Tablet) 5 mg PO Q4H PRN PRN Reason: agitation Last Admin: 04/24/21 07:52 Dose: 5 mg Documented by: Sodium Chloride (0.9 % Sodium Chloride Flush 3 Ml Syringe) 3 ml IVFLUSH [facility] Last Admin: 04/24/21 08:09 Dose: Not Given Documented by: Trazodone HCl (Trazodone Hcl 50 Mg Tablet) 50 mg PO BEDTIME PRN PRN Reason: Insomnia Valproic Acid (Valproic Acid (As Sodium Salt) 250 Mg/5 Ml Solution) 250 mg PO DAILY [facility] Last Admin: 04/24/21 07:53 Dose: 250 mg Documented by: Valproic Acid (Valproic Acid (As Sodium Salt) 250 Mg/5 Ml Solution) 375 mg PO BEDTIME [facility] Last Admin: 04/23/21 20:13 Dose: 375 mg Documented by: Allergies Allergies Allergy/AdvReac Type Severity Reaction Status Date / Time No Known Allergies Allergy Verified 04/11/21 20:47 Assessment & Plan Assessment & Plan (1) Subdural hematoma: Status: Acute Code(s): S06.5X9A - Traumatic subdural hemorrhage with loss of consciousness of unspecified duration, initial encounter Assessment and Plan: observe. No intervention (2) Seizure disorder: Status: Acute Code(s): G40.909 - Epilepsy, unspecified, not intractable, without status epilepticus Assessment and Plan: Valproic acid level mid to high therapeutic. If she has any more Sz, would add Keppra 1gm bid . If patient is unable to take her meds po the depakote can be switched to the same dose Depacon IV and so also if there is need to add Keppr a, it can be given IV. (3) Major neurocognitive disorder as late effect of traumatic brain injury without behavioral disturbance: Status: Acute Code(s): S06.9X9S - Unspecified intracranial injury with loss of consciousness of unspecified duration, sequela; F02.80 - Dementia in other diseases classified elsewhere without behavioral disturbance (4) TBI (traumatic brain injury): Status: Acute Code(s): S06.9X9A - Unspecified intracranial injury with loss of consciousness of unspecified duration, initial encounter Assessment and Plan: The patient is a middle-aged female with a long history of dementia, most likely vascular as [facility], referred from her [facility] for violent behavior. She was admitted initially to this facility and later she had to be transferred to Medicine due to a subdural hematoma after seizure. Currently, she is medically cleared as per medical team. Plan 1. Continue with same treatment . No OTOLOGIST for now. Ct liason with HCP and Case Mgmt. Hospitalist PRN. 2. CT scan that showed no new findings 3. . Palliative care consult Greater than 50% of the session was spent on counseling and/or coordination of care Reason for contiued inpatient stay Substantial Risk for: inability to function, rapid decompensation and med/psych decompensation
[2021-04-24 20:10] VITALS: BP 157/77; PULSE 65; RESP 17; TEMP 36.3; O2SAT 98
[2021-04-24] MEDS: 0.9 % Sodium Chloride 500 ML 50 ML IV (22:30)
--- NOTE | 2021-04-25 00:18 | PC.NURSE ---
Patient reporting right shoulder pain, unwilling to take PO medications (PRN APAP and Scheduled HS meds) after multiple attempts. Notified OnCall Prescriber and IV Depacon D5W ordered; IV placed by Nursing Candy Waffle Assembler, Depacon 375mg administered via IV; NS running @50ml/hr. Once IV was placed offered IV pain meds and patient denied pain at that time. IV wrapped with gauze to deter patient from self-removal. Patient minimally verbal; delayed thought process, intermittently able to follow simple commands. 2 assist with gait belt to ambulate; Becomes easily irritated during personal care, staff attempting to explain the steps; patient yelling no , unable to follow instructions due to increased confusion. 1:1 Patient Observer with patient at all times, video monitoring in place.
[2021-04-25] MEDS: Morphine Sulfate 2 MG/ML CARTRIDGE 1 MG IVPUSH (01:01)
[2021-04-25] MEDS: LORazepam 2 MG/ML VIAL 1 MG IVPUSH (06:49)
[2021-04-25 09:11] VITALS: BP 119/74; PULSE 56; RESP 14; TEMP 36.8; O2SAT 99
[2021-04-25] MEDS: Lithium Carbonate 300 MG TABLET 450 MG PO ×2 (09:40→21:00)
--- NOTE | 2021-04-25 13:54 | MHC.CLN ---
F/U STAFF FED PATIENT LUNCH IN HER ROOM. ATE BITES ONLY. POOR APPETITE/INTAKE. SUPPLEMENT IN PLACE, ENSURE CLEAR 240 ML TID.
[2021-04-25] MEDS: Lidocaine 4 % Patch ADH..PATCH 1 PATCH TRANSDERMA (15:39)
[2021-04-25] MEDS: 0.9 % Sodium Chloride Flush 3 ML SYRINGE IVFLUSH ×2 (15:40→19:43)
[2021-04-25 16:23] LABS: Ammonia 20 umol/L (13-55)
[2021-04-25 16:26] LABS: Alanine Aminotransferase 11 U/L (0-31); Albumin Level 4.4 g/dL (3.5-5.0); Alkaline Phosphatase 89 U/L (39-117); Anion Gap 13 (12-20); Aspartate Amino Transferase 15 U/L (5-31); Bilirubin Total 0.9 mg/dL (0.0-1.0); Blood Urea Nitrogen 14 mg/dL (9-16); Calcium 10.1 mg/dL (8.4-10.2); Carbon Dioxide 28 mmol/L (22-29); Chloride 102 mmol/L (96-108); Creatinine Clr Calc Pharmacy 58.4; Estimated Glomerular Filt Rate 58; Glucose Random 159 mg/dL (60-115); Potassium 4.5 mmol/L (3.3-5.1); Sodium 138 mmol/L (135-145); Total Protein 7.3 g/dL (6.5-8.0)
[2021-04-25 16:49] LABS: Valproate 67.8 mcg/mL (50.0-100.0)
[2021-04-25 18:00] VITALS: BP 141/76; PULSE 72; RESP 16; TEMP 36.8; O2SAT 99
--- NOTE | 2021-04-25 21:33 | P.PNPSI_ITS ---
Subjective Subjective Date of Service: 04/25/21 Reason For Visit: Psychosis Healthcare Proxy: Yes Medical Problems Affecting Mental Status: Yes Interim History: PT awake tracks visually mostly nonverbal not overly agitated daughter concerned pt has not been verbal Medication Compliance: Intermittent Attending Groups: No Review of Systems Acute medical concerns: Yes recent fall subdural recent sz Mental Status Exam Mental Status Exam Narrative: alert minimal response to verbal direction does accept passively Patient Appearance: Appropriate Patient Orientation: Person Level of Consciousness: Awake and Drowsy Patient Behavior: Cooperative Mood Description: Apathetic and Constricted Affect Description: Depressed and Flat Patient Cognition Impaired: Yes Ability to Follow Directions: Fair Hallucinations: None Delusions: Not Present Thought Process: Illogical and Evasive Thought Content: positive for Poverty of Content Judgement: Poor Diagnostics Vital Signs (24Hr): Vital Signs - 24 hr 04/25/21 09:11 04/25/21 18:00 Temperature 98.2 F 98.3 F Pulse Rate 56 72 Respiratory Rate 14 16 Blood Pressure 119/74 141/76 H Pulse Oximetry 99 99 Body Mass Index 22.7 Labs Results: 04/25/21 16:04 Labs: Laboratory Results - last 48 hr 04/24/21 04/24/21 04/25/21 06:22 06:22 16:04 Sodium 138 Potassium 4.5 Chloride 102 Carbon Dioxide 28 Anion Gap 13 BUN 14 Creatinine 0.97 Estim Creat Clear Calc 58.4 Estimated GFR 58 Random Glucose 159 H Calcium 10.1 D Total Bilirubin 0.9 AST 15 ALT 11 Alkaline Phosphatase 89 D Ammonia Total Protein 7.3 Albumin 4.4 Valproic Acid 69.7 [place] 1.00 04/25/21 04/25/21 16:04 16:04 Sodium Potassium Chloride Carbon Dioxide Anion Gap BUN Creatinine Estim Creat Clear Calc Estimated GFR Random Glucose Calcium Total Bilirubin AST ALT Alkaline Phosphatase Ammonia 20 Total Protein Albumin Valproic Acid 67.8 [place] Imaging Radiology Impressions: ITS Impressions Head CT 04/25/21 18:28 IMPRESSION: Expected evolution of small right-sided low attenuating subdural hematoma. No new intracranial hemorrhage and no mass effect. Medications Medications Current Medications Acetaminophen (Acetaminophen Supp 650 Mg Supp.Rect) 650 mg IN Q6H PRN PRN Reason: Pain, Mild (Pain Scale 1-3) Acetaminophen (Acetaminophen 325 Mg Tablet) 650 mg PO Q4H PRN PRN Reason: Pain, Moderate (Pain Scale 4-6 Last Admin: 04/24/21 16:01 Dose: 650 mg Documented by: Al Hydroxide/Mg Hydroxide (Magnesium Hydrox/Alum Hydrox 30 Ml Oral.Susp) 30 ml PO Q6H PRN PRN Reason: Heartburn/Nausea Hydroxyzine HCl (Hydroxyzine Hcl 25 Mg Tablet) 25 mg PO BEDTIME PRN PRN Reason: Anxiety Valproic Acid 250 mg/ Dextrose 52.5 mls @ 52.5 mls/hr IV ONCE PRN PRN Reason: Seizures Lidocaine (Lidocaine 4 % Patch Adh..Patch) 1 patch TRANSDERMA DAILY [facility]; Protocol Last Admin: 04/25/21 15:39 Dose: 1 patch Documented by: [place] Carbonate ([place] Carbonate 300 Mg Tablet) 450 mg PO BID [facility] Last Admin: 04/25/21 21:00 Dose: 450 mg Documented by: Lorazepam (Lorazepam 2 Mg/Ml Vial) 1 mg IVPUSH Q2H PRN PRN Reason: Seizures Last Admin: 04/25/21 06:49 Dose: 1 mg Documented by: Lorazepam (Lorazepam 2 Mg/Ml Vial) 1 mg IVPUSH Q6H PRN PRN Reason: agitation. Use sparingly Last Admin: 04/22/21 22:11 Dose: 1 mg Documented by: Magnesium Hydroxide (Milk Of Magnesia 30 Ml Oral.Susp) 30 ml PO DAILY PRN PRN Reason: Constipation Morphine Sulfate (Morphine Sulfate 2 Mg/Ml Cartridge) 1 mg IVPUSH Q6H PRN; Protocol PRN Reason: Breakthrough Pain Last Admin: 04/25/21 01:01 Dose: 1 mg Documented by: Olanzapine (Olanzapine 5 Mg Tablet) 5 mg PO Q4H PRN PRN Reason: agitation Last Admin: 04/24/21 07:52 Dose: 5 mg Documented by: Sodium Chloride (0.9 % Sodium Chloride Flush 3 Ml Syringe) [facility] Last Admin: 04/25/21 19:43 Dose: 3 ml Documented by: Trazodone HCl (Trazodone Hcl 50 Mg Tablet) 50 mg PO BEDTIME PRN PRN Reason: Insomnia Valproic Acid (Valproic Acid (As Sodium Salt) 250 Mg/5 Ml Solution) 250 mg PO DAILY [facility] Last Admin: 04/25/21 17:00 Dose: 250 mg Documented by: Valproic Acid (Valproic Acid (As Sodium Salt) 250 Mg/5 Ml Solution) 375 mg PO BEDTIME [facility] Last Admin: 04/25/21 21:00 Dose: 375 mg Documented by: Allergies Allergies Allergy/AdvReac Type Severity Reaction Status Date / Time No Known Allergies Allergy Verified 04/11/21 20:47 Assessment & Plan Assessment & Plan (1) Subdural hematoma: Status: Acute Code(s): S06.5X9A - Traumatic subdural hemorrhage with loss of consciousness of unspecified duration, initial encounter Assessment and Plan: observe. repeat head ct (2) Seizure disorder: Status: Acute Code(s): G40.909 - Epilepsy, unspecified, not intractable, without status epilepticus Assessment and Plan: Valproic acid level mid to high therapeutic. If she has any more Sz, would add Keppra 1gm bid . If patient is unable to take her meds po the depakote can be switched to the same dose Depacon IV and so also if there is need to add Keppr a, it can be given IV. above reviewed from neuro (3) Major neurocognitive disorder as late effect of traumatic brain injury without behavioral disturbance: Status: Acute Code(s): S06.9X9S - Unspecified intracranial injury with loss of consciousness of unspecified duration, sequela; F02.80 - Dementia in other diseases classified elsewhere without behavioral disturbance (4) TBI (traumatic brain injury): Status: Acute Code(s): S06.9X9A - Unspecified intracranial injury with loss of consciousness of unspecified duration, initial encounter Assessment and Plan: The patient is a middle-aged female with a long history of dementia, most likely vascular as [facility], referred from her MALISSA for violent beha vior. She was admitted initially to this facility and later she had to be transferred to Medicine due to a subdural hematoma after seizure. Currently, she is medically cleared as per medical team. Plan encourage po acceptance of meds hiram ct scan ck labs ammonia Greater than 50% of the session was spent on counseling and/or coordination of care Reason for contiued inpatient stay Substantial Risk for: inability to function, rapid decompensation and med/psych decompensation
[2021-04-26 07:22] LABS: Lithium 1.14 mmol/L (0.60-1.20)
[2021-04-26 07:42] LABS: Valproate 91.1 mcg/mL (50.0-100.0)
[2021-04-26 08:00] VITALS: BP 143/89; PULSE 74; RESP 18; TEMP 36.6; O2SAT 100
[2021-04-26] MEDS: Lidocaine 4 % Patch ADH..PATCH 1 PATCH TRANSDERMA (09:01)
[2021-04-26] MEDS: 0.9 % Sodium Chloride Flush 3 ML SYRINGE IVFLUSH (13:54)
--- NOTE | 2021-04-26 20:33 | P.PNPSI_ITS ---
Subjective Subjective Date of Service: 04/26/21 Reason For Visit: Psychosis Subjective Notes: Conditional Voluntary Healthcare Proxy: Yes Interim History: Patient mostly mute passively apathetic and excepting but limited food and fluid intake. Has not been aggressive. Head CT scan and labs reviewed with patient's daughter healthcare proxy Mental Status Exam Mental Status Exam Narrative: alert minimal response to verbal direction does accept passively Patient Appearance: Appropriate Patient Orientation: Person Level of Consciousness: Awake and Drowsy Patient Behavior: Cooperative Mood Description: Apathetic and Constricted Affect Description: Depressed and Flat Patient Cognition Impaired: Yes Ability to Follow Directions: Poor Speech Pattern: Impoverished Delusions: Not Present Thought Content: positive for Poverty of Content Abnormal Motor Activity Signs and Symptoms: Psychomotor Retardation Judgement: Poor Judgement and Insight: Patient apathetic generally mute she is ambulating with assistance Diagnostics Vital Signs (24Hr): Vital Signs - 24 hr 04/26/21 08:00 Temperature 97.9 F Pulse Rate 74 Respiratory Rate 18 Blood Pressure 143/89 H Pulse Oximetry 100 Body Mass Index 22.7 Labs Results: 04/25/21 16:04 Labs: Laboratory Results - last 48 hr 04/25/21 04/25/21 04/25/21 16:04 16:04 16:04 Sodium 138 Potassium 4.5 Chloride 102 Carbon Dioxide 28 Anion Gap 13 BUN 14 Creatinine 0.97 Estim Creat Clear Calc 58.4 Estimated GFR 58 Random Glucose 159 H Calcium 10.1 D Total Bilirubin 0.9 AST 15 ALT 11 Alkaline Phosphatase 89 D Ammonia 20 Total Protein 7.3 Albumin 4.4 Valproic Acid 67.8 [place] 04/26/21 04/26/21 06:58 06:58 Sodium Potassium Chloride Carbon Dioxide Anion Gap BUN Creatinine Estim Creat Clear Calc Estimated GFR Random Glucose Calcium Total Bilirubin AST ALT Alkaline Phosphatase Ammonia Total Protein Albumin Valproic Acid 91.1 [place] 1.14 Imaging Radiology Impressions: ITS Impressions Head CT 04/25/21 18:28 IMPRESSION: Expected evolution of small right-sided low attenuating subdural hematoma. No new intracranial hemorrhage and no mass effect. Medications Medications Current Medications Acetaminophen (Acetaminophen Supp 650 Mg Supp.Rect) 650 mg OR Q6H PRN PRN Reason: Pain, Mild (Pain Scale 1-3) Acetaminophen (Acetaminophen 325 Mg Tablet) 650 mg PO Q4H PRN PRN Reason: Pain, Moderate (Pain Scale 4-6 Last Admin: 04/24/21 16:01 Dose: 650 mg Documented by: Al Hydroxide/Mg Hydroxide (Magnesium Hydrox/Alum Hydrox 30 Ml Oral.Susp) 30 ml PO Q6H PRN PRN Reason: Heartburn/Nausea Hydroxyzine HCl (Hydroxyzine Hcl 25 Mg Tablet) 25 mg PO BEDTIME PRN PRN Reason: Anxiety Valproic Acid 250 mg/ Dextrose 52.5 mls @ 52.5 mls/hr IV ONCE [facility] Dextrose/Sodium Chloride (D5ns) 1,000 mls @ 80 mls/hr IVCONT .[id number] [facility] Lidocaine (Lidocaine 4 % Patch Adh..Patch) 1 patch TRANSDERMA DAILY [facility]; Protocol Last Admin: 04/26/21 09:01 Dose: 1 patch Documented by: Lorazepam (Lorazepam 2 Mg/Ml Vial) 1 mg IVPUSH Q2H PRN PRN Reason: Seizures Last Admin: 04/25/21 06:49 Dose: 1 mg Documented by: Lorazepam (Lorazepam 2 Mg/Ml Vial) 1 mg IVPUSH Q6H PRN PRN Reason: agitation. Use sparingly Last Admin: 04/22/21 22:11 Dose: 1 mg Documented by: Magnesium Hydroxide (Milk Of Magnesia 30 Ml Oral.Susp) 30 ml PO DAILY PRN PRN Reason: Constipation Morphine Sulfate (Morphine Sulfate 2 Mg/Ml Cartridge) 1 mg IVPUSH Q6H PRN; Protocol PRN Reason: Breakthrough Pain Last Admin: 04/25/21 01:01 Dose: 1 mg Documented by: Olanzapine (Olanzapine 5 Mg Tablet) 5 mg PO Q4H PRN PRN Reason: agitation Last Admin: 04/24/21 07:52 Dose: 5 mg Documented by: Sodium Chloride (0.9 % Sodium Chloride Flush 3 Ml Syringe) [facility] Last Admin: 04/26/21 17:40 Dose: Not Given Documented by: Trazodone HCl (Trazodone Hcl 50 Mg Tablet) 50 mg PO BEDTIME PRN PRN Reason: Insomnia Valproic Acid (Valproic Acid (As Sodium Salt) 250 Mg/5 Ml Solution) 250 mg PO DAILY [facility] Last Admin: 04/26/21 09:25 Dose: 250 mg Documented by: Valproic Acid (Valproic Acid (As Sodium Salt) 250 Mg/5 Ml Solution) 375 mg PO BEDTIME [facility] Last Admin: 04/25/21 21:00 Dose: 375 mg Documented by: Allergies Allergies Allergy/AdvReac Type Severity Reaction Status Date / Time No Known Allergies Allergy Verified 04/11/21 20:47 Assessment & Plan Assessment & Plan (1) Subdural hematoma: Status: Acute Code(s): S06.5X9A - Traumatic subdural hemorrhage with loss of consciousness of unspecified duration, initial encounter (2) Seizure disorder: Status: Acute Code(s): G40.909 - Epilepsy, unspecified, not intractable, without status epilepticus Assessment and Plan: Valproic acid level mid to high therapeutic. If she has any more Sz, would add Keppra 1gm bid . If patient is unable to take her meds po the depakote can be switched to the same dose Depacon IV and so also if there is need to add Keppr a, it can be given IV. above reviewed from neuro Dr. 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 behavioral disturbance: Status: Acute Code(s): S06.9X9S - Unspecified intracranial injury with loss of consciousness of unspecified duration, sequela; F02.80 - Dementia in other diseases classified elsewhere without behavioral disturbance (4) TBI (traumatic brain injury): Status: Acute Code(s): S06.9X9A - Unspecified intracranial injury with loss of consciousness of unspecified duration, initial encounter Assessment and Plan: The patient is a middle-aged female with a long history of dementia, most likely vascular as [facility], patient has been more apathetic mute awake but not processing information lithium level 1.1. Will give 1 L of fluid hopefully patient will be more alert responsive and able to take in more p.o. intake on her own hold lithium restart at significantly lower dose repeat level for the morning Greater than 50% of the session was spent on counseling and/or coordination of care Reason for contiued inpatient stay Substantial Risk for: inability to function, rapid decompensation and med/psych decompensation
[2021-04-26 21:09] VITALS: BP 138/85; PULSE 91; RESP 16; TEMP 36.9; O2SAT 99
[2021-04-26] MEDS: Dextrose 5 % and 0.9 % NaCl 1,000 ML 80 ML IVCONT (21:45)
[2021-04-27 07:00] LABS: Lithium 0.72 mmol/L (0.60-1.20)
[2021-04-27 08:00] VITALS: BP 110/70; PULSE 68; O2SAT 98
[2021-04-27] MEDS: Dextrose 5 % and 0.9 % NaCl 1,000 ML 80 ML IVCONT ×2 (09:22→20:11)
[2021-04-27] MEDS: 0.9 % Sodium Chloride Flush 3 ML SYRINGE IVFLUSH (10:19)
--- NOTE | 2021-04-27 15:43 | MHC.CLN ---
F/U PER STAFF NOT EATING X 2 DAYS. RECEIVED IV FLUIDS. CONTINUES WITH REGULAR DIET WITH ENSURE CLEAR TID. MONITOR PO INTAKE CLOSELY.
--- NOTE | 2021-04-27 16:55 | P.PNPSI_ITS ---
Subjective Subjective Date of Service: 04/27/21 Reason For Visit: Psychosis Interim History: Pt sitting with safety chiang, minimal eye contact but does look up when this jingle writer calls her name. None verbal for most part. Per nursing, pt refused oral meds after 04/26 AM. Per nursing, pt appears more lethargic, less responsive to environment and interactions from staff. [place] was d/c yesterday due to concern of underlying cause of lethargy. Other labs wnl including renal function Cr- improved from 04/19 to 0.97 previously 1.3. Note creatine clearance 58.4 and GFR 58 - some degree of underlying kidney disease pathology present. This jingle writer spoke with pt's sister- informed of progressive lethargy, most likely could be lithium, which was d/c yesterday. However, note that pt without behavioral outburst since lithium started. Also discussed with sister that pt not taking po refusing depakote which is of concern in terms of seizure management. Sister agreed to IV depakote Medication Compliance: No Attending Groups: No Mental Status Exam Mental Status Exam Narrative: alert minimal response to verbal direction does accept passively Patient Appearance: Appropriate Patient Orientation: Person Level of Consciousness: Awake and Drowsy Patient Behavior: Cooperative Mood Description: Apathetic and Constricted Affect Description: Depressed and Flat Patient Cognition Impaired: Yes Ability to Follow Directions: Poor Speech Pattern: Impoverished Diagnostics Vital Signs (24Hr): Vital Signs - 24 hr 04/26/21 21:09 Temperature 98.4 F Pulse Rate 91 Respiratory Rate 16 Blood Pressure 138/85 Pulse Oximetry 99 Body Mass Index 22.7 Labs Results: 04/25/21 16:04 Labs: Laboratory Results - last 48 hr 04/26/21 04/26/21 04/27/21 06:58 06:58 06:39 Valproic Acid 91.1 [place] 1.14 0.72 Imaging Radiology Impressions: ITS Impressions Head CT 04/25/21 18:28 IMPRESSION: Expected evolution of small right-sided low attenuating subdural hematoma. No new intracranial hemorrhage and no mass effect. Medications Medications Current Medications Acetaminophen (Acetaminophen Supp 650 Mg Supp.Rect) 650 mg [place] Q6H PRN PRN Reason: Pain, Mild (Pain Scale 1-3) Acetaminophen (Acetaminophen 325 Mg Tablet) 650 mg PO Q4H PRN PRN Reason: Pain, Moderate (Pain Scale 4-6 Last Admin: 04/24/21 16:01 Dose: 650 mg Documented by: Al Hydroxide/Mg Hydroxide (Magnesium Hydrox/Alum Hydrox 30 Ml Oral.Susp) 30 ml PO Q6H PRN PRN Reason: Heartburn/Nausea Hydroxyzine HCl (Hydroxyzine Hcl 25 Mg Tablet) 25 mg PO BEDTIME PRN PRN Reason: Anxiety Valproic Acid 250 mg/ Dextrose 52.5 mls @ 52.5 mls/hr IV ONCE [facility] Dextrose/Sodium Chloride (D5ns) 1,000 mls @ 80 mls/hr IVCONT .[id number] [facility] Last Admin: 04/27/21 09:22 Dose: 80 mls/hr Documented by: Lidocaine (Lidocaine 4 % Patch Adh..Patch) 1 patch TRANSDERMA DAILY [facility]; Protocol Last Admin: 04/27/21 09:47 Dose: Not Given Documented by: Lorazepam (Lorazepam 2 Mg/Ml Vial) 1 mg IVPUSH Q2H PRN PRN Reason: Seizures Last Admin: 04/25/21 06:49 Dose: 1 mg Documented by: Lorazepam (Lorazepam 2 Mg/Ml Vial) 1 mg IVPUSH Q6H PRN PRN Reason: agitation. Use sparingly Last Admin: 04/22/21 22:11 Dose: 1 mg Documented by: Magnesium Hydroxide (Milk Of Magnesia 30 Ml Oral.Susp) 30 ml PO DAILY PRN PRN Reason: Constipation Olanzapine (Olanzapine 5 Mg Tablet) 5 mg PO Q4H PRN PRN Reason: agitation Last Admin: 04/24/21 07:52 Dose: 5 mg Documented by: Sodium Chloride (0.9 % Sodium Chloride Flush 3 Ml Syringe) [facility] Last Admin: 04/27/21 10:19 Dose: 3 ml Documented by: Trazodone HCl (Trazodone Hcl 50 Mg Tablet) 50 mg PO BEDTIME PRN PRN Reason: Insomnia Valproic Acid (Valproic Acid (As Sodium Salt) 250 Mg/5 Ml Solution) 250 mg PO DAILY [facility] Last Admin: 04/27/21 09:22 Dose: 250 mg Documented by: Valproic Acid (Valproic Acid (As Sodium Salt) 250 Mg/5 Ml Solution) 375 mg PO BEDTIME [facility] Last Admin: 04/26/21 22:11 Dose: 250 mg Documented by: Allergies Allergies Allergy/AdvReac Type Severity Reaction Status Date / Time No Known Allergies Allergy Verified 04/11/21 20:47 Assessment & Plan Assessment & Plan (1) Subdural hematoma: Status: Acute Code(s): S06.5X9A - Traumatic subdural hemorrhage with loss of consciousness of unspecified duration, initial encounter (2) Seizure disorder: Status: Acute Code(s): G40.909 - Epilepsy, unspecified, not intractable, without status epilepticus Assessment and Plan: Valproic acid level mid to high therapeutic. If she has any more Sz, would add Keppra 1gm bid . If patient is unable to take her meds po the depakote can be switched to the same dose Depacon IV and so also if there is need to add Keppr a, it can be given IV. above reviewed from neuro Dr. 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 behavioral disturbance: Status: Acute Code(s): S06.9X9S - Unspecified intracranial injury with loss of consciousness of unspecified duration, sequela; F02.80 - Dementia in other diseases classified [place] without behavioral disturbance (4) TBI (traumatic brain injury): Status: Acute Code(s): S06.9X9A - Unspecified intracranial injury with loss of consciousness of unspecified duration, initial encounter Assessment and Plan: The patient is a middle-aged female with a long history of dementia, most likely vascular as [facility], patient has been more apathetic mute awake but not processing information lithium level 1.1. Will give 1 L of fluid hopefully patient will be more alert responsive and able to take in more p.o. intake on her own hold lithium restart at significantly lower dose repeat level for the morning Greater than 50% of the session was spent on counseling and/or coordination of care Reason for contiued inpatient stay Substantial Risk for: inability to function
[2021-04-27 18:02] LABS: MANUAL DIFF FLAG NO
[2021-04-27 18:05] LABS: Basophils Absolute Auto 0.1 X10*3/uL (0.0-0.2); Basophils Percent Auto 0.9 % (0-2); Eosinophils Absolute Auto 0.1 X10*3/uL (0.0-0.4); Eosinophils Percent Auto 0.9 % (0-4); Hematocrit 44.1 % (37-47); Hemoglobin 14.5 g/dl (12.0-16.0); Imm Gran Abs Auto 0.03 X10*3/uL (0.00-0.03); Imm Gran Pct Auto 0.5 % (0.0-0.4); Lymphocytes Absolute Auto 1.7 X10*3/uL (1.2-4.9); Lymphocytes Percent Auto 25.5 % (20-40); Mean Corpuscular HGB Conc 32.9 g/dl (31.0-35.0); Mean Corpuscular Volume 91.3 fL (80-98); Mean Platelet Volume 11.7 fL (9.4-12.3); Monocytes Absolute Auto 0.4 X10*3/uL (0.1-1.2); Monocytes Percent Auto 6.5 % (2-11); Neutrophils Absolute Auto 4.4 X10*3/uL (2.0-8.3); Neutrophils Percent Auto 65.7 % (45-73); Platelet Count 285 X10*3/uL (160-400); Red Blood Count 4.83 X10*6/uL (4.20-5.50); Red Cell Distribution Width 13.7 % (11.0-16.0); White Blood Count 6.7 X10*3/uL (4.8-10.8)
[2021-04-27 18:19] LABS: Alanine Aminotransferase 7 U/L (0-31); Albumin Level 4.5 g/dL (3.5-5.0); Alkaline Phosphatase 100 U/L (39-117); Anion Gap 16 (12-20); Aspartate Amino Transferase 14 U/L (5-31); Bilirubin Total 1.3 mg/dL (0.0-1.0); Blood Urea Nitrogen 18 mg/dL (9-16); Calcium 10.1 mg/dL (8.4-10.2); Carbon Dioxide 24 mmol/L (22-29); Chloride 105 mmol/L (96-108); Creatinine Clr Calc Pharmacy 68.3; Estimated Glomerular Filt Rate > 60; Glucose Random 118 mg/dL (60-115); Potassium 4.9 mmol/L (3.3-5.1); Sodium 140 mmol/L (135-145); Total Protein 7.5 g/dL (6.5-8.0)
--- NOTE | 2021-04-28 01:31 | PC.NURSE ---
PT has continuous D5/NS running at 80ml/hr. IV patent no S/S of infection or infiltration, no redness or warm at site. IV flushing well. PT has no S/S of seizures this shift. Depakote given by IV due to PT refusing po. PT appears to be having trouble swallowing, PT drooling at times. unable to take any meds po. PT incontinent , koffi care performed. Nurse will continue to monitor.
[2021-04-28 05:17] VITALS: BP 174/88; PULSE 62; RESP 16; TEMP 36.8; O2SAT 98
[2021-04-28] MEDS: Dextrose 5 % and 0.9 % NaCl 1,000 ML 80 ML IVCONT ×2 (09:41→20:06)
[2021-04-28] MEDS: 0.9 % Sodium Chloride Flush 3 ML SYRINGE IVFLUSH (09:41)
[2021-04-28] MEDS: Valproic Acid (as Sodium Salt) 250 MG in Dextrose 5 % 50 ML 52.5 MG IV (10:17)
--- NOTE | 2021-04-28 10:25 | HO.PSYCHPN ---
Subjective Subjective Date of Service: 04/28/21 Reason For Visit: Psychosis Subjective Notes: Conditional Voluntary Interim History: Patient was seen in rounds today. She was laying in bed, alert but unresponsive. She has not been taking p.o. medications or eating. She has not taken any Depakote and has started to have some twitching. IV was started again and the Depakote will be given at 250 mg initially and then 150 mg 4 times a day IV. Review of Systems Review of Systems Yes Unobtainable due to mental status Mental Status Exam Mental Status Exam Narrative: In today's visit she is alert with no response or interaction. She appears confused and almost catatonic Diagnostics Vital Signs (24Hr): Vital Signs - 24 hr 04/28/21 05:17 Temperature 98.3 F Pulse Rate 62 Respiratory Rate 16 Blood Pressure 174/88 H Pulse Oximetry 98 Body Mass Index 22.7 Labs Results: 04/27/21 17:58 04/27/21 17:58 Labs: Laboratory Results - last 48 hr 04/27/21 04/27/21 04/27/21 06:39 17:58 17:58 WBC 6.7 RBC 4.83 D Hgb 14.5 D Hct 44.1 D MCV 91.3 MCH 30.0 MCHC 32.9 RDW 13.7 Plt Count 285 D MPV 11.7 Immature Gran % (Auto) 0.5 H Neut % (Auto) 65.7 Lymph % (Auto) 25.5 [place] % (Auto) 6.5 Eos % (Auto) 0.9 Baso % (Auto) 0.9 Lymph # (Auto) 1.7 [place] # (Auto) 0.4 Eos # (Auto) 0.1 Baso # (Auto) 0.1 Abs Immat Gran (auto) 0.03 Absolute Neuts (auto) 4.4 Absolute Nucleated RBC 0.000 Nucleated RBC % (auto) 0.0 Sodium 140 Potassium 4.9 Chloride 105 Carbon Dioxide 24 Anion Gap 16 BUN 18 H Creatinine 0.83 Estim Creat Clear Calc 68.3 Estimated GFR > 60 Random Glucose 118 H Calcium 10.1 Total Bilirubin 1.3 H AST 14 ALT 7 Alkaline Phosphatase 100 Total Protein 7.5 Albumin 4.5 [place] 0.72 Imaging Radiology Impressions: ITS Impressions Head CT 04/25/21 18:28 IMPRESSION: Expected evolution of small right-sided low attenuating subdural hematoma. No new intracranial hemorrhage and no mass effect. Medications Medications Current Medications Acetaminophen (Acetaminophen Supp 650 Mg Supp.Rect) 650 mg [place] Q6H PRN PRN Reason: Pain, Mild (Pain Scale 1-3) Acetaminophen (Acetaminophen 325 Mg Tablet) 650 mg PO Q4H PRN PRN Reason: Pain, Moderate (Pain Scale 4-6 Last Admin: 04/24/21 16:01 Dose: 650 mg Documented by: Al Hydroxide/Mg Hydroxide (Magnesium Hydrox/Alum Hydrox 30 Ml Oral.Susp) 30 ml PO Q6H PRN PRN Reason: Heartburn/Nausea Hydroxyzine HCl (Hydroxyzine Hcl 25 Mg Tablet) 25 mg PO BEDTIME PRN PRN Reason: Anxiety Dextrose/Sodium Chloride (D5ns) 1,000 mls @ 80 mls/hr IVCONT .[id number] VIKTORIYA Last Admin: 04/28/21 09:41 Dose: 80 mls/hr Documented by: Valproic Acid 250 mg/ Dextrose 52.5 mls @ 52.5 mls/hr IV BID PRN PRN Reason: IF PATIENT CAN'T TOLERATE ORAL Stop: 04/28/21 11:00 Last Admin: 04/28/21 10:17 Dose: 52.5 mls/hr Documented by: Valproic Acid 150 mg/ Dextrose 51.5 mls @ 52.5 mls/hr IV Q6H [facility] Lidocaine (Lidocaine 4 % Patch Adh..Patch) 1 patch TRANSDERMA DAILY [facility]; Protocol Last Admin: 04/27/21 09:47 Dose: Not Given Documented by: Lorazepam (Lorazepam 2 Mg/Ml Vial) 1 mg IVPUSH Q2H PRN PRN Reason: Seizures Last Admin: 04/25/21 06:49 Dose: 1 mg Documented by: Lorazepam (Lorazepam 2 Mg/Ml Vial) 1 mg IVPUSH Q6H PRN PRN Reason: agitation. Use sparingly Last Admin: 04/22/21 22:11 Dose: 1 mg Documented by: Magnesium Hydroxide (Milk Of Magnesia 30 Ml Oral.Susp) 30 ml PO DAILY PRN PRN Reason: Constipation Olanzapine (Olanzapine 5 Mg Tablet) 5 mg PO Q4H PRN PRN Reason: agitation Last Admin: 04/24/21 07:52 Dose: 5 mg Documented by: Sodium Chloride (0.9 % Sodium Chloride Flush 3 Ml Syringe) 3 ml IVFLUSH QSHIFT [facility] Last Admin: 04/28/21 09:41 Dose: 3 ml Documented by: Trazodone HCl (Trazodone Hcl 50 Mg Tablet) 50 mg PO BEDTIME PRN PRN Reason: Insomnia Allergies Allergies Allergy/AdvReac Type Severity Reaction Status Date / Time No Known Allergies Allergy Verified 04/11/21 20:47 Assessment & Plan Assessment & Plan (1) Subdural hematoma: Status: Acute Code(s): S06.5X9A - Traumatic subdural hemorrhage with loss of consciousness of unspecified duration, initial encounter (2) Seizure disorder: Status: Acute Code(s): G40.909 - Epilepsy, unspecified, not intractable, without status epilepticus Assessment and Plan: Valproic acid level mid to high therapeutic. If she has any more Sz, would add Keppra 1gm bid . If patient is unable to take her meds po the depakote can be switched to the same dose Depacon IV and so also if there is need to add Keppr a, it can be given IV. above reviewed from neuro Dr. 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 behavioral disturbance: Status: Acute Code(s): S06.9X9S - Unspecified intracranial injury with loss of consciousness of unspecified duration, sequela; F02.80 - Dementia in other diseases classified elsewhere without behavioral disturbance (4) TBI (traumatic brain injury): Status: Acute Code(s): S06.9X9A - Unspecified intracranial injury with loss of consciousness of unspecified duration, initial encounter Assessment and Plan: The patient is a middle-aged female with a long history of dementia, most likely vascular as [facility], patient has been more apathetic mute awake but not processing information lithium level 1.1. Will give 1 L of fluid hopefully patient will be more alert responsive and able to take in more p.o. Continue current regimen and plans with IV Depakote implemented because of her refusal to take anything p.o. Greater than 50% of the session was spent on counseling and/or coordination of care Reason for contiued inpatient stay Substantial Risk for: med/psych decompensation
[2021-04-28 12:47] VITALS: BP 170/76; PULSE 60; RESP 16; TEMP 36.3; O2SAT 100
[2021-04-28 13:00] VITALS: BP 170/76; PULSE 60; RESP 16; TEMP 36.3; O2SAT 100
[2021-04-28] MEDS: LORazepam 2 MG/ML VIAL 1 MG IVPUSH (13:55)
[2021-04-28] MEDS: Benztropine Mesylate 2 MG/2 ML VIAL 1 MG IM (13:56)
[2021-04-28] MEDS: Acetaminophen Supp 650 MG SUPP.RECT PR (13:58)
[2021-04-28 16:40] VITALS: BP 120/67; PULSE 50; RESP 12; TEMP 35.8; O2SAT 98
[2021-04-28 18:00] VITALS: BP 120/61; PULSE 50; RESP 18; TEMP 36.1; O2SAT 98
--- NOTE | 2021-04-28 18:30 | PC.NURSE ---
Patient alert but not responsive. She is noted to have Gross Motor and Facial Tics this morning with Muscle Rigidity and Pain. Patient refusing anything by mouth. Patient not taking P.O. medications, food, or drink at this time. Patient noted to have BP 170/76. Reported symptoms to Anant Hansen. Anant orders to administer IV Depakote 250mg PRN and then continue regularly scheduled Depakote 150mg. 250mg Depakote administered along with ordered fluids. Some positive effect noted. Hospitalist Consult entered. Anant Hansen and Anant Arias collaborated. Additional orders to administer IV Ativan, IM Cogentin, and a Tylenol suppository. Patient resting comfortably in bed. Repositioned q2H to prevent skin breakdown.
[2021-04-29 05:00] VITALS: BP 141/67; PULSE 57; RESP 16; TEMP 36.1; O2SAT 100
[2021-04-29] MEDS: Dextrose 5 % and 0.9 % NaCl 1,000 ML 80 ML IVCONT ×2 (09:18→22:33)
--- NOTE | 2021-04-29 09:36 | HO.PSYCHPN ---
Subjective Subjective Date of Service: 04/29/21 Reason For Visit: Psychosis Subjective Notes: Conditional Voluntary Interim History: Patient was seen and discussed in rounds. Records were reviewed. She had a difficult day yesterday but after receiving IV Depakote and Ativan she has been doing moderately better. The IM Cogentin also was helpful with her muscle rigidity. She is not taking much by mouth. We decided to leave the IV in place since she probably needs to get her Depakote through that. She is up and around today, sitting comfortably in her chair with her eyes open. She acknowledges your presence but not much else interaction. No changes were made today Medication Compliance: No Side effects from medications: Yes (possible EPS) Review of Systems Review of Systems Review of systems is partly obtainable. Continues not to take anything by mouth. A swallowing consult has been ordered. No signs of EPS today Mental Status Exam Mental Status Exam Narrative: In today's visit she is alert. She is nonverbal. No exam could be conducted Diagnostics Vital Signs (24Hr): Vital Signs - 24 hr 04/28/21 12:47 04/28/21 13:00 04/28/21 16:40 Temperature 97.4 F 97.4 F 96.5 F L Pulse Rate 60 60 50 Respiratory Rate 16 16 12 Blood Pressure 170/76 H 170/76 H 120/67 Pulse Oximetry 100 100 98 04/28/21 18:00 04/29/21 05:00 Temperature 96.9 F 97 F Pulse Rate 50 57 Respiratory Rate 18 16 Blood Pressure 120/61 141/67 H Pulse Oximetry 98 100 Body Mass Index 22.7 Labs Results: 04/27/21 17:58 04/27/21 17:58 Labs: Laboratory Results - last 48 hr 04/27/21 04/27/21 17:58 17:58 WBC 6.7 RBC 4.83 D Hgb 14.5 D Hct 44.1 D MCV 91.3 MCH 30.0 MCHC 32.9 RDW 13.7 Plt Count 285 D MPV 11.7 Immature Gran % (Auto) 0.5 H Neut % (Auto) 65.7 Lymph % (Auto) 25.5 [place] % (Auto) 6.5 Eos % (Auto) 0.9 Baso % (Auto) 0.9 Lymph # (Auto) 1.7 [place] # (Auto) 0.4 Eos # (Auto) 0.1 Baso # (Auto) 0.1 Abs Immat Gran (auto) 0.03 Absolute Neuts (auto) 4.4 Absolute Nucleated RBC 0.000 Nucleated RBC % (auto) 0.0 Sodium 140 Potassium 4.9 Chloride 105 Carbon Dioxide 24 Anion Gap 16 BUN 18 H Creatinine 0.83 Estim Creat Clear Calc 68.3 Estimated GFR > 60 Random Glucose 118 H Calcium 10.1 Total Bilirubin 1.3 H AST 14 ALT 7 Alkaline Phosphatase 100 Total Protein 7.5 Albumin 4.5 Imaging Radiology Impressions: ITS Impressions Head CT 04/25/21 18:28 IMPRESSION: Expected evolution of small right-sided low attenuating subdural hematoma. No new intracranial hemorrhage and no mass effect. Medications Medications Current Medications Acetaminophen (Acetaminophen Supp 650 Mg Supp.Rect) 650 mg [place] Q6H PRN PRN Reason: Pain, Mild (Pain Scale 1-3) Last Admin: 04/28/21 13:58 Dose: 650 mg Documented by: Acetaminophen (Acetaminophen 325 Mg Tablet) 650 mg PO Q4H PRN PRN Reason: Pain, Moderate (Pain Scale 4-6 Last Admin: 04/24/21 16:01 Dose: 650 mg Documented by: Al Hydroxide/Mg Hydroxide (Magnesium Hydrox/Alum Hydrox 30 Ml Oral.Susp) 30 ml PO Q6H PRN PRN Reason: Heartburn/Nausea Benztropine Mesylate (Benztropine Mesylate 2 Mg/2 Ml Vial) 1 mg IM BID PRN PRN Reason: muscle rigidity Last Admin: 04/28/21 13:56 Dose: 1 mg Documented by: Hydroxyzine HCl (Hydroxyzine Hcl 25 Mg Tablet) 25 mg PO BEDTIME PRN PRN Reason: Anxiety Dextrose/Sodium Chloride (D5ns) 1,000 mls @ 80 mls/hr IVCONT .[id number] VIKTORIYA Last Admin: 04/29/21 09:18 Dose: 80 mls/hr Documented by: Valproic Acid 150 mg/ Dextrose 51.5 mls @ 52.506 mls/hr IV Q6H [facility] Last Infusion: 04/29/21 05:31 Dose: Infused Documented by: Lidocaine (Lidocaine 4 % Patch Adh..Patch) 1 patch TRANSDERMA DAILY [facility]; Protocol Last Admin: 04/28/21 11:14 Dose: Not Given Documented by: Lorazepam (Lorazepam 2 Mg/Ml Vial) 1 mg IVPUSH Q2H PRN PRN Reason: Seizures Last Admin: 04/28/21 13:55 Dose: 1 mg Documented by: Lorazepam (Lorazepam 2 Mg/Ml Vial) 1 mg IVPUSH Q6H PRN PRN Reason: agitation. Use sparingly Last Admin: 04/22/21 22:11 Dose: 1 mg Documented by: Magnesium Hydroxide (Milk Of Magnesia 30 Ml Oral.Susp) 30 ml PO DAILY PRN PRN Reason: Constipation Olanzapine (Olanzapine 5 Mg Tablet) 5 mg PO Q4H PRN PRN Reason: agitation Last Admin: 04/24/21 07:52 Dose: 5 mg Documented by: Sodium Chloride (0.9 % Sodium Chloride Flush 3 Ml Syringe) 3 ml IVFLUSH QSHIFT VIKTORIYA Last Admin: 04/29/21 09:04 Dose: Not Given Documented by: Trazodone HCl (Trazodone Hcl 50 Mg Tablet) 50 mg PO BEDTIME PRN PRN Reason: Insomnia Allergies Allergies Allergy/AdvReac Type Severity Reaction Status Date / Time No Known Allergies Allergy Verified 04/11/21 20:47 Assessment & Plan Assessment & Plan (1) Subdural hematoma: Status: Acute Code(s): S06.5X9A - Traumatic subdural hemorrhage with loss of consciousness of unspecified duration, initial encounter (2) Seizure disorder: Status: Acute Code(s): G40.909 - Epilepsy, unspecified, not intractable, without status epilepticus Assessment and Plan: Valproic acid level mid to high therapeutic. If she has any more Sz, would add Keppra 1gm bid . If patient is unable to take her meds po the depakote can be switched to the same dose Depacon IV and so also if there is need to add Keppr a, it can be given IV. above reviewed from neuro Dr. 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 behavioral disturbance: Status: Acute Code(s): S06.9X9S - Unspecified intracranial injury with loss of consciousness of unspecified duration, sequela; F02.80 - Dementia in other diseases classified elsewhere without behavioral disturbance (4) TBI (traumatic brain injury): Status: Acute Code(s): S06.9X9A - Unspecified intracranial injury with loss of consciousness of unspecified duration, initial encounter Assessment and Plan: The patient is a middle-aged female with a long history of dementia, most likely vascular as [facility], patient has been more apathetic mute awake but not processing information lithium level 1.1. Will give 1 L of fluid hopefully patient will be more alert responsive and able to take in more p.o. Continue current regimen and plans with IV Depakote implemented because of her refusal to take anything p.o. Reason for contiued inpatient stay Substantial Risk for: inability to function
[2021-04-29] MEDS: Lidocaine 4 % Patch ADH..PATCH 1 PATCH TRANSDERMA (10:00)
--- NOTE | 2021-04-29 12:01 | PC.NURSE ---
Addendum entered by Fabienne Dugan RN 04/29/21 16:27: Patient's daughter at bedside for visit. Patient's daughter made attempts to provide oral hydration and food to patient; patient refused. Patient up in hallway for ambulation with gait belt, two staff, and daughter encouraging patient. Patient noted to struggle with initiating gait, left-sided neglect, backward disequilibrium, as well as difficulty initiating the sitting position, changing position from standing to sitting. Symptoms consistent with Psychomotor Disadaptation Syndrome. Patient requiring strong support and encouragement to ambulate about hallways. Patient returned to bed for late afternoon period of rest. Original Note: Patient is alert but very minimally responsive to interaction. Slow ocular tracking noted with inexpressive, drooping face. Patient occasionally smiles when she makes eye contact with staff. She occasionally says Hi to staff. Patient is unable to answer questions or carry on conversation at this time. Patient is noted to have brief intermittent gross motor tics, but not as prominent as yesterday. Muscle rigidity not present at this time. Patient responds to hydration/feeding attempts with the word No and turns head away from staff. Patient is up to side of bed and assisted to shower by staff, ambulating with assistance. Patient is noted to have very unsteady gait with unstable balance. Leaning back against staff, 3 staff assistance required for safe ambulation/ repositioning. Patient is showered by two staff. She becomes agitated when changing in/out of clothing, toileting, and brief changes, grasping at clothing and saying Stop. Patient is calm under running warm water. Patient drinks approximately 6 oz of juice during morning hours. She takes 1-2 bites of yogurt. She then refuses any other hydration/food. Several different attempts, approaches are utilized in attempts to get Pt to eat, she refuses all. Patient is up to Natalia Chair during morning hours with IV running D5W and 0.9% NaCl at 80ml/hr. Depakote administered IV. Patient occasionally making attempts to reposition self in Natalia Chair. Patient is observed on 1:1 status of safety at this time.
[2021-04-29 18:39] VITALS: BP 159/76; PULSE 60; RESP 14; TEMP 36.8; O2SAT 97
[2021-04-30] MEDS: Lidocaine 4 % Patch ADH..PATCH 1 PATCH TRANSDERMA (09:22)
[2021-04-30 10:25] VITALS: BP 149/70; PULSE 61; RESP 16; TEMP 36.4; O2SAT 99
--- NOTE | 2021-04-30 11:49 | MHC.SLORD ---
Speech Language Pathology Order Status: Order for bedside dysphagia evaluation received. Patient refused all food and drink items from daughter, sister, and STOCKROOM COORDINATOR. Patient was previously evaluated by STOCKROOM COORDINATOR when in [facility] for seizure on 04/19/21 and was recommended regular solids and thin liquids at that time. Per RN note, patient is refusing food and liquid, even from daughter, is drooling, appears to have trouble swallowing, and unable to take PO meds. STOCKROOM COORDINATOR will re-attempt later today as schedule allows or tomorrow morning. Will continue to follow.
[2021-04-30] MEDS: LORazepam 2 MG/ML VIAL 1 MG IVPUSH (13:39)
--- NOTE | 2021-04-30 13:59 | MHC.CLN ---
NUTRITION NOT TAKING ANYTHING BY MOUTH (DAY 5) WITH BITES ONLY PRIOR TO THAT. SWALLOWING CONSULT ORDERED BY MD. CODE STATUS IS DNI/DNR. MD AWARE OF PO INTAKE. CONTINUE TO FOLLOW.
[2021-04-30 14:05] VITALS: BMI 22.7
[2021-04-30] MEDS: Dextrose 5 % and 0.9 % NaCl 1,000 ML 80 ML IVCONT (16:01)
--- NOTE | 2021-04-30 16:03 | HO.PSYCHPN ---
Subjective Subjective Date of Service: 04/30/21 Reason For Visit: Psychosis Subjective Notes: Conditional Voluntary Healthcare Proxy: Yes Guardianship: No Medical Problems Affecting Mental Status: Yes Interim History: The nursing staff reported a change in her mental status since last Friday, she has not been drinking or eating and she had a left-sided neglect. She has been on Depakote IV q.6 hours and so far she did have new seizure since April 19. We had a family meeting with his daughter and her sister caught the healthcare proxies and sings with and have a clear diagnosis of the change of her mental status the agreed to have an MRI with IV contrast to see if there is new lesions since there has been an approach changes in her mental status. On interview the patient was sleeping and she awakened and was looking very confused Mental Status Exam Mental Status Exam Patient Appearance: Unkempt Patient Orientation: Person Level of Consciousness: Drowsy and Lethargic Patient Behavior: Passive Mood Description: Flat Affect Description: Apathetic Patient Cognition Impaired: Yes Ability to Follow Directions: Fair Speech Pattern: No Speech Hallucinations: None Delusions: Not Present Thought Process: Illogical and Confusion Thought Content: positive for Disorganized Judgement: Poor Diagnostics Vital Signs (24Hr): Vital Signs - 24 hr 04/29/21 18:39 04/30/21 10:25 Temperature 98.2 F 97.5 F Pulse Rate 60 61 Respiratory Rate 14 16 Blood Pressure 159/76 H 149/70 H Pulse Oximetry 97 99 Body Mass Index 22.7 Labs Results: 04/27/21 17:58 04/27/21 17:58 Imaging Radiology Impressions: ITS Impressions Head CT 04/25/21 18:28 IMPRESSION: Expected evolution of small right-sided low attenuating subdural hematoma. No new intracranial hemorrhage and no mass effect. Medications Medications Current Medications Acetaminophen (Acetaminophen Supp 650 Mg Supp.Rect) 650 mg [place] Q6H PRN PRN Reason: Pain, Mild (Pain Scale 1-3) Last Admin: 04/28/21 13:58 Dose: 650 mg Documented by: Acetaminophen (Acetaminophen 325 Mg Tablet) 650 mg PO Q4H PRN PRN Reason: Pain, Moderate (Pain Scale 4-6 Last Admin: 04/24/21 16:01 Dose: 650 mg Documented by: Al Hydroxide/Mg Hydroxide (Magnesium Hydrox/Alum Hydrox 30 Ml Oral.Susp) 30 ml PO Q6H PRN PRN Reason: Heartburn/Nausea Benztropine Mesylate (Benztropine Mesylate 2 Mg/2 Ml Vial) 1 mg IM BID PRN PRN Reason: muscle rigidity Last Admin: 04/28/21 13:56 Dose: 1 mg Documented by: Hydroxyzine HCl (Hydroxyzine Hcl 25 Mg Tablet) 25 mg PO BEDTIME PRN PRN Reason: Anxiety Valproic Acid 150 mg/ Dextrose 51.5 mls @ 52.506 mls/hr IV Q6H [facility] Last Infusion: 04/30/21 15:16 Dose: Infused Documented by: Dextrose/Sodium Chloride (D5ns) 1,000 mls @ 80 mls/hr IVCONT .[id number] [facility] Last Admin: 04/29/21 22:33 Dose: 80 mls/hr Documented by: Lidocaine (Lidocaine 4 % Patch Adh..Patch) 1 patch TRANSDERMA DAILY [facility]; Protocol Last Admin: 04/30/21 09:22 Dose: 1 patch Documented by: Lorazepam (Lorazepam 2 Mg/Ml Vial) 1 mg IVPUSH Q6H PRN PRN Reason: agitation. Use sparingly Last Admin: 04/30/21 13:39 Dose: 1 mg Documented by: Magnesium Hydroxide (Milk Of Magnesia 30 Ml Oral.Susp) 30 ml PO DAILY PRN PRN Reason: Constipation Olanzapine (Olanzapine 5 Mg Tablet) 5 mg PO Q4H PRN PRN Reason: agitation Last Admin: 04/24/21 07:52 Dose: 5 mg Documented by: Sodium Chloride (0.9 % Sodium Chloride Flush 3 Ml Syringe) 3 ml IVFLUSH QSHIFT [facility] Last Admin: 04/30/21 10:28 Dose: Not Given Documented by: Trazodone HCl (Trazodone Hcl 50 Mg Tablet) 50 mg PO BEDTIME PRN PRN Reason: Insomnia Allergies Allergies Allergy/AdvReac Type Severity Reaction Status Date / Time No Known Allergies Allergy Verified 04/11/21 20:47 Assessment & Plan Assessment & Plan (1) Subdural hematoma: Status: Acute Code(s): S06.5X9A - Traumatic subdural hemorrhage with loss of consciousness of unspecified duration, initial encounter (2) Seizure disorder: Status: Acute Code(s): G40.909 - Epilepsy, unspecified, not intractable, without status epilepticus Assessment and Plan: Valproic acid level mid to high therapeutic. If she has any more Sz, would add Keppra 1gm bid . If patient is unable to take her meds po the depakote can be switched to the same dose Depacon IV and so also if there is need to add Keppr a, it can be given IV. above reviewed from neuro Dr. 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 behavioral disturbance: Status: Acute Code(s): S06.9X9S - Unspecified intracranial injury with loss of consciousness of unspecified duration, sequela; F02.80 - Dementia in other diseases classified elsewhere without behavioral disturbance (4) TBI (traumatic brain injury): Status: Acute Code(s): S06.9X9A - Unspecified intracranial injury with loss of consciousness of unspecified duration, initial encounter Assessment and Plan: The patient is a middle-aged female with a long history of dementia, most likely vascular as [facility], patient has been more apathetic mute awake but not processing information lithium level 1.1. Will give 1 L of fluid hopefully patient will be more alert responsive and able to take in more p.o. Continue current regimen and plans with IV Depakote implemented because of her refusal to take anything p.o. MRI was ordered, we discussed the case with Neurology and they suggested to do the MRI with contrast. Radiology was aware and they asked the healthcare proxy to sign the consent of the procedure. Ativan 2 mg IV push was order for before that procedure. Greater than 50% of the session was spent on counseling and/or coordination of care Reason for contiued inpatient stay Substantial Risk for: inability to function, rapid decompensation and med/psych decompensation
[2021-04-30 18:00] VITALS: BP 153/72; PULSE 57; RESP 16; TEMP 37.4; O2SAT 98
--- NOTE | 2021-04-30 18:09 | PC.NURSE ---
Patient has D5 NS running continuously at 80 mls/hr. IV site is patent with no s/s of infection or infiltration. IV Depakote given. Patient refusing PO meds, food, and drinks. Patient is incontinent. Attempted to shower patient, patient refused. Luh care and bed bath performed. Sequential compression device applied to bilateral lower extremities. After visit with family patient became agitated. IV push Ativan 1mg given with a positive effect.
[2021-05-01 06:00] VITALS: BP 137/66; PULSE 60; TEMP 36.2; O2SAT 98
[2021-05-01 07:26] LABS: Valproate 79.9 mcg/mL (50.0-100.0)
[2021-05-01 07:36] LABS: Alanine Aminotransferase 12 U/L (0-31); Albumin Level 3.6 g/dL (3.5-5.0); Alkaline Phosphatase 93 U/L (39-117); Anion Gap 10 (12-20); Aspartate Amino Transferase 17 U/L (5-31); Bilirubin Direct 0.4 mg/dL (0.0-0.5); Bilirubin Total 1.1 mg/dL (0.0-1.0); Blood Urea Nitrogen 6 mg/dL (9-16); Carbon Dioxide 30 mmol/L (22-29); Chloride 106 mmol/L (96-108); Creatinine Clr Calc Pharmacy 75.6; Estimated Glomerular Filt Rate > 60; Glucose Random 99 mg/dL (60-115); Potassium 3.7 mmol/L (3.3-5.1); Sodium 142 mmol/L (135-145)
[2021-05-01] MEDS: LORazepam 2 MG/ML VIAL IVPUSH (08:02)
[2021-05-01] MEDS: LORazepam 2 MG/ML VIAL 1 MG IVPUSH (11:28)
--- NOTE | 2021-05-01 11:52 | MHC.SLORD ---
Speech Language Pathology Order Status: LEAD SYSTEMS ANALYST checked in with nurse this morning. Patient was medicated and not appropriate for PO trials this afternoon. Per chart review, patient has been refusing PO and not taking anything by mouth day 6. Patient refused PO trials yesterday morning. LEAD SYSTEMS ANALYST will continue to follow. Please contact LEAD SYSTEMS ANALYST this afternoon by [place] message if patient is appropriate and willing to participate. Otherwise, LEAD SYSTEMS ANALYST will re-attempt evaluation tomorrow morning.
--- NOTE | 2021-05-01 14:38 | P.PNNE_ITS ---
Subjective Subjective Date of Service: 05/01/21 Interval History: She has not been drinking or eating and she had some left- sided neglect. She has been on Depakote IV q.6 hours and so far she did have new seizure since April 19. Valproate level is mid therapeutic. MRI brain shows no acute findings. Atrophy and white matter chronic microvascular changes. Critical Care Time (minutes): 0 Physical Exam Vital Signs: Vital Signs: Last Vital Signs Temp 97.2 F 05/01/21 06:00 Pulse 60 05/01/21 06:00 Resp 16 04/30/21 18:00 BP 137/66 05/01/21 06:00 Pulse Ox 98 05/01/21 06:00 Oxygen Flow Rate 2 04/20/21 23:00 Body Mass Index 22.7 Neuro: Other: She is awake and alert will occasionally follow one-step commands. She does not verbalize. She will sometimes smile and sometimes she will cry. She moves all 4 extremities against gravity and her neck is supple. She has a flattening of the right nasolabial fold. Tongue protrudes in the midline. There are no obvious visual field deficits. Objective Data Labs CBC & Chem 7: 04/27/21 17:58 05/01/21 06:39 Labs: Laboratory Results - last 24 hr 05/01/21 05/01/21 06:39 06:39 Sodium 142 Potassium 3.7 D Chloride 106 Carbon Dioxide 30 H Anion Gap 10 L BUN 6 L D Creatinine 0.75 Estim Creat Clear Calc 75.6 Estimated GFR > 60 Random Glucose 99 Calcium 9.0 D Total Bilirubin 1.1 H Direct Bilirubin 0.4 AST 17 ALT 12 Alkaline Phosphatase 93 Total Protein 6.0 L Albumin 3.6 Valproic Acid 79.9 Progress Note: A&P Assessment and plan (1) Subdural hematoma: Status: Acute Assessment and Plan: Insignificant. Not seen on latest MRI (2) Seizure disorder: Status: Acute Assessment and Plan: Valproic acid level mid to high therapeutic. No further Sz. 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 Fall Risk Details Current Medications: Current Medications Acetaminophen (Acetaminophen Supp 650 Mg Supp.Rect) 650 mg [place] Q6H PRN PRN Reason: Pain, Mild (Pain Scale 1-3) Last Admin: 04/28/21 13:58 Dose: 650 mg Documented by: Acetaminophen (Acetaminophen 325 Mg Tablet) 650 mg PO Q4H PRN PRN Reason: Pain, Moderate (Pain Scale 4-6 Last Admin: 04/24/21 16:01 Dose: 650 mg Documented by: Al Hydroxide/Mg Hydroxide (Magnesium Hydrox/Alum Hydrox 30 Ml Oral.Susp) 30 ml PO Q6H PRN PRN Reason: Heartburn/Nausea Benztropine Mesylate (Benztropine Mesylate 2 Mg/2 Ml Vial) 1 mg IM BID PRN PRN Reason: muscle rigidity Last Admin: 04/28/21 13:56 Dose: 1 mg Documented by: Hydroxyzine HCl (Hydroxyzine Hcl 25 Mg Tablet) 25 mg PO BEDTIME PRN PRN Reason: Anxiety Valproic Acid 150 mg/ Dextrose 51.5 mls @ 52.506 mls/hr IV Q6H [facility] Last Admin: 05/01/21 05:18 Dose: 52.5 mls/hr Documented by: Dextrose/Sodium Chloride (D5ns) 1,000 mls @ 80 mls/hr IVCONT .[id number] [facility] Last Admin: 04/30/21 16:01 Dose: 80 mls/hr Documented by: Lidocaine (Lidocaine 4 % Patch Adh..Patch) 1 patch TRANSDERMA DAILY [facility]; Protocol Last Admin: 05/01/21 10:29 Dose: Not Given Documented by: Lorazepam (Lorazepam 2 Mg/Ml Vial) 1 mg IVPUSH Q6H PRN PRN Reason: agitation. Use sparingly Last Admin: 04/30/21 13:39 Dose: 1 mg Documented by: Magnesium Hydroxide (Milk Of Magnesia 30 Ml Oral.Susp) 30 ml PO DAILY PRN PRN Reason: Constipation Olanzapine (Olanzapine 5 Mg Tablet) 5 mg PO Q4H PRN PRN Reason: agitation Last Admin: 04/24/21 07:52 Dose: 5 mg Documented by: Sodium Chloride (0.9 % Sodium Chloride Flush 3 Ml Syringe) 3 ml IVFLUSH QSHIFT [facility] Last Admin: 05/01/21 10:28 Dose: Not Given Documented by: Trazodone HCl (Trazodone Hcl 50 Mg Tablet) 50 mg PO BEDTIME PRN PRN Reason: Insomnia Time Spent With Patient Time with patient: 15 - 24 minutes Procedures Date of Service Date of Service: 05/01/21 Quality Stroke Does the patient have a stroke diagnosis?: No VTE Prior VTE?: No VTE Risk Level:: Medical - moderate - high VTE Device Contraindication: Treatment Not Indicated VTE Drug Contraindication: Treatment Not Indicated
--- NOTE | 2021-05-01 14:45 | HO.PSYCHPN ---
Subjective Subjective Date of Service: 05/01/21 Reason For Visit: Psychosis Subjective Notes: Conditional Voluntary Interim History: Nursing staff reported that the patient has been resistive to care at night but no overtly violent. Stated she has confused and mostly bed ridden. Today, she had the MRI and there were no changes, new new vascular events. Review of Systems Acute medical concerns: Yes The patient remains weight changes in her mental status Medical Review of Systems: changed Mental Status Exam Mental Status Exam Patient Appearance: Well Grooomed (On hospital gowns) Patient Orientation: Person Level of Consciousness: Drowsy and Lethargic Patient Behavior: Passive Mood Description: Flat Affect Description: Flat Patient Cognition Impaired: Yes Ability to Follow Directions: Poor Speech Pattern: No Speech Hallucinations: None Delusions: Not Present Thought Content: positive for Poverty of Content Judgement: Poor Diagnostics Vital Signs (24Hr): Vital Signs - 24 hr 04/30/21 18:00 05/01/21 06:00 Temperature 99.4 F 97.2 F Pulse Rate 57 60 Respiratory Rate 16 Blood Pressure 153/72 H 137/66 Pulse Oximetry 98 98 Body Mass Index 22.7 Labs Results: 04/27/21 17:58 05/01/21 06:39 Labs: Laboratory Results - last 48 hr 05/01/21 05/01/21 06:39 06:39 Sodium 142 Potassium 3.7 D Chloride 106 Carbon Dioxide 30 H Anion Gap 10 L BUN 6 L D Creatinine 0.75 Estim Creat Clear Calc 75.6 Estimated GFR > 60 Random Glucose 99 Calcium 9.0 D Total Bilirubin 1.1 H Direct Bilirubin 0.4 AST 17 ALT 12 Alkaline Phosphatase 93 Total Protein 6.0 L Albumin 3.6 Valproic Acid 79.9 Imaging Radiology Impressions: ITS Impressions Head CT 04/25/21 18:28 IMPRESSION: Expected evolution of small right-sided low attenuating subdural hematoma. No new intracranial hemorrhage and no mass effect. Brain MRI 05/01/21 12:54 IMPRESSION: 1. No acute intracranial abnormalities. 2. Mild to moderate underlying microangiopathy. 3. There is a degree of generalized cerebral volume loss with prominence of both the ventricles and sulcal spaces. However, there may be mildly disproportionate prominence of the ventricles. This may be due to disproportionate central volume loss; however, correlation with symptoms of potentially superimposed normal pressure hydrocephalus is recommended. Medications Medications Current Medications Acetaminophen (Acetaminophen Supp 650 Mg Supp.Rect) 650 mg [place] Q6H PRN PRN Reason: Pain, Mild (Pain Scale 1-3) Last Admin: 04/28/21 13:58 Dose: 650 mg Documented by: Acetaminophen (Acetaminophen 325 Mg Tablet) 650 mg PO Q4H PRN PRN Reason: Pain, Moderate (Pain Scale 4-6 Last Admin: 04/24/21 16:01 Dose: 650 mg Documented by: Al Hydroxide/Mg Hydroxide (Magnesium Hydrox/Alum Hydrox 30 Ml Oral.Susp) 30 ml PO Q6H PRN PRN Reason: Heartburn/Nausea Benztropine Mesylate (Benztropine Mesylate 2 Mg/2 Ml Vial) 1 mg IM BID PRN PRN Reason: muscle rigidity Last Admin: 04/28/21 13:56 Dose: 1 mg Documented by: Hydroxyzine HCl (Hydroxyzine Hcl 25 Mg Tablet) 25 mg PO BEDTIME PRN PRN Reason: Anxiety Valproic Acid 150 mg/ Dextrose 51.5 mls @ 52.506 mls/hr IV Q6H [facility] Last Admin: 05/01/21 05:18 Dose: 52.5 mls/hr Documented by: Dextrose/Sodium Chloride (D5ns) 1,000 mls @ 80 mls/hr IVCONT .[id number] [facility] Last Admin: 04/30/21 16:01 Dose: 80 mls/hr Documented by: Lidocaine (Lidocaine 4 % Patch Adh..Patch) 1 patch TRANSDERMA DAILY [facility]; Protocol Last Admin: 05/01/21 10:29 Dose: Not Given Documented by: Lorazepam (Lorazepam 2 Mg/Ml Vial) 1 mg IVPUSH Q6H PRN PRN Reason: agitation. Use sparingly Last Admin: 04/30/21 13:39 Dose: 1 mg Documented by: Magnesium Hydroxide (Milk Of Magnesia 30 Ml Oral.Susp) 30 ml PO DAILY PRN PRN Reason: Constipation Olanzapine (Olanzapine 5 Mg Tablet) 5 mg PO Q4H PRN PRN Reason: agitation Last Admin: 04/24/21 07:52 Dose: 5 mg Documented by: Sodium Chloride (0.9 % Sodium Chloride Flush 3 Ml Syringe) 3 ml IVFLUSH QSHIFT [facility] Last Admin: 05/01/21 10:28 Dose: Not Given Documented by: Trazodone HCl (Trazodone Hcl 50 Mg Tablet) 50 mg PO BEDTIME PRN PRN Reason: Insomnia Allergies Allergies Allergy/AdvReac Type Severity Reaction Status Date / Time No Known Allergies Allergy Verified 04/11/21 20:47 Assessment & Plan Assessment & Plan (1) Subdural hematoma: Status: Acute Code(s): S06.5X9A - Traumatic subdural hemorrhage with loss of consciousness of unspecified duration, initial encounter Assessment and Plan: Insignificant. Not seen on latest MRI (2) Seizure disorder: Status: Acute Code(s): G40.909 - Epilepsy, unspecified, not intractable, without status epilepticus Assessment and Plan: Valproic acid level mid to high therapeutic. No further Sz. 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 Currently she is with altered mental status mostly in bed unresponsive. MRI came back normal with no changes from previous CT scans. We discussed the case with neurologist and they agreed on the plan of continuing with MRI. Plan 1. Consult with Neurology. 2. Continue with same medications Greater than 50% of the session was spent on counseling and/or coordination of care Reason for contiued inpatient stay Substantial Risk for: inability to function
[2021-05-01] MEDS: Dextrose 5 % and 0.9 % NaCl 1,000 ML 80 ML IVCONT (18:07)
--- NOTE | 2021-05-01 18:11 | PC.NURSE ---
Pt pulled out IV to right AC, given new IV to right inner wrist. Pt with soft wrist restraints bilateral wrists to preserve integrity of IV to right inner wrist. +CMS to bilateral wrists, checked every half hour by RN. Pt resting comfortably with +CMS to all extremities.
[2021-05-01 21:10] VITALS: BP 146/81; PULSE 62; RESP 15; TEMP 37.1; O2SAT 98
[2021-05-01 23:15] VITALS: BP 159/70; PULSE 48; RESP 13; TEMP 36.3; O2SAT 98
[2021-05-02] VITALS (9 sets, daily range): BP systolic 136–164; BP diastolic 67–100; PULSE 50–70; RESP 14–20; TEMP 36.2–36.9; O2SAT 96–100
--- NOTE | 2021-05-02 04:45 | PC.NURSE ---
Patient in soft wrist restraints at start of shift d/t mulitple IVs pulled over course of treatment and maintaining access for IVF and IV meds. Restraint protocol followed and paperwork filled out during the shift; after discussion with Nursing [employer] Specialist right wrist restraint was removed @9:15pm and left restraint remained applied, IV access at right wrist. No attempts to remove IV access. SPARKS spontaneously while in bed. No oral intake. Remained lethargic through the shift; waking during care, disoriented, unable to follow directions, nonverbal other than yelling Ow when touched or during care. Resistive to rolling during care, noncombative. No seizure activity noted. Seizure pads to side rails. Sequential Compression Boots in place. Patient remained in bed throughout the shift. Video monitoring in place.
[2021-05-02] MEDS: Dextrose 5 % and 0.9 % NaCl 1,000 ML 80 ML IVCONT (06:20)
[2021-05-02] MEDS: Lidocaine 4 % Patch ADH..PATCH 1 PATCH TRANSDERMA (08:15)
--- NOTE | 2021-05-02 10:06 | MHC.SLORD ---
Speech Language Pathology Order Status: Updated with RN who reported that pt appears to be presenting the same as yesterday (refusing PO, lethargic). REPORTING MANAGER arrived to unit to assess pt and attempt evaluation though when this clinician arrived, RN reported that pt was asleep. REPORTING MANAGER will return later in the day as schedule allows or tomorrow morning. RN was made aware.
--- NOTE | 2021-05-02 11:03 | HO.PSYCHPN ---
Subjective Subjective Date of Service: 05/02/21 Reason For Visit: Psychosis Subjective Notes: Conditional Voluntary Interim History: The nursing staff reported this is the 7th of the patient not eating or drinking, now with an IV fluids. Her Depakote level is therapeutic range. She is nonverbal, sometimes he Drowns out of pain. Yesterday, her MRI came up without new changes. Today, the patient remains on her bed sleeping. We would consult Neurology again. Mental Status Exam Mental Status Exam Patient Appearance: Well Grooomed Level of Consciousness: Sedated and Lethargic Patient Behavior: Fatigued Mood Description: Blunted Patient Cognition Impaired: Yes Ability to Follow Directions: Poor Speech Pattern: No Speech Hallucinations: None Judgement: Poor Diagnostics Vital Signs (24Hr): Vital Signs - 24 hr 05/01/21 21:10 05/01/21 23:15 05/02/21 01:15 Temperature 98.8 F 97.4 F 97.1 F Pulse Rate 62 48 L 50 Respiratory Rate 15 13 14 Blood Pressure 146/81 H 159/70 H 148/67 H Pulse Oximetry 98 98 99 05/02/21 03:37 05/02/21 05:15 05/02/21 07:30 Temperature 97.4 F 97.2 F 97.9 F Pulse Rate 56 53 60 Respiratory Rate 14 14 14 Blood Pressure 139/75 136/96 H 159/83 H Pulse Oximetry 100 98 99 05/02/21 09:41 Temperature 97.7 F Pulse Rate 69 Respiratory Rate 14 Blood Pressure 161/91 H Pulse Oximetry 100 Body Mass Index 22.7 Labs Results: 04/27/21 17:58 05/01/21 06:39 Labs: Laboratory Results - last 48 hr 05/01/21 05/01/21 06:39 06:39 Sodium 142 Potassium 3.7 D Chloride 106 Carbon Dioxide 30 H Anion Gap 10 L BUN 6 L D Creatinine 0.75 Estim Creat Clear Calc 75.6 Estimated GFR > 60 Random Glucose 99 Calcium 9.0 D Total Bilirubin 1.1 H Direct Bilirubin 0.4 AST 17 ALT 12 Alkaline Phosphatase 93 Total Protein 6.0 L Albumin 3.6 Valproic Acid 79.9 Imaging Radiology Impressions: ITS Impressions Head CT 04/25/21 18:28 IMPRESSION: Expected evolution of small right-sided low attenuating subdural hematoma. No new intracranial hemorrhage and no mass effect. Brain MRI 05/01/21 12:54 IMPRESSION: 1. No acute intracranial abnormalities. 2. Mild to moderate underlying microangiopathy. 3. There is a degree of generalized cerebral volume loss with prominence of both the ventricles and sulcal spaces. However, there may be mildly disproportionate prominence of the ventricles. This may be due to disproportionate central volume loss; however, correlation with symptoms of potentially superimposed normal pressure hydrocephalus is recommended. Medications Medications Current Medications Acetaminophen (Acetaminophen Supp 650 Mg Supp.Rect) 650 mg [place] Q6H PRN PRN Reason: Pain, Mild (Pain Scale 1-3) Last Admin: 04/28/21 13:58 Dose: 650 mg Documented by: Acetaminophen (Acetaminophen 325 Mg Tablet) 650 mg PO Q4H PRN PRN Reason: Pain, Moderate (Pain Scale 4-6 Last Admin: 04/24/21 16:01 Dose: 650 mg Documented by: Al Hydroxide/Mg Hydroxide (Magnesium Hydrox/Alum Hydrox 30 Ml Oral.Susp) 30 ml PO Q6H PRN PRN Reason: Heartburn/Nausea Benztropine Mesylate (Benztropine Mesylate 2 Mg/2 Ml Vial) 1 mg IM BID PRN PRN Reason: muscle rigidity Last Admin: 04/28/21 13:56 Dose: 1 mg Documented by: Hydroxyzine HCl (Hydroxyzine Hcl 25 Mg Tablet) 25 mg PO BEDTIME PRN PRN Reason: Anxiety Valproic Acid 150 mg/ Dextrose 51.5 mls @ 52.506 mls/hr IV Q6H [facility] Last Infusion: 05/02/21 06:23 Dose: Infused Documented by: Dextrose/Sodium Chloride (D5ns) 1,000 mls @ 80 mls/hr IVCONT .[id number] [facility] Last Admin: 05/02/21 06:20 Dose: 80 mls/hr Documented by: Lidocaine (Lidocaine 4 % Patch Adh..Patch) 1 patch TRANSDERMA DAILY [facility]; Protocol Last Admin: 05/02/21 08:15 Dose: 1 patch Documented by: Magnesium Hydroxide (Milk Of Magnesia 30 Ml Oral.Susp) 30 ml PO DAILY PRN PRN Reason: Constipation Olanzapine (Olanzapine 5 Mg Tablet) 5 mg PO Q4H PRN PRN Reason: agitation Last Admin: 04/24/21 07:52 Dose: 5 mg Documented by: Sodium Chloride (0.9 % Sodium Chloride Flush 3 Ml Syringe) 3 ml IVFLUSH QSHIFT [facility] Last Admin: 05/02/21 08:32 Dose: Not Given Documented by: Trazodone HCl (Trazodone Hcl 50 Mg Tablet) 50 mg PO BEDTIME PRN PRN Reason: Insomnia Allergies Allergies Allergy/AdvReac Type Severity Reaction Status Date / Time No Known Allergies Allergy Verified 04/11/21 20:47 Assessment & Plan Assessment & Plan (1) Subdural hematoma: Status: Acute Code(s): S06.5X9A - Traumatic subdural hemorrhage with loss of consciousness of unspecified duration, initial encounter Assessment and Plan: Insignificant. Not seen on latest MRI (2) Seizure disorder: Status: Acute Code(s): G40.909 - Epilepsy, unspecified, not intractable, without status epilepticus Assessment and Plan: Valproic acid level mid to high therapeutic. No further Sz. 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 Currently she is with altered mental status mostly in bed unresponsive. MRI came back normal with no changes from previous CT scans. We discussed the case with neurologist and they agreed on the plan of continuing with MRI. Plan 1. Consult with Neurology: no new evidence of a new stroke. 2. Continue with same medications Greater than 50% of the session was spent on counseling and/or coordination of care Reason for contiued inpatient stay Substantial Risk for: inability to function and med/psych decompensation
--- NOTE | 2021-05-02 13:39 | MHC.CLN ---
F/U DAY 7 OF LIMITED OR NO PO. PATIENT ASLEEP AT TIME OF SPECIAL EDUCATION PROFESSOR VISIT. CONTINUES WITH REGULAR DIET, ENSURE CLEAR TID, PER MOLST, NO ARTIFICIAL NUTRITION. CONTINUE TO FOLLOW DIET AND INTAKE.
--- NOTE | 2021-05-02 18:09 | PC.NURSE ---
Patient is alert to self only. Patient is lethargic and observed bed bound. Patient is responsive to arousal. Patient is minimally responsive / verbal. Patient responds to painful stimuli with phrases such as ow! , stop it , no . Patient smiles at staff occasionally when speaking to her. Patient is incontinent and resists ADL care from staff. Urine has orange tint to it with a strong foul odor. Patient is bed bound with little to no ambulation. When patient does stand or ambulate, backwards disequilibrium is exhibited, Patient is observed leaning backwards onto staff. Gait is unsteady when standing/ambulating. Patient currently has a soft wrist restrain currently applied. Patient has D5 NS running continuously via IV. Patient is taking valproic acid. Daughter visited the patient today, and appeared to make pt smile. Per daughters report patient drank some apple juice and ate her container of vanilla ice cream . Patient currently has sequential compression device on BLE.
[2021-05-02] MEDS: LORazepam 2 MG/ML VIAL 1 MG IVPUSH (19:50)
[2021-05-03] MEDS: 0.9 % Sodium Chloride Flush 3 ML SYRINGE IVFLUSH (09:21)
[2021-05-03 09:35] VITALS: BP 140/60; PULSE 78; RESP 16; TEMP 36.4; O2SAT 100
--- NOTE | 2021-05-03 10:24 | MHC.SLORD ---
Speech Language Pathology Order Status: Per CM note, this is day 8 limited or no PO. Jacquiter reports that patient has been refusing food and liquid. She sometimes accepts a very limited amount from her daughter. Per MD note, MRI showed no new changes. [employer] offered several different food and drink options, but patient refused despite encouragement. Patient did not follow commands. [employer] will continue to follow.
[2021-05-03] MEDS: Lidocaine 4 % Patch ADH..PATCH 1 PATCH TRANSDERMA (10:42)
[2021-05-03] MEDS: Dextrose 5 % and 0.9 % NaCl 1,000 ML 80 ML IVCONT ×2 (10:43→23:39)
[2021-05-03 12:50] VITALS: BMI 24.6
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
[2021-05-04 06:00] VITALS: BP 114/68; PULSE 68; TEMP 37; O2SAT 98
[2021-05-04] MEDS: Lidocaine 4 % Patch ADH..PATCH 1 PATCH TRANSDERMA (09:44)
--- NOTE | 2021-05-04 09:59 | MHC.SLORD ---
Speech Language Pathology Order Status: Per EMR, today castillo day 9 of no/limited PO intake. Attempted to see pt while she was seated upright in her bedside chair. Pt declined all PO offered. She was non-verbal and unable to follow any directions. RN and PCT reported that pt's daughter offered her breakfast this morning while visiting and pt declined. RN reported that she will request MD to cancel ST order at this time. RN was notified that ST can be re-ordered should pt be willing to trial PO.
--- NOTE | 2021-05-04 12:45 | MHC.CLN ---
F/U DISCONTINUED ENSURE CLEAR SINCE PATIENT NOT TAKING PO. FOLLOW FOR DISCHARGE PLANNING TO HOSPICE.
[2021-05-04] MEDS: Dextrose 5 % and 0.9 % NaCl 1,000 ML 80 ML IVCONT ×2 (13:00→22:13)
[2021-05-04 13:25] LABS: COVID-19 Test Negative (Negative)
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
[2021-05-04] MEDS: LORazepam 2 MG/ML VIAL 1 MG IVPUSH (14:50)
--- NOTE | 2021-05-04 17:04 | PC.NURSE ---
Depakote IV given late today (1499) due to need to replace IV.
[2021-05-04 20:39] VITALS: BP 138/74; PULSE 52; RESP 16; TEMP 36.6; O2SAT 16
[2021-05-05] MEDS: LORazepam 2 MG/ML VIAL IVPUSH (09:30)
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
== END 2021-05-05 10:30 | disposition hospice, home (50) | DRG 58 ==
PROVIDERS: Psychiatry & Neurology Neurology; Psychiatry & Neurology Psychiatry; Social Worker; Admitting Provider Psychiatry & Neurology Psychiatry; Visit Provider Psychiatry & Neurology Psychiatry
DX: S06.9X9S Unspecified intracranial injury with loss of consciousness of unspecified duration, sequela (principal); F01.51 Vascular dementia, unspecified severity, with behavioral disturbance; G40.909 Epilepsy, unspecified, not intractable, without status epilepticus; Z91.83 Wandering in diseases classified elsewhere; Z20.822 Contact with and (suspected) exposure to COVID-19; Z79.899 Other long term (current) drug therapy
CPT/HCPCS: 36415; 70450; 70551; 80048; 80053; 80076; 80164; 80178; 81001; 82140; 85025; 87635; J0515; J2060; J2270